=== PATIENT | female | born 1965 | race Caucasian/White ===

== ENCOUNTER 2017-04-11 08:12 | Outpatient (POV) | payer BC, SELFPAY | END 2017-04-11 13:55 | disposition home or self-care (01) | PROVIDERS: Visit Provider Podiatrist | DX: M76.72 Peroneal tendinitis, left leg (principal); M72.2 Plantar fascial fibromatosis; M25.572 Pain in left ankle and joints of left foot | CPT/HCPCS: 99213 ==

== ENCOUNTER → 2017-06-29 08:43 | Outpatient (CLI) | payer BC, SELFPAY ==
--- NOTE | 2017-06-29 08:55 | MM_ITS ---
MM Dig screening mamm BI w/CAD CAD Screening COMPARISON: Digital mammograms 10/14/2014 and 10/22/2015 INDICATION: There is no personal or family history of breast cancer TECHNIQUE: Standard CC and MLO images were obtained. R2 CAD reviewed. FINDINGS: Moderate diffuse fiber glandular densities are seen throughout both breasts. Again noted is a stable area of asymmetric glandular density upper outer quadrant left breast. There is a possible new nodular density just deep to the nipple of the left breast. This likely is a small cyst but recommend patient return for ultrasound examination for better evaluation. There are no suspicious microcalcifications. IMPRESSION: Moderate breast density with possible new asymmetric density left breast likely a cyst but recommend follow-up ultrasound BI-RADS Category: 0 Need Additional Imaging Evaluation RECOMMENDED FOLLOW-UP: IMM - IMMEDIATE FOLLOW-UP RECOMMENDED (A letter has been sent to the patient regarding results of the study.)
== END ==
PROVIDERS: PCP Internal Medicine Adolescent Medicine; Visit Provider Internal Medicine Adolescent Medicine
DX: Z12.31 Encounter for screening mammogram for malignant neoplasm of breast (principal)
CPT/HCPCS: 77067

== ENCOUNTER → 2017-07-11 10:24 | Outpatient (CLI) | payer BC, SELFPAY ==
--- NOTE | 2017-07-11 10:29 | US_ITS ---
US breast LT complete COMPARISON: 06/29/2017 INDICATION: Follow-up abnormal mammogram ORDERING PHYSICIAN: Vivian Haines PATIENT AGE: 52 years TECHNIQUE: Left breast ultrasound with axilla FINDINGS: There is a 7 x 5 mm cyst at the 2:00 region of the left breast near the nipple corresponding to the mammographic abnormality. Small nodes are present in the sella. No suspicious nodules evident IMPRESSION: Mammographic abdomen corresponds to benign-appearing cyst BI-RADS Category: 2 Benign Finding(s) RECOMMENDED FOLLOW-UP: 1YR - 1 YEAR FOLLOW-UP (A letter has been sent to the patient regarding results of the study.)
== END ==
PROVIDERS: PCP Internal Medicine Adolescent Medicine; Visit Provider Nurse Practitioner Family
DX: R92.8 Other abnormal and inconclusive findings on diagnostic imaging of breast (principal)
CPT/HCPCS: 76641

== ENCOUNTER → 2018-03-03 07:05 | Outpatient (CLI) | payer BC, SELFPAY ==
[2018-03-03 08:31] LABS: Basophils % 0.3 % (0.1-2.0); Eosinophils # 0.1 K/mm3 (0.0-0.4); Eosinophils % 1.9 % (0.1-12.0); Hematocrit 43.3 % (37.0-47.0); Hemoglobin 14.1 g/dL (12.2-16.2); Lymphocytes # 2.3 K/mm3 (0.7-4.5); Lymphocytes % 33.3 K/mm3 (10-50); Mean Corpuscular HGB Conc 32.6 g/dL (31.8-35.4); Mean Corpuscular Hemoglobin 29.3 pg (27.0-31.2); Mean Platelet Volume 7.4 fl (7.4-10.4); Monocytes # 0.4 K/mm3 (0.1-1.0); Monocytes % 5.9 % (1.7-9.3); Neutrophils # 3.9 K/mm3 (1.8-7.8); Neutrophils % 58.6 % (37.0-80.0); Platelet Count 281 K/mm3 (142-424); Red Blood Count 4.81 M/mm3 (4.20-5.40); White Blood Count 6.7 K/mm3 (4.8-10.8)
[2018-03-03 09:25] LABS: Alanine Aminotransferase 35 U/L (12-78); Albumin Level 3.9 gm/dL (3.4-5.0); Albumin/Globulin Ratio 1.3 (1.1-1.8); Alkaline Phosphatase 82 U/L (46-116); Anion Gap 9.5 mEq/L (5-15); Aspartate Amino Transferase 30 U/L (15-37); Bilirubin,Total 0.6 mg/dL (0.2-1.0); Blood Urea Nitrogen 13 mg/dL (7-18); Calcium 9.1 mg/dL (8.5-10.1); Carbon Dioxide 31 mmol/L (21.0-32.0); Chloride 106 mmol/L (98-107); Chol/HDL Ratio 1.9 (1-3.5); Cholesterol 171 mg/dL (140-200); Creatinine,Serum 0.95 mg/dL (0.55-1.02); Estimated Glomerular Filt Rate 62 ml/min (>60); Free Thyroxine Index 2.4 ug/dL (5.93-13.13); GFR (African American) 75 ML/MIN (>60); Globulin 3.1 gm/dl (1.3-3.2); Glucose 87 mg/dL (74-106); HDL Cholesterol 88 mg/dL (29-89); LDL Cholesterol 78 mg/dL (0-130); Potassium 4.5 mmoL/L (3.5-5.1); Sodium 142 mmol/L (136-145); T4 (Thyroxine) 7.5 ug/dl (4.7-13.3); Thyroid Stimulating Hormone 10.35 uIU/ml (0.358-3.740); Triglycerides 25 mg/dL (30-200); Triiodothryronine (T3) Uptake 32 % (31-39); VLDL Cholesterol 5 mg/dL (0-40)
== END ==
PROVIDERS: PCP Internal Medicine Adolescent Medicine; Visit Provider Internal Medicine Adolescent Medicine
DX: E03.9 Hypothyroidism, unspecified (principal)
CPT/HCPCS: 36415; 80053; 80061; 84436; 84443; 84479; 85025

== ENCOUNTER → 2018-08-02 06:58 | Outpatient (CLI) | payer BC, SELFPAY ==
[2018-08-02 07:16] LABS: Basophils % 0.4 % (0.1-2.0); Eosinophils # 0.2 K/mm3 (0.0-0.4); Eosinophils % 2.1 % (0.1-12.0); Hematocrit 41.8 % (37.0-47.0); Hemoglobin 13.3 g/dL (12.2-16.2); Lymphocytes # 2.8 K/mm3 (0.7-4.5); Lymphocytes % 40.2 % (10-50); Mean Corpuscular HGB Conc 31.8 g/dL (31.8-35.4); Mean Corpuscular Hemoglobin 28.8 pg (27.0-31.2); Mean Corpuscular Volume 90.3 fl (81-99); Mean Platelet Volume 7.6 fl (7.4-10.4); Monocytes # 0.3 K/mm3 (0.1-1.0); Monocytes % 4.8 % (1.7-9.3); Neutrophils # 3.7 K/mm3 (1.8-7.8); Neutrophils % 52.4 % (37.0-80.0); Platelet Count 282 K/mm3 (142-424); Red Blood Count 4.63 M/mm3 (4.20-5.40); Red Cell Distribution Width 14.3 % (11.5-17.5)
[2018-08-02 08:50] LABS: Alanine Aminotransferase 29 U/L (12-78); Albumin Level 3.8 gm/dL (3.4-5.0); Albumin/Globulin Ratio 1.2 (1.1-1.8); Alkaline Phosphatase 92 U/L (46-116); Anion Gap 12.3 mEq/L (5-15); Aspartate Amino Transferase 21 U/L (15-37); Bilirubin,Total 0.5 mg/dL (0.2-1.0); Blood Urea Nitrogen 14 mg/dL (7-18); Carbon Dioxide 28 mmol/L (21.0-32.0); Chloride 105 mmol/L (98-107); Chol/HDL Ratio 2.3 (1-3.5); Cholesterol 164 mg/dL (140-200); Creatinine,Serum 0.84 mg/dL (0.55-1.02); Estimated Glomerular Filt Rate 71 ml/min (>60); Free Thyroxine Index 4.2 ug/dL (5.93-13.13); GFR (African American) 86 ML/MIN (>60); Globulin 3.1 gm/dl (1.3-3.2); Glucose 90 mg/dL (74-106); HDL Cholesterol 71 mg/dL (29-89); LDL Cholesterol 81 mg/dL (0-130); Potassium 4.3 mmoL/L (3.5-5.1); Sodium 141 mmol/L (136-145); T4 (Thyroxine) 10.7 ug/dl (4.7-13.3); Thyroid Stimulating Hormone 0.05 uIU/ml (0.358-3.740); Total Protein,Serum 6.9 gm/dL (6.4-8.2); Triglycerides 60 mg/dL (30-200); Triiodothryronine (T3) Uptake 39 % (31-39); VLDL Cholesterol 12 mg/dL (0-40)
== END ==
PROVIDERS: Visit Provider Internal Medicine Adolescent Medicine
DX: E03.9 Hypothyroidism, unspecified (principal); Z86.39 Personal history of other endocrine, nutritional and metabolic disease
CPT/HCPCS: 36415; 80053; 80061; 84436; 84443; 84479; 85025

== ENCOUNTER → 2018-12-28 16:07 | Outpatient (CLI) | payer BC, SELFPAY ==
--- NOTE | 2018-12-28 16:11 | MM_ITS ---
PROCEDURE: MM DIG SCREENING MAMM BI W/CAD CLINICAL INDICATION: SCREENING There is no personal or family history of breast cancer COMPARISON: [facility] DIG MAMM-SCREEN [facility] from 10/14/2014 [facility] DIG MAMM-SCREEN [facility] from 10/22/2015 [facility] MM Dig screening mamm BI w/CAD from 06/29/2017 TECHNIQUE: Standard CC and MLO images were obtained. R2 CAD reviewed. FINDINGS: There has been some fatty replacement of the breast parenchyma since the previous 2 exams. Minimal scattered fibroglandular densities are seen in the central portions bilaterally. There is a mole marker right breast. Is a stable asymmetric density upper-outer quadrant left breast likely asymmetric glandular tissue. There is no suspicious lesion on the no suspicious microcalcifications. IMPRESSION: Fatty type breast parenchyma with no suspicious lesion seen BI-RAD Category: 2 Benign Finding(s) FOLLOW-UP: 1YR 1 Year Follow-up (A letter has been sent to the patient regarding results of the study.) Dictated by: Dr. Tomas Fabian MD 12/30/2018 13:35 Signed by: <Electronically signed by Dr. Tomas Fabian MD in [place]> 12/30/2018 13:35
== END ==
PROVIDERS: PCP Internal Medicine Adolescent Medicine; Visit Provider Internal Medicine Adolescent Medicine
DX: Z12.31 Encounter for screening mammogram for malignant neoplasm of breast (principal)
CPT/HCPCS: 77067

== ENCOUNTER → 2019-06-20 15:55 | Outpatient (CLI) | payer BC, SELFPAY ==
[2019-06-20 16:27] LABS: Basophils # 0.1 K/mm3 (0-0.2); Basophils % 0.6 % (0.1-2.0); Eosinophils # 0.1 K/mm3 (0.0-0.4); Eosinophils % 1.7 % (0.1-12.0); Hematocrit 41.9 % (37.0-47.0); Hemoglobin 13.9 g/dL (12.2-16.2); Lymphocytes # 2.8 K/mm3 (0.7-4.5); Lymphocytes % 35.7 % (10-50); Mean Corpuscular Hemoglobin 28.7 pg (27.0-31.2); Mean Corpuscular Volume 86.8 fl (81-99); Monocytes # 0.4 K/mm3 (0.1-1.0); Monocytes % 5.4 % (1.7-9.3); Neutrophils # 4.5 K/mm3 (1.8-7.8); Neutrophils % 56.6 % (37.0-80.0); Platelet Count 283 K/mm3 (142-424); Red Blood Count 4.83 M/mm3 (4.20-5.40); Red Cell Distribution Width 13.5 % (11.5-17.5); White Blood Count 7.9 K/mm3 (4.8-10.8)
[2019-06-20 19:56] LABS: Alanine Aminotransferase 22 U/L (9-52); Albumin Level 4.2 g/dL (3.4-5.0); Albumin/Globulin Ratio 1.4 (1.1-1.8); Alkaline Phosphatase 87 U/L (46-116); Anion Gap 14.5 mEq/L (5-15); Aspartate Amino Transferase 21 U/L (15-37); Bilirubin,Total 0.4 mg/dL (0.2-1.0); Blood Urea Nitrogen 17 mg/dL (7-18); Calcium 9.4 mg/dL (8.5-10.1); Carbon Dioxide 28 mmol/L (21.0-32.0); Chloride 105 mmol/L (98-107); Cholesterol 155 mg/dL (140-200); Estimated Glomerular Filt Rate 65 ml/min (>60); Free Thyroxine Index 4.5 ug/dL (5.93-13.13); GFR (African American) 79 ML/MIN (>60); Globulin 2.9 gm/dl (1.3-3.2); Glucose 77 mg/dL (74-106); HDL Cholesterol 77 mg/dL (29-89); LDL Cholesterol 69 mg/dL (0-130); Potassium 4.5 mmoL/L (3.5-5.1); Sodium 143 mmol/L (137-145); T4 (Thyroxine) 11.9 ug/dl (4.7-13.3); Thyroid Stimulating Hormone 0.01 uIU/ml (0.358-3.740); Total Protein,Serum 7.1 g/dL (6.4-8.2); Triglycerides 47 mg/dL (30-200); Triiodothryronine (T3) Uptake 38 % (31-39); VLDL Cholesterol 9 mg/dL (0-40)
== END ==
PROVIDERS: Visit Provider Internal Medicine Adolescent Medicine
DX: E03.9 Hypothyroidism, unspecified (principal); Z86.39 Personal history of other endocrine, nutritional and metabolic disease
CPT/HCPCS: 36415; 80053; 80061; 84436; 84443; 84479; 85025

== ENCOUNTER 2019-11-22 14:03 | Emergency (ER) | payer OTHER, SELFPAY ==
[2019-11-22 14:13] VITALS: BP 139/79; PULSE 69; RESP 18; TEMP 36.7; O2SAT 98; BMI 33.4
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
[2019-11-22 14:29] VITALS: BP 139/73; PULSE 77; RESP 20; O2SAT 97
--- NOTE | 2019-11-22 14:48 | XR_ITS ---
PROCEDURE: XR HAND RT MIN 3V CLINICAL INDICATION: COMPARISON: No exams were available for comparison FINDINGS: No fracture or dislocation. No lytic or blastic change. There is normal mineralization. The joint spaces are well-preserved. No significant degenerative/arthritic changes. No erosive changes evident. Other findings:None. IMPRESSION: No acute findings. Dictated by: Maximo Armas MD 11/22/2019 15:34 Electronically signed by Maximo Armas MD in [place] 11/22/2019 15:34
[2019-11-22 15:24] VITALS: BP 123/85; PULSE 80; RESP 18; TEMP 36.8; O2SAT 98
== END 2019-11-22 15:26 | disposition home or self-care (01) ==
PROVIDERS: Emergency Provider Emergency Medicine; PCP Internal Medicine Adolescent Medicine
DX: S50.811A Abrasion of right forearm, initial encounter (principal); S63.642A Sprain of metacarpophalangeal joint of left thumb, initial encounter; V89.2XXA Person injured in unspecified motor-vehicle accident, traffic, initial encounter; Z88.0 Allergy status to penicillin
CPT/HCPCS: 29125; 73090; 73130; 99283

== ENCOUNTER → 2020-05-23 12:27 | Outpatient (CLI) | payer BC, SELFPAY ==
[2020-05-23 13:40] LABS: Alanine Aminotransferase 12 U/L (12-78); Albumin Level 4.7 g/dl (3.5-5.0); Albumin/Globulin Ratio 1.6 (1.1-1.8); Alkaline Phosphatase 90 U/L (38-126); Anion Gap 10.8 mEq/L (5-15); Aspartate Amino Transferase 25 U/L (14-36); Bilirubin,Total 0.5 mg/dl (0.2-1.3); Blood Urea Nitrogen 13 mg/dl (7-17); Carbon Dioxide 29 mmol/L (22.0-30.0); Chloride 104 mmol/L (98-107); Chol/HDL Ratio 2.1 (1-3.5); Cholesterol 165 mg/dl (140-200); Estimated Glomerular Filt Rate 65 ml/min (>60); GFR (African American) 79 ML/MIN (>60); Glucose 93 mg/dl (74-100); HDL Cholesterol 80 mg/dl (40-60); Potassium 4.8 mmoL/L (3.5-5.1); Sodium 139 mmol/L (136-145); Total Protein,Serum 7.7 g/dl (6.3-8.2); Triglycerides 55 mg/dl (30-150); VLDL Cholesterol 11 mg/dL (0-40)
[2020-05-23 13:51] LABS: Direct LDL Cholesterol 59.92 mg/dL (100-129)
[2020-05-23 14:10] LABS: Thyroid Stimulating Hormone 7.64 uIU/mL (0.465-4.68)
== END ==
PROVIDERS: Visit Provider Internal Medicine Adolescent Medicine
DX: E04.1 Nontoxic single thyroid nodule (principal); Z79.899 Other long term (current) drug therapy
CPT/HCPCS: 36415; 80053; 80061; 84443

== ENCOUNTER → 2020-06-02 14:39 | Outpatient (CLI) | payer BC, SELFPAY ==
--- NOTE | 2020-06-02 14:44 | US_ITS ---
PROCEDURE: US THYROID CLINICAL INDICATION: THYROID NODULE Follow-up thyroid nodule COMPARISON: US THY US THYROID from 07/21/2015 FINDINGS: Right lobe: 2.3cm x 4.8cm x 2.2cm Left lobe: 1.8cm x 4.5cm x 1.7cm Isthmus: 4 mm. Additional findings: There is mild diffuse heterogeneous echogenicity of the thyroid gland. There is a 14 x 9 mm slightly hyperechoic nodule in the upper pole anteriorly unchanged. A small hyperechoic nodules present in the mid polar region on the left at 5 mm. An additional hyperechoic nodule noted on the left at 12 mm not significantly changed. An additional hyperechoic nodule in the lower pole at 4 mm probably unchanged. IMPRESSION: Enlarged thyroid gland with bilateral hyperechoic nodules which have a benign appearance and are overall not significantly changed Dictated by: Maximo Armas MD 06/03/2020 12:53 Maximo Armas MD in [place] 06/03/2020 12:53
== END ==
PROVIDERS: PCP Internal Medicine Adolescent Medicine; Visit Provider Nurse Practitioner Family
DX: E04.1 Nontoxic single thyroid nodule (principal)
CPT/HCPCS: 76536

== ENCOUNTER → 2020-08-01 08:22 | Outpatient (CLI) | payer BC, SELFPAY ==
[2020-08-01 09:45] LABS: Thyroid Stimulating Hormone 4.65 uIU/mL (0.465-4.68)
== END ==
PROVIDERS: Visit Provider Nurse Practitioner Family
DX: E03.9 Hypothyroidism, unspecified (principal)
CPT/HCPCS: 36415; 84443

== ENCOUNTER → 2021-08-15 08:22 | Outpatient (CLI) | payer BC, SELFPAY ==
[2021-08-15 09:19] LABS: Basophils # 0.1 K/mm3 (0-0.2); Eosinophils # 0.2 K/mm3 (0.0-0.4); Hematocrit 41.6 % (37.0-47.0); Hemoglobin 13.5 g/dL (12.2-16.2); Lymphocytes # 1.4 K/mm3 (0.7-4.5); Lymphocytes % 23.2 % (10-50); Mean Corpuscular HGB Conc 32.4 g/dL (31.8-35.4); Mean Corpuscular Hemoglobin 28.5 pg (27.0-31.2); Mean Corpuscular Volume 87.9 fl (81-99); Mean Platelet Volume 8.5 fl (7.4-10.4); Monocytes # 0.3 K/mm3 (0.1-1.0); Monocytes % 5.6 % (1.7-9.3); Neutrophils # 3.9 K/mm3 (1.8-7.8); Neutrophils % 67.2 % (37.0-80.0); Platelet Count 333 K/mm3 (142-424); Red Blood Count 4.73 M/mm3 (4.20-5.40); Red Cell Distribution Width 15.2 % (11.5-17.5); White Blood Count 5.8 K/mm3 (4.8-10.8)
[2021-08-15 09:41] LABS: Alanine Aminotransferase 19 U/L (12-78); Albumin Level 4.1 g/dl (3.5-5.0); Albumin/Globulin Ratio 1.6 (1.1-1.8); Alkaline Phosphatase 75 U/L (38-126); Anion Gap 8.1 mEq/L (5-15); Aspartate Amino Transferase 23 U/L (14-36); Bilirubin,Total 0.8 mg/dl (0.2-1.3); Blood Urea Nitrogen 12 mg/dl (7-17); Calcium 9.4 mg/dl (8.4-10.2); Carbon Dioxide 29 mmol/L (22.0-30.0); Chloride 108 mmol/L (98-107); Chol/HDL Ratio 2.6 (1-3.5); Cholesterol 146 mg/dl (140-200); Estimated Glomerular Filt Rate 65 ml/min (>60); GFR (African American) 78 ML/MIN (>60); Globulin 2.5 g/dL (1.3-3.2); Glucose 118 mg/dl (74-100); HDL Cholesterol 56 mg/dl (40-60); Potassium 4.1 mmoL/L (3.5-5.1); Sodium 141 mmol/L (136-145); Total Protein,Serum 6.6 g/dl (6.3-8.2); Triglycerides 77 mg/dl (30-150); VLDL Cholesterol 15 mg/dL (0-40)
[2021-08-15 09:52] LABS: Direct LDL Cholesterol 59.45 mg/dL (100-129)
[2021-08-15 09:58] LABS: 25-OH Vitamin D, Total 21.8 ng/mL (30-100)
[2021-08-15 10:12] LABS: Thyroid Stimulating Hormone 3.58 uIU/mL (0.465-4.68)
[2021-08-15 10:31] LABS: Vitamin B12 250 pg/mL (239-931)
== END ==
PROVIDERS: Visit Provider Internal Medicine Adolescent Medicine
DX: E03.9 Hypothyroidism, unspecified (principal); Z86.39 Personal history of other endocrine, nutritional and metabolic disease; R53.81 Other malaise; R53.83 Other fatigue
CPT/HCPCS: 36415; 80053; 80061; 82306; 82607; 84443; 85025

== ENCOUNTER → 2021-10-06 13:07 | Outpatient (CLI) | payer BC, SELFPAY ==
--- NOTE | 2021-10-06 13:10 | MM_ITS ---
PROCEDURE INFORMATION: Exam: MG Bilateral Screening 3D Mammography Exam date and time: 10/06/2021 1:08 PM Age: 56 years old Clinical indication: Screening examination. No family history of breast cancer. TECHNIQUE: Imaging protocol: Bilateral Screening tomosynthesis and 2D mammography including computer-aided detection (CAD) when performed. COMPARISON: 1. MG MM DIG SCREENING MAMM BI W/CAD 12/28/2018 4:21 PM 2. MG [facility] MM Dig screening mamm BI w/CAD 06/29/2017 9:00 AM 3. MG [facility] DIG MAMM-SCREEN [facility] 10/22/2015 9:10 AM 4. MG [facility] DIG MAMM-SCREEN [facility] 10/14/2014 9:27 AM FINDINGS: MAMMOGRAPHY: Breast composition: The breasts are almost entirely fatty. Mass: Interval new suspicious 3.2 cm lobulated, dense mass with architectural distortion in the left central breast, approximately 6-7 o'clock, posterior 3rd (CC image 1372, frame 19 [place] [id number], frame 40). Several 0.5 cm nodules - in the inner lower quadrant, anterior 3rd (about 4.5 cm anterior and inferior to the dominant mass) and outer quadrant middle 3rd (about 2.3 cm lateral to the dominant mass) may reflect additional extent of disease (CC image 1362, frame 26 and MLO image [id number], frame 38). Interval new lobulated 1.0 cm mass in the right upper inner breast, anterior to middle 3rd, (CC image 1026, frame 50 and MLO image 1718, frame 59). Architectural distortion: None. Calcifications: No suspicious calcifications. Asymmetric density: None. Skin thickening: None. Axillary adenopathy: None. IMPRESSION: Patient to be recalled for left diagnostic spot compression in CC and MLO as well as bilateral breast ultrasound for further evaluation of bilateral masses. ASSESSMENT: BI-RADS Category 0: Incomplete- Need Additional Imaging Evaluation and/or Prior Mammograms for Comparison
== END ==
PROVIDERS: PCP Internal Medicine Adolescent Medicine; Visit Provider Internal Medicine Adolescent Medicine
DX: Z12.31 Encounter for screening mammogram for malignant neoplasm of breast (principal)
CPT/HCPCS: 77063; 77067

== ENCOUNTER → 2021-10-26 13:26 | Outpatient (CLI) | payer BC, SELFPAY ==
--- NOTE | 2021-10-26 13:32 | US_ITS ---
PROCEDURE INFORMATION: Exam: US Right Breast, Complete US Left Breast, Complete MG Left Diagnostic Breast Tomosynthesis Exam date and time: 10/26/2021 1:39 PM Age: 56 years old Clinical indication: Recall on the basis of screening mammogram 10/06/2021 for futher evaluation of bilateral breast masses. TECHNIQUE: Imaging protocol: Complete ultrasound of all four quadrants of the Right breast and the retroareolar regions, including ultrasound of the axilla when performed. Complete ultrasound of all four quadrants of the Left breast and the retroareolar regions, including ultrasound of the axilla when performed. Left Diagnostic tomosynthesis and 2D mammography including computer-aided detection (CAD) when performed. Unilateral or bilateral exam. COMPARISON: 1. MG MM DIG SCREENING MAMM BI W/CAD 10/06/2021 1:08 PM 2. MG MM DIG SCREENING MAMM BI W/CAD 12/28/2018 4:21 PM 3. MG [facility] MM Dig screening mamm BI w/CAD 06/29/2017 9:00 AM 4. MG [facility] DIG MAMM-SCREEN [facility] 10/22/2015 9:10 AM FINDINGS: MAMMOGRAPHY: Diagnostic spot compression confirms the approximately 3.5 cm lobulated dense mass with related architectural distortion in the left central breast, approximately 6-7 o'clock posterior 3rd. ULTRASOUND: Bilateral sonography, all 4 quadrants, retroareolar and axilla. On the right, at 1 o'clock, 3 cm from the nipple is a benign-appearing cyst measuring 0.5 x 0.5 x 0.6 cm, which appears to correspond to the mammographic mass. No solid masses demonstrated. Sonographically unremarkable right axillary lymph node. On the left, at 6 o'clock 6 cm from the nipple, hypoechoic mildly lobulated mass, minimal peripheral increased Doppler flow, measuring 3.1 x 2.2 by 3.2 cm, which corresponds to the mammographic mass. No other masses are demonstrated. Sonographically unremarkable left axillary lymph node. IMPRESSION: Recommend ultrasound-guided biopsy of hypoechoic lobulated mass in the left breast at 6 o'clock with correlation to assure that the ultrasound placed clip corresponds to the mammographic finding. (If this is positive for cancer, advise consideration for exent of disease MRI as subcm nodules were suggested in the inner lower and outer quadrant on the initial mammogram, with no sonographic correlate). Sub cm mass on the right corresponds to a cyst at 1 o'clock. ASSESSMENT: BI-RADS Category 4: Suspicious
== END ==
PROVIDERS: PCP Internal Medicine Adolescent Medicine; Visit Provider Internal Medicine Adolescent Medicine
DX: R92.8 Other abnormal and inconclusive findings on diagnostic imaging of breast (principal)
CPT/HCPCS: 76641; 77061; 77065; G0279

== ENCOUNTER → 2021-10-30 08:19 | Outpatient (CLI) | payer BC, SELFPAY ==
--- NOTE | 2021-10-30 08:26 | US_ITS ---
FINAL REPORT CLINICAL HISTORY: lt bresat nodule 6:00 FINDINGS: ULTRASOUND-GUIDED LEFT BREAST CORE BIOPSY TECHNIQUE: Limited images were obtained to localize region of interest. Lesion was noted in the posterior left breast at 6:00. The left breast was prepped in a routine sterile fashion and locally anesthetized with 1% lidocaine. Standard written informed consent was obtained. The biopsy needle was positioned within the outer periphery of the lesion. A total of 4 passes were made with a 18 gauge core biopsy needle. A biopsy marker clip was deployed in satisfactory position. Postbiopsy mammogram showed postbiopsy changes with clip in satisfactory position. Procedure was well tolerated . CONCLUSION: 1. Technically successful ultrasound guided core biopsy of left breast lesion as above. 2. Biopsy marker clip deployed Authenticated and ERN
--- NOTE | 2021-10-30 08:37 | MM_ITS ---
FINAL REPORT CLINICAL HISTORY: post biopsy, breast mass FINDINGS: MAMMOGRAM LEFT TECHNIQUE: Standard digital 2-D views COMPARISON: None DENSITY: There are scattered areas of fibroglandular density FINDINGS: Post biopsy marker clip is noted to be in satisfactory position. The clip is noted to be within a well-circumscribed mass in the posterior left breast located at 6:00. Postbiopsy changes are noted. IMPRESSION: Biopsy marker clip in good position RECOMMENDATION: Pending histopathology evaluation Authenticated and ERN
== END ==
LOC: RAD 08:19
PROVIDERS: PCP Internal Medicine Adolescent Medicine; Visit Provider Internal Medicine Adolescent Medicine
DX: R92.8 Other abnormal and inconclusive findings on diagnostic imaging of breast (principal); N63.25 Unspecified lump in the left breast, overlapping quadrants
CPT/HCPCS: 19083; 77065

== ENCOUNTER → 2021-11-25 12:24 | Outpatient (CLI) | payer BC, SELFPAY | PROVIDERS: PCP Internal Medicine Adolescent Medicine; Visit Provider Surgery Surgical Oncology | DX: Z01.812 Encounter for preprocedural laboratory examination (principal); Z20.822 Contact with and (suspected) exposure to COVID-19; C50.919 Malignant neoplasm of unspecified site of unspecified female breast | CPT/HCPCS: C9803; U0003; U0005 ==

== ENCOUNTER 2023-11-13 08:24 | Emergency (ER) | payer BC, SELFPAY ==
[2023-11-13 08:26] VITALS: BP 116/89; PULSE 75; RESP 18; TEMP 36.7; O2SAT 99; BMI 30.9
--- NOTE | 2023-11-13 08:33 | HMH.EDGENADL ---
Discharge Plan Disposition Patient Disposition: Home, Self-Care Condition: Good Prescriptions Prescriptions: No Action levothyroxine [Euthyrox] 88 mcg tablet 88 mcg PO Patient Comments: TAKE 1 TABLET BY MOUTH ONCE DAILY Clenpiq 10 mg-3.5 gram- 12 gram/160 mL solution 160 ml PO DAILY Qty: 350 0RF Rx Instructions: take first dose at 5-9PM evening before colonoscopy; 2nd dose the next day approximately 5 hrs before colonoscopy Referrals Follow up/Referrals: Dejon Nova MD [Primary Care Provider] - See instructions Activity Restrictions/Add. Instructions Additional Instructions/Restrictions: As we discussed, it is possible that your nausea and vomiting and feeling of dehydration is related to your elevated blood sugars. Please use nausea medication as needed and make sure you are drinking plenty of liquids and keeping an eye on your blood sugars. Please follow-up with your specialist for considerations regarding ongoing management of your immunotherapy. Please return with any new or worsening symptoms. Clinical Impressions Clinical Impression: Hypovolemia Instructions Patient Instructions: DI for Diarrhea and Traveler's Diarrhea -- Adult, DI for Diarrhea and Traveler's Diarrhea -- Child, DI for Nausea -- Adult, DI for Nausea -- Child Discharge ED Provider: Nghia Castrejon General Adult HPI General Chief complaint: Nausea/Vomiting/Diarrhea Stated complaint: feels dehidrated Time Seen by Provider: 11/13/23 08:33 History of Present Illness HPI narrative: The patient presents with a chief complaint of dehydration, nausea, and vomiting. She has a history of cancer, infection, chemotherapy, radiation, and is currently on Keytruda, which has caused her blood sugar levels to increase significantly. She reports difficulty keeping anything in her stomach, including food and fluids, for the past two to three days. She has been experiencing both diarrhea and constipation but denies any pain, fever, shortness of breath, chest pain, or pain with urination. She has been on Keytruda since September and has three more treatments left. Her oncologist is considering stopping the Keytruda due to the elevated blood sugar levels. Her blood sugar is currently under control at 155, but she has not taken insulin for the past two days due to concerns of bottoming out at night. She has been prescribed Phenergan, Zofran, and Reglan for nausea, but has only been taking Phenergan recently, which she believes may be coming back up due to vomiting. She has not taken Reglan for the past three to four days for the same reason. She took Phenergan approximately two hours prior to the visit. Please note that above description of symptoms, in this electronic medical record under categorization of recalled from ER triage doctor by RN are reflective of an initial nursing assessment, however, is not reflective of my full history and physical exam that was personally taken and clarified. Consequentially, this preceding description of symptoms, which may include the patient's categorized chief complaint in the EMR, do not reflect my personal clinical impression, and the ultimate description of history of present illness and patient stated complaints should be deferred to this section of the note. Unless stated otherwise or congruent with this section of the note, additional signs, symptoms, or incongruence should be interpreted as inaccurate with my clinical impression. Related Data Home Medications Medication Instructions Recorded Confirmed levothyroxine 88 mcg tablet 88 mcg PO 10/21/21 02/07/23 (Euthyrox) Previous Rx's Medication Instructions Recorded sod picosulf 10 mg-magnes 3.5 160 ml PO DAILY 2 doses #350 mL 03/18/23 gram-citric 12 gram/160 mL oral solution (Clenpiq) Allergies Allergy/AdvReac Type Severity Reaction Status Date / Time Penicillins [PENICILLINS] Allergy Unknown Verified 02/07/23 13:28 [facility] Disclaimer: The information contained in this section may have been updated after the patient was seen, as this information can be updated by other users. Medical History (Updated 11/13/23 @ 11:23 by Nghia Castrejon MD) Breast cancer Surgical History (Updated 02/07/23 @ 13:29 by BRETT Ash) History of lumpectomy of left breast Family History (Updated 02/07/23 @ 13:29 by BRETT Ash) Other No significant family history Social History (Updated 02/07/23 @ 13:29 by BRETT Ash) Smoking Status: Never smoker alcohol intake: current alcohol intake frequency: holidays/special occasions only substance use type: denies use current occupational status: employed Travel in the last 8 weeks: None housing: house ROS Obtained: Yes other As per HPI Physical Exam General General appearance: alert and in no apparent distress Head Head exam: atraumatic and normocephalic Eye Eye exam: Present normal appearance Neck Neck exam: Present normal inspection Chest Chest inspection: Present normal inspection and symmetric chest wall rise Respiratory Respiratory exam: Present normal lung sounds bilaterally; Absent respiratory distress Cardiovascular Cardiovascular exam: Present regular rate and normal rhythm Abdominal Exam Abdominal exam: Present soft Neurological Exam Neurological exam: Present alert and oriented X3 Psychiatric Psychiatric exam: Present normal affect and normal mood Skin Skin exam: Present warm and dry Other Other exam information: Mucous membranes dry, no abdominal tenderness to palpation, no guarding, no rebound tenderness Medical Decision Making Medical Records Medical records reviewed: Yes I reviewed the patient's medical records. [place] Inquiry Pt receiving controlled substance: No Vital Signs: 11/13/23 08:26 Temperature 98.1 F Temperature Source Oral Pulse Rate [Right] 75 Respiratory Rate 18 Blood Pressure [Right Arm] 116/89 Blood Pressure Mean [Right Arm] 98 02 Sat by Pulse Oximetry 99 Oxygen Delivery Method Room Air Lab Data Lab Results 11/13/23 07:07: Lipase 100 11/13/23 08:41: WBC 4.5 L, RBC 4.63, Hgb 13.9, Hct 43.0, MCV 93.1, MCH 30.1, MCHC 32.4, RDW 15.6, Plt Count 236, MPV 8.2, Neut % (Auto) 75.8, Lymph % (Auto) 16.6, [place] % (Auto) 6.3, Eos % (Auto) 0.9, Baso % (Auto) 0.3, Neut # (Auto) 3.4, Lymph # (Auto) 0.7, [place] # (Auto) 0.3, Eos # (Auto) 0.0, Baso # (Auto) 0.0, Sodium 142, Potassium 4.0, Chloride 107, Carbon Dioxide 27, Anion Gap 12.0, BUN 21 H, Creatinine 0.90, Estimated Creat Clear 99, Estimated GFR 64, Est GFR ( Amer) 78, Glucose 160 H, Calcium 10.3 H, Magnesium 1.9, Total Bilirubin 1.1, AST 69 H, ALT 131 H, Alkaline Phosphatase 192 H, Total Protein 8.0, Albumin 4.7, Globulin 3.3 H, Albumin/Globulin Ratio 1.4 11/13/23 08:49: VBG pH 7.40, VBG pCO2 39.6, VBG pO2 42.1 H, VBG HCO3 23.9, VBG Total CO2 25.1, VBG O2 Saturation 78.3 H, VBG Base Excess -0.9, VBG Lactic Acid 1.7 11/13/23 08:41 11/13/23 08:41 Orders (Tests/Meds): ED MEDICATIONS Discontinued Medications Generic Name Dose Route Start Last Admin Trade Name Freq PRN Reason Stop Dose Admin Lactated Ringer's 1,000 mls @ 999 mls/hr 11/13/23 08:46 11/13/23 08:53 Lactated Ringer's 1000 Ml Bag IV 11/13/23 09:46 999 mls/hr .Q1H1M ONE Administration ORDERS Category Date Time Status CBC w/Auto Diff [Complete Blood Count Auto Diff] Stat Lab 11/13/23 08:41 Completed CMP [Comprehensive Metabolic Panel] Stat Lab 11/13/23 08:41 Completed Lipase Stat Lab 11/13/23 07:07 Completed MAG [Magnesium] Stat Lab 11/13/23 08:41 Completed VBG [Venous Blood Gas] Stat RT 11/13/23 08:49 Completed Medical Decision Narrative: Patient with history and exam per above presenting for evaluation of nausea, vomiting, hyperglycemia, concerns for dehydration Diagnoses considered include hypovolemia, acute kidney injury, electrolyte abnormality, DKA, immunotherapy side effect, pancreatitis, no clinical evidence at this time to warrant imaging given benign abdominal exam, no reported history of chest pain, abdominal pain, or pain elsewhere. ED workup and treatment included: ED MEDICATIONS Discontinued Medications Generic Name Dose Route Start Last Admin Trade Name Freq PRN Reason Stop Dose Admin Lactated Ringer's 1,000 mls @ 999 mls/hr 11/13/23 08:46 11/13/23 08:53 Lactated Ringer's 1000 Ml Bag IV 11/13/23 09:46 999 mls/hr .Q1H1M ONE Administration ORDERS Category Date Time Status CBC w/Auto Diff [Complete Blood Count Auto Diff] Stat Lab 11/13/23 08:41 Completed CMP [Comprehensive Metabolic Panel] Stat Lab 11/13/23 08:41 Completed Lipase Stat Lab 11/13/23 07:07 Completed MAG [Magnesium] Stat Lab 11/13/23 08:41 Completed VBG [Venous Blood Gas] Stat RT 11/13/23 08:49 Completed Labs were independently interpreted by me, significant for AST 69, ALT 131, patient reports these are chronic findings since initiation of immunotherapy, creatinine within normal limits, white blood cell count 4.5. My clinical impression at this time is most consistent with hypovolemia related to recent hyperglycemia. Patient reports complete resolution of symptoms after administration of IV fluid. I discussed my clinical impression with patient and answered all questions. At this time, the evidence for any other entities in the differential is insufficient to warrant any further testing or ED observation. This was explained to the patient. The patient was advised that persistent or worsening symptoms require further evaluation. I confirmed the patient's understanding of this discussion. Critical Care Critical Care Time Critical Care Time: No
[2023-11-13] MEDS: LACTATED RINGERS 1000ML 1,000 ML 999 ML IV (08:53)
[2023-11-13 08:55] LABS: Lactate Venous 1.7 mmol/L (0.4-2.0); VBG Base Excess -0.9 mmol/L (-2.4-2.3); VBG HCO3 23.9 mmol/L (23-30); VBG Oxygen Saturation 78.3 % (50-70); VBG PCO2 39.6 mmol/L (35-51); VBG PO2 42.1 mmol/L (28-40); VBG Total CO2 25.1 mmol/L (23-27)
[2023-11-13 09:06] LABS: Basophils % 0.3 % (0.1-2.0); Eosinophils % 0.9 % (0.1-12.0); Hemoglobin 13.9 g/dL (12.2-16.2); Lymphocytes # 0.7 K/mm3 (0.7-4.5); Lymphocytes % 16.6 % (10-50); Mean Corpuscular HGB Conc 32.4 g/dL (31.8-35.4); Mean Corpuscular Hemoglobin 30.1 pg (27.0-31.2); Mean Corpuscular Volume 93.1 fl (81-99); Mean Platelet Volume 8.2 fl (7.4-10.4); Monocytes # 0.3 K/mm3 (0.1-1.0); Monocytes % 6.3 % (1.7-9.3); Neutrophils # 3.4 K/mm3 (1.8-7.8); Neutrophils % 75.8 % (37.0-80.0); Platelet Count 236 K/mm3 (142-424); Red Blood Count 4.63 M/mm3 (4.20-5.40); Red Cell Distribution Width 15.6 % (11.5-17.5); White Blood Count 4.5 K/mm3 (4.8-10.8)
[2023-11-13 09:10] LABS: Alanine Aminotransferase 131 U/L (12-78); Albumin Level 4.7 g/dl (3.5-5.0); Albumin/Globulin Ratio 1.4 (1.1-1.8); Alkaline Phosphatase 192 U/L (38-126); Aspartate Amino Transferase 69 U/L (14-36); Bilirubin,Total 1.1 mg/dl (0.2-1.3); Blood Urea Nitrogen 21 mg/dl (7-17); Calcium 10.3 mg/dl (8.4-10.2); Carbon Dioxide 27 mmol/L (22.0-30.0); Chloride 107 mmol/L (98-107); Creatinine Clearance Estimated 99 mL/min (50-200); Estimated Glomerular Filt Rate 64 ml/min (>60); GFR (African American) 78 ML/MIN (>60); Globulin 3.3 g/dL (1.3-3.2); Glucose 160 mg/dl (74-100); Magnesium 1.9 mg/dl (1.6-2.3); Sodium 142 mmol/L (136-145)
[2023-11-13 11:12] LABS: Lipase 100 U/L (23-300)
[2023-11-13 11:23] VITALS: BP 145/82; PULSE 47; RESP 18; TEMP 36.6; O2SAT 95
--- NOTE | 2023-11-13 11:38 | PC.NURSE ---
spoke with MD regarding pt pulse rate.
== END 2023-11-13 11:38 | disposition home or self-care (01) ==
PROVIDERS: Emergency Provider Emergency Medicine; PCP Internal Medicine Adolescent Medicine
DX: E86.1 Hypovolemia (principal); R11.2 Nausea with vomiting, unspecified; E11.9 Type 2 diabetes mellitus without complications; Z85.3 Personal history of malignant neoplasm of breast; Z92.21 Personal history of antineoplastic chemotherapy; Z92.25 Personal history of immunosuppression therapy; Z79.4 Long term (current) use of insulin
CPT/HCPCS: 80053; 82803; 83690; 83735; 85025; 96360; 99284; J1642; J7120

== ENCOUNTER 2023-11-14 09:17 | Outpatient (CLI) | payer BC, SELFPAY ==
--- NOTE | 2023-11-14 09:26 | US_ITS ---
FINAL REPORT CLINICAL HISTORY: RECURRENT VOMITTING;RECURRENT MALIGNANT NEOPLASM OF BREAST FINDINGS: Sonographic images of the abdomen were obtained. There is increased echogenicity in the liver consistent with fatty infiltration. Hypoechoic areas in the liver are of uncertain significance and may represent areas of focal fatty sparing. The patient is status postcholecystectomy. There is no evidence of biliary ductal dilatation. The common hepatic duct measures 5 mm, which is within normal limits. Limited images of the pancreas are unremarkable. The spleen size is normal. The right kidney measures 10.8 in length. The left kidney measures 9.9 in length. There is normal renal echogenicity. There is no evidence of hydronephrosis. The aorta has an unremarkable appearance. Limited images of the inferior vena cava are unremarkable. IMPRESSION: Fatty liver. Hypoechoic areas in the liver may represent areas of focal fatty sparing. If indicated, consider follow-up ultrasound or MRI. Reviewed, Interpreted and Dictated by Satnam White III, MD Transcribed by Celine Tan Authenticated and [facility]
--- NOTE | 2023-11-14 10:31 | MR_ITS ---
FINAL REPORT CLINICAL HISTORY: MALIGNANT NEOPLASM OF BREAST, HEADACHE. HX BREAST CANCER. MASTECTOMY July. FINDINGS: Multiplanar MR imaging of the brain was performed without contrast. There is mild ventricular enlargement worrisome for mild hydrocephalus. There is a well-circumscribed mass in the right posterior fossa, superiorly, measuring 33 x 22 mm with moderate adjacent edema. An extra-axial mass is favored and may represent an tentorial meningioma. There is mass effect on the fourth ventricle. No area of abnormal restricted diffusion is identified. Normal major vessel vascular flow voids are seen. IMPRESSION: 3.3 mm right posterior fossa mass worrisome for a meningioma. Follow-up MRI with contrast is recommended. Findings worrisome for mild hydrocephalus. Reviewed, Interpreted and Dictated by Satnam White III, MD Transcribed by Celine Tan Authenticated and [facility]
== END 2023-11-14 23:59 | disposition home or self-care (01) ==
PROVIDERS: PCP Internal Medicine Adolescent Medicine; Visit Provider Internal Medicine Adolescent Medicine
DX: R11.10 Vomiting, unspecified (principal); R51.9 Headache, unspecified; C50.919 Malignant neoplasm of unspecified site of unspecified female breast; K76.0 Fatty (change of) liver, not elsewhere classified
CPT/HCPCS: 70551; 76700

== ENCOUNTER 2023-11-19 12:42 | Emergency (ER) | payer BC, SELFPAY ==
[2023-11-19 12:44] VITALS: BP 116/81; PULSE 86; RESP 16; TEMP 36.6; O2SAT 99; BMI 30.4
[2023-11-19 13:00] VITALS: BP 102/59; PULSE 60; RESP 18; O2SAT 100
[2023-11-19 13:30] VITALS: BP 94/64
--- NOTE | 2023-11-19 13:42 | PC.NURSE ---
DR RESTREPO AT BEDSIDE
--- NOTE | 2023-11-19 13:52 | PC.NURSE ---
IMAGES POWER SHARED WITH [facility]
--- NOTE | 2023-11-19 13:53 | ED_ITS ---
Discharge Plan Disposition Patient Disposition: Xfer Other Prescriptions Prescriptions: No Action levothyroxine [Euthyrox] 88 mcg tablet 88 mcg PO Patient Comments: TAKE 1 TABLET BY MOUTH ONCE DAILY Clenpiq 10 mg-3.5 gram- 12 gram/160 mL solution 160 ml PO DAILY Qty: 350 0RF Rx Instructions: take first dose at 5-9PM evening before colonoscopy; 2nd dose the next day approximately 5 hrs before colonoscopy Referrals Follow up/Referrals: eDjon Nova MD [Primary Care Provider] - See instructions Clinical Impressions Clinical Impression: Cerebellar mass, Vasogenic brain edema, Hydrocephalus, Nausea & vomiting, Ataxia Instructions Patient Instructions: DI for Diarrhea and Traveler's Diarrhea -- Adult, DI for Diarrhea and Traveler's Diarrhea -- Child, DI for Nausea -- Adult, DI for Nausea -- Child Discharge ED Provider: Reilly Nobles General Adult HPI General Chief complaint: Nausea/Vomiting/Diarrhea Stated complaint: vomiting when attempts to eat/drink, dizziness Time Seen by Provider: 11/19/23 13:36 Mode of Arrival: Ambulatory Source of Information: Patient Limitations: No Limitations Description of Symptoms (Recalled from ER Triage Doc. by RN): Patient reports vomiting and not being able to eat for 2-3 weeks. States she was seen here last week for dehydration and then reported to her PCP on Tuesday. Reports she was told that if her symptoms got worse to return to the ER for evaluation. History of Present Illness HPI narrative: Patient is a 58-year-old female presenting today with nausea vomiting and ataxia. She states this is been ongoing for the last several weeks. This began most recently after her last round of Keytruda. She has a known history of breast cancer that is been recurrent she recently had a double mastectomy and July of this year completed chemotherapy around June. Has been doing okay with the Keytruda in the past. Of note given her ataxia she had a MRI that was recently performed which showed a 3 cm posterior fossa mass with surrounding vasogenic edema and hydronephrosis. She had not been made aware of these findings yet. No known metastatic disease that she is aware. Related Data Home Medications Medication Instructions Recorded Confirmed levothyroxine 88 mcg tablet 88 mcg PO 10/21/21 02/07/23 (Euthyrox) Previous Rx's Medication Instructions Recorded sod picosulf 10 mg-magnes 3.5 160 ml PO DAILY 2 doses #350 mL 03/18/23 gram-citric 12 gram/160 mL oral solution (Clenpiq) Allergies Allergy/AdvReac Type Severity Reaction Status Date / Time Penicillins [PENICILLINS] Allergy Unknown Verified 02/07/23 13:28 [facility] Disclaimer: The information contained in this section may have been updated after the patient was seen, as this information can be updated by other users. Medical History (Updated 11/19/23 @ 13:52 by Reilly Nobles MD) Breast cancer Surgical History (Updated 02/07/23 @ 13:29 by BRETT Ash) History of lumpectomy of left breast Family History (Updated 02/07/23 @ 13:29 by BRETT Ash) Other No significant family history Social History (Updated 02/07/23 @ 13:29 by BRETT Ash) Smoking Status: Unknown if ever smoked alcohol intake: current alcohol intake frequency: holidays/special occasions only substance use type: denies use current occupational status: employed Travel in the last 8 weeks: None housing: house ROS Obtained: Yes All systems reviewed & no additional complaints except as documented Physical Exam General General appearance: alert and in no apparent distress Respiratory Respiratory exam: Present normal lung sounds bilaterally Cardiovascular Cardiovascular exam: Present regular rate and normal rhythm Neurological Exam Neurological exam: Present alert, oriented X3 and CN II-XII intact; Absent normal gait (Ataxia) Medical Decision Making Keenan Inquiry Pt receiving controlled substance: No Vital Signs: 11/19/23 12:44 11/19/23 13:00 11/19/23 13:30 Temperature 97.8 F Temperature Source Oral Pulse Rate 60 Pulse Rate [Radial] 86 Respiratory Rate 16 18 Blood Pressure 102/59 L 94/64 L Blood Pressure [Right Arm] 116/81 Blood Pressure Mean 74 75 Blood Pressure Mean [Right Arm] 92 Blood Pressure Source [Right Arm] Automatic Cuff Blood Pressure Position [Right Arm] Sitting 02 Sat by Pulse Oximetry 99 100 Oxygen Delivery Method Room Air 11/19/23 14:25 Temperature Temperature Source Pulse Rate 54 L Pulse Rate [Radial] Respiratory Rate 18 Blood Pressure 124/65 Blood Pressure [Right Arm] Blood Pressure Mean 84 Blood Pressure Mean [Right Arm] Blood Pressure Source [Right Arm] Blood Pressure Position [Right Arm] 02 Sat by Pulse Oximetry 98 Oxygen Delivery Method Lab Data Lab Results 11/19/23 12:28: WBC 5.8, RBC 4.50, Hgb 13.8, Hct 41.5, MCV 92.3, MCH 30.6, MCHC 33.2, RDW 15.7, Plt Count 225, MPV 8.7, Neut % (Auto) 71.7, Lymph % (Auto) 21.2, [place] % (Auto) 6.0, Eos % (Auto) 0.6, Baso % (Auto) 0.6, Neut # (Auto) 4.1, Lymph # (Auto) 1.2, [place] # (Auto) 0.3, Eos # (Auto) 0.0, Baso # (Auto) 0.0, Sodium 143, Potassium 3.6, Chloride 108 H, Carbon Dioxide 24, Anion Gap 14.6, BUN 17, Creatinine 0.90, Estimated Creat Clear 98, Estimated GFR 64, Est GFR ( Amer) 78, Glucose 117 H, Calcium 10.5 H, Phosphorus 3.3, Magnesium 1.7, Total Bilirubin 1.2, AST 33, ALT 38, Alkaline Phosphatase 145 H, Total Protein 7.8, Albumin 4.7, Globulin 3.1, Albumin/Globulin Ratio 1.5 11/19/23 12:28 11/19/23 12:28 Orders (Tests/Meds): ED MEDICATIONS Generic Name Dose Route Start Last Admin Trade Name Freq PRN Reason Stop Dose Admin Lactated Ringer's 1,000 mls @ 999 mls/hr 11/19/23 14:00 11/19/23 14:03 Lactated Ringer's 1000 Ml Bag IV 11/19/23 15:00 999 mls/hr .Q1H1M JESSICA Administration Discontinued Medications Generic Name Dose Route Start Last Admin Trade Name Freq PRN Reason Stop Dose Admin Dexamethasone Sodium Phosphate 10 mg 11/19/23 13:47 11/19/23 14:02 Dexamethasone 4mg/Ml 1ml Vial IV 11/19/23 13:48 10 mg ONCE ONE Administration Ondansetron HCl 4 mg 11/19/23 13:47 11/19/23 14:03 Ondansetron 4mg/2ml Vial IV 11/19/23 13:48 4 mg ONCE ONE Administration ORDERS Category Date Time Status CT head/brain wo con Stat Cat Scan 11/19/23 13:54 Ordered CBC w/Auto Diff [Complete Blood Count Auto Diff] Stat Lab 11/19/23 12:28 Completed CMP [Comprehensive Metabolic Panel] Stat Lab 11/19/23 12:28 Completed Lactate Venous Stat Lab 11/19/23 13:47 Ordered Magnesium Stat Lab 11/19/23 12:28 Completed Phosphorous Stat Lab 11/19/23 12:28 Completed UA [Urinalysis and Microscopic] Stat Lab 11/19/23 13:49 Ordered Venous Blood Gas Stat RT 11/19/23 13:50 Ordered Medical Decision Narrative: 58-year-old female presented with nausea vomiting ataxia has a history of breast cancer had a recent MRI that shows a 3 x 3 cm posterior fossa mass with surrounding vasogenic edema and hydrocephalus likely the cause of all her symptoms. It is very likely that this is metastatic disease although radiology read this as possible meningioma. She will need to be seen by neurosurgery given her symptoms. I will give her dexamethasone for the vasogenic edema and Zofran for her nausea and vomiting as well as IV fluids. I will also get a noncontrasted CT scan to make sure there is no significant worsening of her hydrocephalus etc. Images will be power shared with [facility] neurosurgery will discuss the case with them and reassess. Patient has been made aware that she is very sad and tearful after finding out that she has a mass causing her symptoms. I spoke with Dr. Gray and Dr. Oneill at [facility] who accepted the patient to [facility] for further evaluation and management. Patient is aware of this and remained stable. Critical Care Critical Care Time Critical Care Time: Yes Attestation: On 11/19/23, the high probability of a clinically significant, sudden or life threatening deterioration of the following system(s) required my full and direct attention, intervention and personal management. The time I documented below is in addition to time spent performing reported procedures but includes the following listed in this critical care notation. Total Time Total Critical Care Time: 35
[2023-11-19 13:56] LABS: Chloride 108 mmol/L (98-107)
--- NOTE | 2023-11-19 13:56 | PC.NURSE ---
[facility] CONSULTED AT THIS TIME
[2023-11-19 13:57] LABS: Potassium 3.6 mmoL/L (3.5-5.1); Sodium 143 mmol/L (136-145)
[2023-11-19 13:59] LABS: Alanine Aminotransferase 38 U/L (12-78); Alkaline Phosphatase 145 U/L (38-126); Anion Gap 14.6 mEq/L (5-15); Aspartate Amino Transferase 33 U/L (14-36); Bilirubin,Total 1.2 mg/dl (0.2-1.3); Blood Urea Nitrogen 17 mg/dl (7-17); Carbon Dioxide 24 mmol/L (22.0-30.0); Creatinine Clearance Estimated 98 mL/min (50-200); Estimated Glomerular Filt Rate 64 ml/min (>60); GFR (African American) 78 ML/MIN (>60)
[2023-11-19 14:00] LABS: Albumin Level 4.7 g/dl (3.5-5.0); Albumin/Globulin Ratio 1.5 (1.1-1.8); Calcium 10.5 mg/dl (8.4-10.2); Globulin 3.1 g/dL (1.3-3.2); Glucose 117 mg/dl (74-100); Magnesium 1.7 mg/dl (1.6-2.3); Phosphorous 3.3 mg/dl (2.5-4.5); Total Protein,Serum 7.8 g/dl (6.3-8.2)
[2023-11-19 14:01] LABS: Basophils % 0.6 % (0.1-2.0); Eosinophils % 0.6 % (0.1-12.0); Hematocrit 41.5 % (37.0-47.0); Hemoglobin 13.8 g/dL (12.2-16.2); Lymphocytes # 1.2 K/mm3 (0.7-4.5); Lymphocytes % 21.2 % (10-50); Mean Corpuscular HGB Conc 33.2 g/dL (31.8-35.4); Mean Corpuscular Hemoglobin 30.6 pg (27.0-31.2); Mean Corpuscular Volume 92.3 fl (81-99); Mean Platelet Volume 8.7 fl (7.4-10.4); Monocytes # 0.3 K/mm3 (0.1-1.0); Neutrophils # 4.1 K/mm3 (1.8-7.8); Neutrophils % 71.7 % (37.0-80.0); Platelet Count 225 K/mm3 (142-424); Red Cell Distribution Width 15.7 % (11.5-17.5); White Blood Count 5.8 K/mm3 (4.8-10.8)
[2023-11-19] MEDS: DEXAMETHASONE 4MG/ML 1ML VIAL 10 MG IV (14:02)
[2023-11-19] MEDS: ONDANSETRON 4MG/2ML VIAL 4 MG IV (14:03)
[2023-11-19] MEDS: LACTATED RINGERS 1000ML 1,000 ML 999 ML IV (14:03)
[2023-11-19 14:25] VITALS: BP 124/65; PULSE 54; RESP 18; O2SAT 98
--- NOTE | 2023-11-19 14:27 | PC.NURSE ---
[facility] MD Oneill accepted pt
--- NOTE | 2023-11-19 14:49 | PC.NURSE ---
Report called to Beryl @ [facility] ED
[2023-11-19] MEDS: SODIUM CHLORIDE 0.9% 25ML BAG 25 ML IV (15:04)
[2023-11-19] MEDS: PROMETHAZINE HCL 25MG/ML 1ML VIAL 12.5 MG IV (15:04)
--- NOTE | 2023-11-19 15:05 | PC.NURSE ---
[facility] notified of transfer to [facility]
[2023-11-19 15:52] VITALS: BP 124/65; PULSE 54; RESP 18; TEMP 36.7; O2SAT 98
== END 2023-11-19 15:53 | disposition other institution (70) ==
PROVIDERS: Emergency Provider Student in an Organized Health Care Education/Training Program; PCP Internal Medicine Adolescent Medicine
DX: G93.6 Cerebral edema (principal); G91.9 Hydrocephalus, unspecified; R11.2 Nausea with vomiting, unspecified; R27.0 Ataxia, unspecified; Z85.3 Personal history of malignant neoplasm of breast; D49.6 Neoplasm of unspecified behavior of brain; Z92.21 Personal history of antineoplastic chemotherapy
CPT/HCPCS: 80053; 83735; 84100; 85025; 96361; 96374; 96375; 99285; J1100; J2405; J2550; J7120

== ENCOUNTER 2024-01-11 10:01 | Outpatient (CLI) | payer BC, SELFPAY ==
--- NOTE | 2024-01-11 10:06 | XR_ITS ---
FINAL REPORT CLINICAL HISTORY: .right hip pain COMPARISON: None FINDINGS: SACROILIAC JOINTS AP and oblique views of the sacrum and iliac wings were obtained. There is no prior exam for comparison. There is no acute fracture or other acute osseous abnormality. The SI joints are symmetric bilaterally, with mild degenerative change. No acute soft tissue abnormality is present. IMPRESSION: Mild degenerative change of the sacroiliac joints. No acute bony abnormality. Reviewed, Interpreted and Dictated by Satnam White III, MD Transcribed by Barbara Fields Authenticated and [facility]
--- NOTE | 2024-01-11 10:06 | XR_ITS ---
FINAL REPORT CLINICAL HISTORY: PAIN RT LEG, SACROILIAC JOINT COMPARISON: None FINDINGS: 5 views of the lumbar spine were obtained. There is no evidence of fracture or dislocation. Mild degenerative change is present. There is a mild leftward curvature of the lumbar spine. No paraspinous soft tissue abnormalities identified. IMPRESSION: Mild degenerative change with a mild leftward curvature of the lumbar spine. Reviewed, Interpreted and Dictated by Satnam White III, MD Transcribed by Barbara Fields Authenticated and [facility]
--- NOTE | 2024-01-11 10:06 | XR_ITS ---
FINAL REPORT CLINICAL HISTORY: .jannie hip pain COMPARISON: None FINDINGS: LEFT HIP: Two views of the left hip demonstrate no acute fracture or dislocation. The joint spaces appear normal. The visualized bony structures are well aligned. No soft tissue abnormality is seen. IMPRESSION: No acute bony abnormality. Reviewed, Interpreted and Dictated by Satnam White III, MD Transcribed by Barbara Fields Authenticated and [facility]
--- NOTE | 2024-01-11 10:06 | XR_ITS ---
FINAL REPORT CLINICAL HISTORY: .jannie hip pain COMPARISON: None FINDINGS: RIGHT HIP Two views of the right hip demonstrate no acute fracture or dislocation. Mild degenerative change of the right hip is present. The visualized bony structures are well aligned. No soft tissue abnormality is seen. IMPRESSION: Mild degenerative change with no acute bony abnormality. Reviewed, Interpreted and Dictated by Satnam White III, MD Transcribed by Barbara Fields Authenticated and [facility]
== END 2024-01-11 23:59 | disposition home or self-care (01) ==
LOC: RAD 10:02
PROVIDERS: PCP Internal Medicine Adolescent Medicine; Visit Provider Internal Medicine Adolescent Medicine
DX: M53.3 Sacrococcygeal disorders, not elsewhere classified (principal); M54.9 Dorsalgia, unspecified; M79.604 Pain in right leg
CPT/HCPCS: 72110; 72202; 73502

== ENCOUNTER 2025-04-14 00:09 | Emergency (ER) | payer OTHER, SELFPAY ==
--- OUTSIDE RECORDS SUMMARY | 2025-02-19 12:30 | XMS_ITS | Encounter Summary ---
Author Organization Healthcare Address [address] [place] [id number] Care Team Providers Care Track Supervisor Name Role Phone Dejon Nova MD Primary Care Provider + [phone] Encounter Details Date Type Department Care Team (Late st Contact Info) Description 02/19/2025 1:30 PM EDT Office Visit [facility] [address] [place] [address] Rin Sherwood, TIRE INSTALLER [address] [facility] [address] [place] [address] Malignant neoplasm of overlapping sites of left breast in female, estrogen receptor negative (Primary Dx) Social History Tobacco Use Types Packs/Day Years Used Date Smoking Tobacco: Never Passive Smoke Exposure: Never Smokeless Tobacco: Never Tobacco Cessation:Counseling Given: Not Answered Alcohol Use Standard Drinks/Week Comments Not Currently 0 (1 standard drink = 0.6 oz pur e alcohol) social drinker PHQ-2 Answer Date Recorded Patient Health Questionnaire-2 Score 0 08/21/2024 PHQ-9 Answer Date Recorded Patient Health Questionnaire-9 Score 3 12/08/2023 CAGE ASSESSMENT Answer Date Recorded Cage unable to access Not on file 11/19/2023 Maximum number of drinks you had on a given occasion in the last month? 0 drinks 11/19/2023 How many alcoholic Beverages do you typically drink in a week? 0 - 7 per week 11/19/2023 Have you ever felt you should CUT down on your d rinking? 0 11/19/2023 Have you been ANNOYED by peo ple criticizing your drinking? 0 11/19/2023 Have you felt GUILTY about your drinking? 0 11/19/2023 Have you had a drink first t diego in the morning ([employer]) to steady your nerves or to get rid of a hangover? 0 11/19/2023 CAGE Questionnaire Score 0 024 Comments No Sex and Gender Information Value Date Recorded Sex Assigned at Not on file Legal Sex Female 6:18 PM EDT Gender Identity Not on file Sexual Orientation Not on file documented as of this encounter Last Filed Vital Signs Vital Sign Reading Time Taken Comments Blood Pressure 119/84 02/19/2025 1:24 PM EDT Pulse 60 02/19/2025 1:24 PM EDT Temperature - - Respiratory Rate 17 02/19/2025 1:24 PM EDT Oxygen Saturation 99% 02/19/2025 1:24 PM EDT Inhaled Oxygen Concentration - - Weight 89.8 kg (197 lb 15.6 oz) 02/19/2025 1:24 PM EDT Height 175.3 cm (5' 9 ) 02/19/2025 1:24 PM EDT Body Mass Index 29.24 02/19/2025 1:24 PM EDT documented in this encounter Miscellaneous Notes * Progress Notes - Rin Sherwood, TIRE INSTALLER - 02/19/2025 1:30 PM EDT [facility] Return Patient Visit HPI: PMH of left breast invasive ductal carcinoma s/p left breast lumpectomy and sentinel lymph node biopsy in 05/2022 with neoadjuvant chemotherapy, adjuvant L radiation therapy, and adjuvant chemotherapy; recurrent left breast invasive ductal carcinoma s/p bilateral skin sparing mastectomy with left sentinel lymph node biopsy (0/[address]) in 07/2023, adjuvant L XRT, hypothyroidism, vitamin Ddeficiency. August 2023 she developed nausea, vomiting imbalance and dizziness in October prompting head MRI revealing brain metastasis. She had brain surgery for removal of a posterior fossa brain mass consistent with metastasis 11/2023, then gamma knife treatment 12/2023. She had a PET that revealed hypermetabolic liver and cervical lymph nodes prompting her medical oncologist, Dr. Baldwin, to start her on Trodelvy with plans to continue indefinitely. In 04/2024, a head MRI revealed expected evolution of surgical changes after right suboccipital craniotomy for resection of right cerebellar metastasis, with ill defined enhancement at the surgical bed, without nodular enhancement to suggest recur rence. No other significant change. Current visit (02/19/2025): She denies any breast specific complaints, including skin change or palpable masses in breast or lymph node basins. She denies any new headaches, bone pain, or abdominal pain/bloating. Patient notes having a PET scan on 02/04/2025 at [facility] with extensive metastatic disease. Pending images from OSH. Patient planning to start Adriamycin and Cytoxan in 03/[address] Baldwin and discuss clinical trails PAST MEDICAL HISTORY: Past Medical History[1] PAST SURGICAL HISTORY: Surgical History[2] ALLERGIES: Allergies[3] CURRENT MEDICATIONS: Medications Ordered Prior to Encounter[4] FAMILY HISTORY: No change. PHYSICAL EXAMINATION: VITAL SIGNS: Visit Vitals BP 119/84 (BP Location: Left arm, Patient Position: Sitting, BP Cuff Size: Large adult) Pulse 60 Resp 17 GENERAL: No acute distress. LUNGS: Normal work of breathing HEART: Regular Rate Rhythm BREAST: LEFT: S/p mastectomy. No skin changes or palpable abnormality RIGHT: S/p mastectomy. No skin changes or palpable abnormality LYMPHATIC: Palpable bilateral cervical and supraclavicular lymph nodes. EXTREMITIES: Without cyanosis, clubbing or edema. Normal range of motion NEUROLOGIC: Alert and oriented x 3. Motor is normal and gait is normal. Normal mood and normal affect IMAGING: No imaging to review ASSESSMENT: Cancer Staging Malignant neoplasm of overlapping sites of left breast in female, estrogen receptor negative Staging form: Breast, AJCC 8th Edition - Clinical stage from 11/24/2021: Stage IIB - Signed by Kori Alford on 11/24/2021 cT2 cN0 cM0 [place] grade: G3 ER Status: Negative ND Status: Negative HER2 Status: Negative - Pathologic stage from 05/28/2022: Signed by Kori Alford on 06/15/2022 pT1b pN0 cM0 [place] grade: G3 ER Status: Negative ND Status: Negative HER2 Status: Negative - Clinical stage from 02/07/2023: Stage IIB - Signed by Ofe Garcia MD on 05/17/2023 cT2 cN0 cM0 [place] grade: G3 ER Status: Negative ND Status: Negative HER2 Status: Negative - Pathologic stage from 08/16/2023: Stage IIA - Unsigned pT2 pN0 cM0 [place] grade: G3 ER Status: Negative ND Status: Negative HER2 Status: Negative Danita Conn is a 59yF with metastatic triple negative breast cancer s/p bilateral mastectomy. She has undergone resection of a brain metastasis with extensive metastatic disease. Patient planning torechallenge AC in 03/2025. PLAN: - F/U with Dr. Baldwin - [facility] in 1 year for clinical exam 30 minutes was spent on this encounter; including preparing to see the patient, which involved review/interpretation of diagnostics and reports; obtaining and/or reviewing separately obtained history; performing appropriate physical exam; ordering/scheduling medications, tests or procedures; communicating findings and counseling/educating the patient, family and/or caregiver; documentation in EMR; and care coordination. [1] Past Medical History: Diagnosis Date Brain cancer ([facility]/HCC) Breast cancer 11/10/2021 left breast Dental disease chipped front left tooth Diabetes mellitus ([facility]/HCC) Disease of thyroid gland 02/28/2005 Hx antineoplastic chemo Hypothyroidism Personal history of irradiation 08/07/22 Vitamin D deficiency [2] Past Surgical History: Procedure [place] Date BRAIN SURGERY 11/22/2023 BREAST BIOPSY Left 10/30/2021 malignant BREAST LUMPECTOMY Left 05/20/2022 CHOLECYSTECTOMY PORTACATH PLACEMENT [3] Allergies Allergen Reactions Penicillins Unknown - Patient states they do not know rxn details [4] Current Outpatient Medications on File Prior to Visit Medication Sig Dispense Refill Continuous Glucose Sensor (FreeStyle Christen 3 Sensor) [facility] USE AND REPLACE EVERY 15 DAYS Insulin Aspart FlexPen 100 UNIT/ML solution pen-injector INJECT 10 UNITS SUBCUTANEOUSLY WITH MEALS levothyroxine (Synthroid, Levoxyl) 125 MCG tablet Take 1 tablet (125 mcg) by mouth 1 (one) time each day. magnesium oxide (Mag-Ox) 400 (240 Mg) MG tablet Take 1 tablet (400 mg) by mouth 1 (one) time each day. (Patient not taking: Reported on 11/01/2024) ondansetron (Zofran) 8 MG tablet Take 1 tablet (8 mg) by mouth 2 (two) times a day if needed. (Patient not taking: Reported on 01/17/2025) promethazine (Phenergan) 12.5 MG tablet Take 1 tablet (12.5 mg) by mouth every 8 (eight) hours if needed. (Patient not taking: Reported on 01/17/2025) promethazine-dextromethorphan (Phenergan-DM) 6.25-15 MG/5ML syrup TAKE 5 ML BY MOUTH EVERY 6 HOURS (Patient not taking: Reported on 01/17/2025) Vitamin D3 1.25 MG (79246 UT) capsule Take 1 capsule (50,000 Units) by mouth 1 (one) time per week.Takes on Saturdays No current facility-administered medications on file prior to visit. documented in this encounter Plan of Treatment Upcoming Encounters Date Type Department Care Team (Late st Contact Info) Description 05/30/2025 8:00 AM EST Appointment [facility] Radiology [address] [place] [address] 05/30/2025 9:30 AM EST [facility] [address] [place] [address] Lebron Lopez MD [address] [facility] [address] [place] [address] 02/12/2026 11:00 AM EDT Office Visit [facility] [address] [place] [address] Rin Sherwood APRN [address] [facility] [address] [place] [address] documented as of this encounter Visit Diagnoses Diagnosis Malignant neoplasm of overlapping sites of left breast in female, estrogen receptor negative- Primary documented in this encounter Additional Health Concerns Assessment Noted Time PHQ-9 Depression Total Score: 3 12/08/19 24 10:00 AM EDT A fall risk assessment has been complete d for the patient 02/19/2025 1:23 PM EDT A Body Mass Index follow-up plan has been documented for the patient 01/17/2025 12:44 PM EDT documented as of this encounter Care Teams Track Supervisor Relationship Specialty Start Date End Date Dejon Nova MD [address] [place] [address] PCP - General Internal Medicine 11/11/21 documented as of this encounter
--- OUTSIDE RECORDS SUMMARY | 2025-02-21 09:14 | XMS_ITS | Continuity of Care Document ---
Author Organization [facility] Phone Care Team Providers Care Deicer Inspector Pneumatic Name Role Phone GENESIS VORA Unavailable CARMEL KHANNA Surgeon Unavailable GENESIS VORA Primary Attending RENEE CERDA Primary Care GENESIS VORA Admitting ALLERGIES AND ADVERSE REACTIONS ALLERGIES AND ADVERSE REACTIONS Code System Allergy Substance Adverse Reaction Date Reaction (Severity) Comment Status Reported By Updated By [id number] RXNorm PENICILLIN Adverse reaction to substance Not Specified active [id number] on February 02, 2024 1:09:37 PM UT ASSESSMENTS Lesion of liver ; FAMILY HISTORY RELATION: Father Status: Cause of : Unknown Age at : Unknown SNOMED-CT Diagnosis Age At Onset [id number] Malignant tumor of lung RELATION: Mother Status: Cause of : Unknown Age at : Unknown SNOMED-CT Diagnosis Age At Onset [id number] Diabetes mellitus PROBLEMS PATIENT PROBLEMS Code Description/Comments Category Status Upda melanie By [id number] Lesion of liver active [id number] o n February 13, 2025 12:31:25 PM UT RESULTS Patient: JAYSON CLEVELAND Date of : 1965 3 LABORATORY RESULTS ORDER 200: CBC NO DIFF HEMOG GERARD (LOINC: 19973-3) ORDER DATE: February 13, 2025 11:52:00 AM UTC Specimen Source: EDTA Specimen Type: Blood specime n with EDTA PERFORMING LAB: [address] [id number] Result Comment: Final Result Date: February 13, 2025 11:58:00 AM UT (TECH: TH) LOINC TEST FLAG RESULT REFERENCE RANGE UPDA MELANIE BY 6690-2 Leukocytes [#/volume] in Blood by Automated count N 5.5 K/ul 4.0 K/ul - 10.5 K/ul February 13, 2025 11:58:00 AM UTC (TECH: TH) 789-8 Erythrocytes [#/volume] in Blood by Automated count L 4.0 M/mm3 4.2 M/mm3 - 6.4 M/mm3 February 13, 2025 11:58:00 AM UTC (TECH: TH) 718-7 Hemoglobin [Mass/volume] in Blood L 11.7 gm/dl 12.5 gm/dl - 16.0 gm/dl February 13, 2025 11:58:00 AM UTC (TECH: TH) 53860-0 Hematocrit [Volume Fraction] of Blood N 37.2 % 37.0 % - 47.0 % February 13, 2025 11:58:00 AM UTC (TECH: TH) 787-2 Erythrocyte mean corpuscular volume [Entitic volume] by Automated count N 93.9 fl 78 fl - 100 fl February 13, 2025 11:58:00 AM UTC (TECH: TH) 785-6 Erythrocyte mean corpuscular hemoglobin [Entitic mass] by Automated count N 29.5 pg 27 pg - 31 pg February 13, 2025 11:58:00 AM UTC (TECH: TH) 786-4 Erythrocyte mean corpuscular hemoglobin concentration [Mass/volume] by Automated count L 31.5 g/dl 32 g/dl - 36 g/dl February 13, 2025 11:58:00 AM UTC (TECH: TH) 76324-4 Erythrocyte distribution width [Ratio] H 16.7 % 11.5 % - 14.0 % February 13, 2025 11:58:00 AM UTC (TECH: TH) 287-3 Platelets [#/volume] in Blood by Automated count N 390 K/ul 150 K/ul - 450 K/ul February 13, 2025 11:58:00 AM UTC (TECH: TH) 71024-4 Platelet mean volume [Entitic volume] in Blood by Automated count H 10.6 fl 6 fl - 9.5 fl February 13, 2025 11:58:00 AM UTC (TECH: TH) 38031-4 Manual Differential panel - Blood N NO February 13, 2025 11:58:00 AM UTC (TECH: TH) ORDER 300: PT PROTHROMBIN TI ME W INR (LOINC: 80493-0) ORDER DATE: February 13, 2025 11:52:00 AM UTC Specimen Source: PLASMA Specimen Type: Plasma specim en PERFORMING LAB: [address] [id number] Result Comment: Final Result Date: February 13, 2025 12:17:00 PM UTC (TECH: TH) LOINC TEST FLAG [place] [address]-9 INR in Platelet poor plasma or blood by Coagulation assay N 10.2 SECONDS 9.3 SECONDS - 11.4 SECONDS February 13, 2025 12:17:00 PM UTC (TECH: TH) 6301-6 INR in Platelet poor plasma by Coagulation assay N 1.0 Ratio 0.97 Ratio - 1.05 Ratio February 13, 2025 12:17:00 PM UTC (TECH: TH) ORDER 400: PTT PARTIAL THROM B TIME (LOINC: 3173-2) ORDER DATE: February 13, 2025 11:52:00 AM UTC Specimen Source: PLASMA Specimen Type: Plasma specim en PERFORMING LAB: [address] [id number] Result Comment: Final Result Date: February 13, 2025 12:17:00 PM UTC (TECH: TH) LOINC TEST FLAG RESULT REFERENCE RANGE UPDA MELANIE BY 3173-2 Activated partial thromboplastin time (aPTT) in Blood by Coagulation assay H 36.1 SECONDS 24.5 SECONDS - 32.8 SECONDS February 13, 2025 12:17:00 PM UTC (TECH: TH) ORDER 500: BASIC METABOLIC P WILD (LOINC: 36284-6) ORDER DATE: February 13, 2025 12:11:00 PM UTC Specimen Source: PLASMA Specimen Type: Plasma specim en PERFORMING LAB: [address] [id number] Result Comment: Final Result Date: February 13, 2025 1:20:00 PM UTC (TECH: ARR) LOINC TEST FLAG RESULT REFERENCE RANGE UPDA MELANIE BY 2951-2 Sodium [Moles/volume ] in Serum or Plasma N 139 mmol/L 136 mmol/L - 145 mmol/L February 13, 2025 1:20:00 PM UTC (TECH: ARR) 2823-3 Potassium [Moles/volume] in Serum or Plasma N 4.1 mmol/L 3.6 mmol/L - 5.0 mmol/L February 13, 2025 1:20:00 PM UTC (TECH: ARR) 5-0 Chloride [Moles/volu me] in Serum or Plasma N 102 mmol/L 98 mmol/L - 107 mmol/L February 13, 2025 1:20:00 PM UTC (TECH: ARR) 2028-01 Carbon dioxide, tota l [Moles/volume] in Serum or Plasma N 27.0 mmol/L 21.0 mmol/L - 32.0 mmol/L February 13, 2025 1:20:00 PM UTC (TECH: ARR) 51197-4 Anion gap in Blood N 14.1 O ct2024 1:20:00 PM UTC (TECH: ARR) 2345-7 Glucose [Mass/volume ] in Serum or Plasma N 110 mg/dl 70 mg/dl - 120 mg/dl February 13, 2025 1:20:00 PM UTC (TECH: ARR) 6299-2 Urea nitrogen [Mass/volume] in Blood N 15 mg/dL 7 mg/dL - 18 mg/dL Octobe r 2024 1:20:00 PM UTC (TECH: ARR) 77911-2 Creatinine [Moles/volume] in Blood N 0.9 mg/dL 0.6 mg/dL - 1.3 mg/dL February 13, 2025 1:20:00 PM UTC (TECH: ARR) 86338-9 Glomerular filtratio n rate/1.73 sq M.predicted by Creatinine-based formula (MDRD) N 74 mlpermin 60 mlpermin February 13, 2025 1:20:00 PM UTC (TECH: ARR) 38775-3 Osmolality of Serum or Plasma by calculated by sum of electrolytes N 291 mosm/kg 275 mosm/kg - 301 mosm/kg February 13, 2025 1:20:00 PM UTC (TECH: ARR) 67260-7 Calcium [Mass/volume ] in Serum or Plasma N 9.4 mg/dl 8.5 mg/dl - 10.5 mg/dl February 13, 2025 1:20:00 PM UTC (TECH: ARR) LABORATORY NARRATIVE RESULTS Information is not available RADIOLOGY RESULTS ORDER 100: CT BX OF LIVER-NE SAMMI (LOINC: 63906-4) ORDER DATE: February 13, 2025 11:27:00 AM [facility] PERFORMING LAB: [address] [id number] Final Result Date: February 5:50:06 PM [facility] [address] [place] [id number] Name: CRISTOFER TYLER Exam Date: 02/13/2025 : 1965 Age 59 years Gender: F Physician: GENESIS VORA Facility: [facility] Facility HSV: Outpatient Exam: CT BX OF LIVER-NEEDLE PROCEDURE: CT Guided biopsy of a liver lesion. Performed by: ANMOL Madden APRN. Direct Supervision by: Dr. Garett Harper MD. CLINICAL HISTORY: Hx of metastatic breast cancer. PET scan 02/04/2025-extensive metastatic disease. Oncologist needs biopsy information to guide treatment course. CONSENT: Time-Out Called: Yes Consent form signed: YES SEDATION: The patient was not given any sedation per her request. Constant nursing supervision was provided throughout the procedure. Total sedation time was: 0 minutes. DOSE: All CT scans are performed using radiation dose reduction techniques, when applicable. Technical factors are evaluated and adjusted to ensure appropriate moderation of exposure. Automated dose management technology is applied to just the radiation doses to minimize exposure while achieving diagnostic quality images. TECHNIQUE/FINDINGS: After the approach was planned using preliminary CT guidance, the area was prepped and draped in sterile fashion. The skin and subcutaneous tissues were anesthetized using a mix of 1% lidocaine and sodium bicarbonate. The outer needle was inserted under CT guidance to the mass within the liver. The 18 gauge coaxial biopsy needle with 2 cm throw was inserted through the sheath and 4 separate core samples were obtained and placed in formalin. These were sent to the pathology lab for analysis. Surgifoam was placed in the biopsy site. Hemostasis obtained. Sterile dressing applied to the site. The patient tolerated the procedure well, with no significant blood loss. Post procedure images are negative for hematoma. They were returned to the holding area in satisfactory condition. Exposure time: 00:00:04.0 Total Exam DLP: 596.02 mGy-cm IMPRESSION: Successful CT-guided liver lesion biopsy. Pathology pending. Electronically signed by: Garett Harper MD 02/13/2025 01:50 PM EDT RP Dictated By: GARETT HARPER Transcribed By: Transcribed On: 02/13/2025 1:50 PM Electronically signed by: GARETT HARPER 02/13/2025 Thank you for referring JAYSON CRISTOFER to [facility]. Legally authenticated by SENIA HAWLEY 2025-02-13 13:50:06 PATHOLOGY NARRATIVE RESULTS ORDER 1000: PATHOLOGY SPECIM EN (LOINC: 30630-9) ORDER DATE: February 13, 2025 1:52:00 PM [facility] Specimen Source: PATH Specimen Type: Refer to path ology laboratory PERFORMING LAB: [address] [id number] Final Result Date: February 062024 7:41:00 AM UT (TECH: AY) TEST: PATHOLOGY SPECIMEN SEE REPORT MICROBIOLOGY RESULTS No Micro Labs/Results Exist for Patient BLOOD ADMIN RESULTS Information is not available MEDICATIONS HOME MEDICATIONS Status RXNORM NDC Medication Dose Route Frequency Dates Comments Reported By Updated By Active [id number] 36148 levothyroxin e (SYNTHROID) 125.0 MCG ORAL ACB Last Dose: [id number] on February 13, 2025 2:06:46 PM [facility] DISCHARGE MEDICATIONS Status RXNORM NDC Medication Dose Route Frequency Dates Dis pense Data Comments Physician Updated By No Discharge Medication Info rmation Available INPATIENT MEDICATIONS Status RXNORM NDC Medication Dose Route Frequency Rat e Quantity Dates Indication Dispense Data Comments Physician Updated By [facility] [phone] fentaNYL (SUBLIMAZE) 50 MCG/ML SOSY 50.0 MCG INTRAV ENOUS ONE TIME ONLY (SCHEDULED DOSE) Start: Octobe r 2024 12:15: 00 PM [facility] End: Octobe r 2024 12:15: 00 PM UTC [facility] on February 13, 2025 12:13:00 PM UTC Discont inued [id number] 9419 9230 504 midazolam (VERSED) 5 MG/5 ML SOLN 5.0 MG INTRAV ENOUS ONE TIME ONLY (SCHEDULED DOSE) Start: Octobe r 2024 12:15: 00 PM UTC End: Octobe r 2024 12:15: 00 [facility] February 13, 2025 12:13:00 PM UTC Discont inued 9252417 5134 3048 527 lidocaine (XYLOCAINE) 1% SOLN 20.0 ML ONE TIME ONLY (SCHEDULED DOSE) Start: Octobe r 2024 12:15: 00 PM UT End: Octobe r 2024 12:15: 00 [facility] February 13, 2025 12:13:00 PM UTC Discont inued 9559591 8484 9663 714 sodium bicarbonate 8.4 % VIAL SOLN 50.0 MEQ INTRAV ENOUS ONE TIME ONLY (SCHEDULED DOSE) Start: Octobe r 2024 12:15: 00 PM UTC End: Octobe r 2024 12:15: 00 PM UTC [facility] on February 13, 2025 12:14:00 PM UTC Discont inued 0339014 5203 9230 504 midazolam (VERSED) 5 MG/5 ML SOLN 1.0 MG INTRAV ENOUS EVERY FIVE MINUTES NEEDED Start: Octobe 2024 12:31: 00 PM UTC End: Octobe r 2024 7:22:0 0 PM UT CLEMENCIA CARMEL K [id number] on February 14, 2025 4:25:00 AM UTC Discont inued 0693029 0064 1624 725 fentaNYL (SUBLIMAZE) 50 MGC/ML SOLN 25.0 MCG INTRAV ENOUS EVERY FIVE MINUTES NEEDED Start: Octobe r 2024 12:31: 00 PM UTC End: Octobe r 2024 7:22:0 0 PM UTC CLEMENCIA CARMEL K [id number] on February 14, 2025 4:25:00 AM UT SOCIAL HISTORY SOCIAL HISTORY - Smoking Status SNOMED-CT Social History Element Description Effective Dates Offered Cessation Comment Updated By [id number] Historical Tobacco smoking status Never Smoked [id number] on March 22, 2023 6:35:20 PM UTC SOCIAL HISTORY - Gender Sex: Female SOCIAL HISTORY - Status : status i nformation is not available Intention in Next Year: intention information is not available SOCIAL HISTORY - Assessments Code System Description Status Date Value of Assessment Updated By Comment Assessment Information is no t available SOCIAL HISTORY - [place] Affiliation [place] information is not av ailable SOCIAL HISTORY - Legal Sex Legal Sex information is not available SOCIAL HISTORY - Sexual Behavior Sexual Orientation Gender Identity SNOMED-CT Description SNO MED -CT Description Activity Level No of Partners Partner Type UpdatedBy Information is not available SOCIAL HISTORY - Occupation Occupation information is no t available VITAL SIGNS PATIENT VITAL SIGNS This section displays the mo st recent value for each vital sign as of February 21, 2025 2:14:02 PM UT Loinc Code Vital Sign Activity Date Result Updated By 8867-4 Heart rate February 13, 2025 3:05:00 PM UTC 80 /min 8462-4 Diastolic blood pressure February 13, 2025 3:05:00 PM UTC 75.0 mm[Hg] 25620-1 Oxygen saturation in Arterial blood by Pulse oximetry February 13, 2025 3:05:00 PM UTC 98.0 % 9279-1 Respiratory rate February 13, 2025 3:05:00 PM UTC 18 /min 8480-6 Systolic blood pressure February 13, 2025 3:05:00 PM UTC 110.0 mm[Hg] PEDIATRIC GROWTH CHART - VITAL SIGNS This section displays Head C ircumference Percentile, Weight for Length Percentile and BMI Percentile Loinc Code Pediatric Measure Age (Months) Result Updat ed By No Pediatric Growth Chart Pe rcentile Information Available. PROCEDURES PATIENT PROCEDURES CODE SYSTEM DESCRIPTION STATUS PERFORMED DATE UPD ATED BY [id number] SNOMED-CT CT guided percutaneous needle biopsy of liver completed February 13, 2025 4:00:00 AM UTC [id number] on February 13, 2025 1:34:54 PM UTC PROCEDURE NOTE Note Title Operative/Procedure Note Date Of Service February 13, 2025 1:37 :40 PM UTC Created By [id number] on February 1:37:40 PM UTC Signed By [id number] on February 3:45:42 PM UTC Pre-Procedure Diagnosis Lesion of liver Post- Procedure Diagnosis Lesion of liver Procedure / Surgery Performed CT guided percutaneous needle biopsy of liver Performed by CLEMENCIA KAUFFMAN Anesthesia Type Local anesthesia Estimated Blood Loss Minimal. Complications None Present at Time of Surgery Dr. Garett Harper MD, Margaret RN, [facility]. Indication Diagnostic purposes. Procedure Description / Findings Successful CT guided liver lesion biopsy using sterile technique. Using an 18 gauge coaxial needle, the lesion was accessed and obtained 4 core specimens. Gel foam dressing was inserted into the liver lesion. Hemostasis was obtained. Sterile dressing applied to the site. Patient tolerated procedure well. Informed written consent was obtained prior to procedure including discussion of risks/benefits/alternatives and answered all of patient's questions. See radiology report for full details. Specimens 4- 18 gauge core specimens obtained and sent to pathology for analysis. Tubes/Drains None Implants None Disposition of Patient Home in stable condition. Electronically signed by CLEMENCIA KAUFFMAN on 0942 I hereby attest the note that was written on this patient accurately reflects the notations made when patient was examined. Electronically signed by CRISTIAN MULLER on 1145 HEALTH CONCERNS Problems Concern Status Health Concern problem infor mation not available. Smoking Status Status Years Used Consumed packs p er day Health Concern smoking histo ry information not available. Family History Concern Status Health Concern family histor y information not available. MEDICAL EQUIPMENT MEDICAL EQUIPMENT Device Status Quantity Dates Procedure Comments Updated By [id number] DICKSON: Assigning Authority: FDA ACTIVE 1 Implanted: March 23, 2023 [id number] on March 23, 2023 6:39:37 PM [facility] ENCOUNTERS ENCOUNTER INFORMATION Reason for Visit LIVER MASS Admission February 13, 2025 11:22:00 AM [facility] [address] [facility] [id number] Discharge February 13, 2025 7:22:00 PM [facility] D ISCHARGED TO HOME OR SELF CARE ENCOUNTER DIAGNOSES Notes information is not gonzalo ilable. Code System Diagnosis Onset Date Diagnosis information is not available. 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 [id number] on February 21, 2025 2:13:07 PM UTC D49.9 ICD10 NEOPLASM OF UNSP ECIFIED BEHAVIOR OF UNSPECIFIED SITE [id number] on February 21, 2025 2:13:07 PM UTC D70.1 ICD10 AGRANULOCYTOSIS SECONDARY TO CANCER CHEMOTHERAPY [id number] on February 21, 2025 2:13:07 PM UT R11.0 ICD10 NAUSEA [id number] on Febo 2024 2:13:07 PM UTC E11.65 ICD10 TYPE 2 DIABETES MELLITUS WITH HYPERGLYCEMIA [id number] on February 21, 2025 2:13:07 PM UT Z79.4 ICD10 PENITENTIARY (CURRE NT) USE OF INSULIN [id number] on February 21, 2025 2:13:07 PM UT Z92.29 ICD10 PERSONAL HISTORY OF OTHER DRUG THERAPY [id number] on February 21, 2025 2:13:07 PM [facility] CARE TEAM Care Deicer Inspector Pneumatic Role GENESIS KHANNA Surgeon GENESIS VORA Primary Attending RENEE CERDA Primary Care GENESIS VORA Admitting HOSPITAL DISCHARGE INSTRUCTION DISCHARGE INSTRUCTION Encounter [id number] Admit Date February 13, 2025 11:2 2:00 AM [facility] Discharge Date February 13, 2025 7:22 :00 PM [facility] PATIENT EDUCATION SUMMARY Patient/Visit Information: Patient Name: CRISTOFER TYLER Diag: Attending Caregiver: VIELKA Juarez Discharge Instruction Sheets Provided: Discharge Information [facility] Radiology CT Guided Biopsy Discharge Instructions [facility]- HELP Patient Instructions: Followup Appointments/Instructions: CARE TEAM CARE insurance salesman Role on Team Location Telecom Status Start Date End Arturo e Updated By CLEMENCIA KAUFFMAN Surgeon normal February 13, 2025 11:22:00 AM [facility] February 13, 2025 7:22:00 PM [facility] [id number] on February 21, 2025 2:13:23 PM [facility] PRASHANT DURAN PCP normal February 06, 2025 6:14:16 PM UTC February 13, 2025 7:22:00 PM UTC [id number] on February 21, 2025 2:13:23 PM UTC VIELKA MULLER Referring normal February 06, 2025 6:14:16 PM UT February 13, 2025 7:22:00 PM UTC [id number] on February 21, 2025 2:13:23 PM UT VIELKA MULLER Attending normal February 06, 2025 6:14:16 PM UT February 13, 2025 7:22:00 PM UTC [id number] on February 21, 2025 2:13:23 PM UT VIELKA MULLER Admitting normal February 06, 2025 6:14:16 PM UTC February 13, 2025 7:22:00 PM UTC [id number] on February 21, 2025 2:13:23 PM UTC
--- OUTSIDE RECORDS SUMMARY | 2025-03-04 03:05 | XMS_ITS | Continuity of Care Document ---
Author Organization [facility] Phone Care Team Providers Care Photograph Inspector Name Role Phone GENESIS VORA Admitting GENESIS VORA Unavailable GENESIS VORA Primary Attending RENEE CERDA Primary Care ALLERGIES AND ADVERSE REACTIONS ALLERGIES AND ADVERSE REACTIONS Code System Allergy Substance Adverse Reaction Date Reaction (Severity) Comment Status Reported By Updated By [id number] RXNorm PENICILLIN Adverse reaction to substance Not Specified active [id number] on February 02, 2024 1:09:37 PM [facility] FAMILY HISTORY RELATION: Father Status: Cause of : Unknown Age at : Unknown SNOMED-CT Diagnosis Age At Onset [id number] Malignant tumor of lung RELATION: Mother Status: Cause of : Unknown Age at : Unknown SNOMED-CT Diagnosis Age At Onset [id number] Diabetes mellitus RESULTS Patient: JAYSON CLEVELAND Date of : 1965 3 LABORATORY RESULTS Information is not available LABORATORY NARRATIVE RESULTS Information is not available RADIOLOGY RESULTS ORDER 100: ECHO W SPEC COLOR FLOW (LOINC: 27938-2) ORDER DATE: March 01, 2025 11:30:00 AM [facility] PERFORMING LAB: [address] [id number] Final Result Date: February 072024 5:38:[address] [address] Name: CRISTOFER TYLER Exam Date: 03/01/2025 : 1965 Age 59 years Gender: F Physician: GENESIS VORA Facility: [facility] Facility HSV: Outpatient Exam: ECHO W SPEC COLOR FLOW Reason for Study: [facility] use of immunosuppressant SUMMARY * Normal LV size with normal systolic function. The ejection fraction is 60-65%. The left ventricular wall motion is normal. Normal diastolic function. * No hemodynmaically significant valvular heart disease. INTERPRETATION DETAIL Gen: A transthoracic echocardiogram (2D, M-mode, spectral and color doppler) was performed. Fair study quality. LV: The left ventricle is normal in size with normal systolic function. The ejection fraction is 60-65%. There is no left ventricular hypertrophy. LV geometry is normal. The left ventricular wall motion is normal. Diastolic function evaluation indicates normal diastolic function. LA: The left atrium is normal. RV: The right ventricle is normal in size with normal function. RA: The right atrium is normal. AV: The aortic valve is normal and trileaflet. There is no aortic valve stenosis, valve area(C.Eq.)= 3.03 cm2, AV peak velocity= 1.03 m/sec, mean grad= 2 mmHg and VTI hadley ratio= 0.87. MV: The mitral valve is normal. TV: The tricuspid valve is normal. PV: The pulmonic valve is normal. Apryl: The pericardium is normal. PA: The pulmonary artery is normal. IAS: The interatrial septum is normal. Ao: The aorta is normal. Cava: The inferior vena cava is normal with greater than 50% inspiratory collapse. IVC diameter= 1.00 cm. The superior vena cava is normal. RESTING WALL MOTION Legally authenticated by KEVIN Juarez 2025-03-01 13:38:57 MEASUREMENTS LV VEGA IVSd: 0.84cm (<=0.9) ILWd: 0.89cm (<=0.9) LV MASS Linear: 98g (<=162) LVMI: 49g/m2 (<=95) LV VOLUME EDV: 50mL (<=106) EDVI: 24.9mL/m2 (<=61) ESV: 19mL (<=42) ESVI: 9.5mL/m2 (<=24) LV CHAMBER LVIDd: 3.86cm (<=5.24) LVIDdI: 24.9mL/m2 (<=3.1) LVIDs: 2.51cm (<=3.5) LVIDsI: 1.25cm/m2 RWT: 0.46 (<=0.42) RV CHAMBER Mid Elena: 3.0cm (<=3.5) RV FUNCTION TAPSE: 1.72cm (>=1.7) LEFT ATRIUM AP: 3.0cm (2.7-3.8) Length: 4.7cm Vol: 28.37mL Vol Ind: 14.11mL/m2 (16-34) LV SYSTOLIC FUNCTION SV: 31mL (60-100) SVI: 15 mL/m2 (35-65) FS: 35% EF: 62% (>=54) LV DIASTOLIC FUNCTION E/A: 0.70 (Variable) E/e' Med: 10.94 (<=15) E/e' Lat: 8.06 (<=13) DT: 156ms (134-230) LV OUTFLOW Elena: 2.10cm (<=2.5) Peak Hadley: 0.97m/sec Mean Grad: 2mmHg LVOT TVI: 14.7cm AORTA Root: 2.80cm (<=3.3) Ascend: 3.25cm (<=3.1) CAVAE IVC Elena: 1.00cm (<2.1) AORTIC VALVE Peak Hadley: 1.03m/sec Mean Hadley: 0.72m/sec Peak Grad: 4mmHg Mean Grad: 2mmHg TVI: 16.8cm RICARDO(C.Eq): 3.03cm2 Indexed RICARDO: 1.51cm2/m2 Hadley Ratio: 0.94 VTI Ratio: 0.87 Tyrone Diana MD Legally authenticated by KEVIN Juarez 2025-03-01 13:38:57 Dictated By: TYRONE DIANA Transcribed By: Transcribed On: 03/01/2025 1:38 PM Electronically signed by: TYRONE DIANA 03/01/2025 Thank you for referring CRISTOFER TYLER to [facility]. Legally authenticated by KEVIN Juarez 2025-03-01 13:38:57 PATHOLOGY NARRATIVE RESULTS Information is not available MICROBIOLOGY RESULTS No Micro Labs/Results Exist for Patient BLOOD ADMIN RESULTS Information is not available MEDICATIONS HOME MEDICATIONS Status RXNORM NDC Medication Dose Route Frequency Dates Comments Reported By Updated By Drug Treatment Unknown DISCHARGE MEDICATIONS Status RXNORM NDC Medication Dose Route Frequency Dates Dis pense Data Comments Physician Updated By No Discharge Medication Info rmation Available INPATIENT MEDICATIONS Status RXNORM NDC Medication Dose Route Frequency Rat e Quantity Dates Indication Dispense Data Comments Physician Updated By No Inpatient Medication Info rmation Available SOCIAL HISTORY SOCIAL HISTORY - Smoking Status SNOMED-CT Social History Element Description Effective Dates Offered Cessation Comment Updated By [id number] Historical Tobacco smoking status Never Smoked [id number] on March 22, 2023 6:35:20 PM [facility] SOCIAL HISTORY - Gender Sex: Female SOCIAL HISTORY - Status : status i nformation is not available Intention in Next Year: intention information is not available SOCIAL HISTORY - Assessments Code System Description Status Date Value of Assessment Updated By Comment Assessment Information is no t available SOCIAL HISTORY - [place] Affiliation [place] information is not av ailable SOCIAL HISTORY - Legal Sex Legal Sex information is not available SOCIAL HISTORY - Sexual Behavior Sexual Orientation Gender Identity SNOMED-CT Description SNO MED -CT Description Activity Level No of Partners Partner Type UpdatedBy Information is not available SOCIAL HISTORY - Occupation Occupation information is no t available HEALTH CONCERNS Problems Concern Status Health Concern problem infor mation not available. Smoking Status Status Years Used Consumed packs p er day Health Concern smoking histo ry information not available. Family History Concern Status Health Concern family histor y information not available. MEDICAL EQUIPMENT MEDICAL EQUIPMENT Device Status Quantity Dates Procedure Comments Updated By [id number] DICKSON: Assigning Authority: FDA ACTIVE 1 Implanted: March 23, 2023 [id number] on March 23, 2023 6:39:37 PM [facility] ENCOUNTERS ENCOUNTER INFORMATION Reason for Visit ECHO Admission March 01, 2025 11:24:[address] [id number] Discharge March 01, 2025 11:24:00 AM [facility] DISCHARGED TO HOME OR SELF CARE ENCOUNTER DIAGNOSES Notes information is not ricardo ilable. Code System Diagnosis Onset Date Diagnosis information is not available. 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 (CURRE NT) USE OF OTHER IMMUNOMODULATORS AND IMMUNOSUPPRESSANTS [id number] on March 04, 2025 8:05:34 AM [facility] CARE TEAM Care Photograph Inspector Role GENESIS VORA Admitting GENESIS VORA Referring GENESIS VORA Primary Attending RENEE CERDA Primary Care CARE TEAM CARE underwriter mortgage loan Role on Team Location Telecom Status Start Date End Arturo e Updated By PRASHANT DURAN PCP normal February 25, 2025 8:11:32 PM [facility] March 01, 2025 11:24:00 AM [facility] [id number] on February 25, 2025 8:11:32 PM [facility] VIELKA MULLER Referring normal February 25, 2025 8:11:31 PM [facility] March 01, 2025 11:24:00 AM [facility] [id number] on February 25, 2025 8:11:32 PM [facility] VIELKA MULLER Attending normal February 25, 2025 8:11:31 PM [facility] March 01, 2025 11:24:00 AM [facility] [id number] on February 25, 2025 8:11:32 PM [facility] VIELKA MULLER Admitting normal February 25, 2025 8:11:31 PM [facility] March 01, 2025 11:24:00 AM [facility] [id number] on February 25, 2025 8:11:32 PM [facility]
--- OUTSIDE RECORDS SUMMARY | 2025-03-08 08:42 | XMS_ITS | Continuity of Care Document ---
Author Organization [facility] Phone Care Team Providers Care It Project Coordinator Name Role Phone GENESIS VORA Admitting RENEE CERDA Primary Care GENESIS VORA Primary Attending ALLERGIES AND ADVERSE REACTIONS ALLERGIES AND ADVERSE REACTIONS Code System Allergy Substance Adverse Reaction Date Reaction (Severity) Comment Status Reported By Updated By [id number] RXNorm PENICILLIN Adverse reaction to substance Not Specified active [id number] on February 02, 2024 1:09:37 PM [place] FAMILY HISTORY RELATION: Father Status: Cause of : Unknown Age at : Unknown SNOMED-CT Diagnosis Age At Onset [id number] Malignant tumor of lung RELATION: Mother Status: Cause of : Unknown Age at : Unknown SNOMED-CT Diagnosis Age At Onset [id number] Diabetes mellitus RESULTS Patient: JAYSON CLEVELAND Date of : 1965 3 LABORATORY RESULTS ORDER 100: CBC AUTO W DIFF ( LOINC: 54763-9) ORDER DATE: March 05, 2025 7:58:00 PM UTC Specimen Source: EDTA Specimen Type: Blood specime n with EDTA PERFORMING LAB: [address] [id number] Result Comment: Final Result Date: March 06, 2025 12:45:00 PM UTC (TECH: PP) LOINC TEST FLAG RESULT REFERENCE RANGE UPDA MELANIE BY 6690-2 Leukocytes [#/volume] in Blood by Automated count N 7.1 K/ul 4.0 K/ul - 10.5 K/ul March 06, 2025 12:45:00 PM UTC (TECH: PP) 789-8 Erythrocytes [#/volume] in Blood by Automated count L 4.1 M/mm3 4.2 M/mm3 - 6.4 M/mm3 March 06, 2025 12:45:00 PM UTC (TECH: PP) 718-7 Hemoglobin [Mass/volume] in Blood L 11.7 gm/dl 12.5 gm/dl - 16.0 gm/dl March 06, 2025 12:45:00 PM UTC (TECH: PP) 53247-2 Hematocrit [Volume Fraction] of Blood N 37.6 % 37.0 % - 47.0 % March 06, 2025 12:45:00 PM UTC (TECH: PP) 787-2 Erythrocyte mean corpuscular volume [Entitic volume] by Automated count N 92.2 fl 78 fl - 100 fl March 06, 2025 12:45:00 PM UTC (TECH: PP) 785-6 Erythrocyte mean corpuscular hemoglobin [Entitic mass] by Automated count N 28.7 pg 27 pg - 31 pg March 06, 2025 12:45:00 PM UTC (TECH: PP) 786-4 Erythrocyte mean corpuscular hemoglobin concentration [Mass/volume] by Automated count L 31.1 g/dl 32 g/dl - 36 g/dl March 06, 2025 12:45:00 PM UTC (TECH: PP) 94621-4 Erythrocyte distribution width [Ratio] H 15.8 % 11.5 % - 14.0 % March 06, 2025 12:45:00 PM UTC (TECH: PP) 777-3 Platelets [#/volume] in Blood by Automated count N 331 K/ul 150 K/ul - 450 K/ul March 06, 2025 12:45:00 PM UTC (TECH: PP) 21262-3 Platelet mean volume [Entitic volume] in Blood by Automated count H 11.0 fl 6 fl - 9.5 fl March 06, 2025 12:45:00 PM UTC (TECH: PP) 07107-8 Neutrophils/100 leukocytes in Blood N 57.7 % 43 % - 65 % March 06, 2025 12:45:00 PM UTC (TECH: PP) 736-9 Lymphocytes/100 leukocytes in Blood by Automated count N 24.8 % 20.5 % - 45.5 % March 06, 2025 12:45:00 PM UTC (TECH: PP) 5905-5 Monocytes/100 leukocytes in Blood by Automated count N 11.5 % 5.5 % - 11.7 % March 06, 2025 12:45:00 PM UTC (TECH: PP) 713-8 Eosinophils/100 leukocytes in Blood by Automated count H 5.0 % 0.9 % - 2.9 % March 06, 2025 12:45:00 PM UTC (TECH: PP) 706-2 Basophils/100 leukocytes in Blood by Automated count N 0.7 % 0.2 % - 1.0 % March 06, 2025 12:45:00 PM UTC (TECH: PP) 39147-6 Immature granulocytes/100 leukocytes in Blood by Automated count N 0.3 % 0.0 % - 0.8 % March 06, 2025 12:45:00 PM UTC (TECH: PP) 42925-6 Nucleated cells [#/volume] in Blood N 0.0 % March 06, 2025 12:45:00 PM UTC (TECH: PP) 96263-8 Neutrophils [#/volume] in Blood N 4.1 K/uL 2.2 K/uL - 4.8 K/uL March 06, 2025 12:45:00 PM UTC (TECH: PP) 731-0 Lymphocytes [#/volume] in Blood by Automated count N 1.8 CELL/MCL 1.3 CELL/MCL - 2.9 CELL/MCL March 06, 2025 12:45:00 PM UTC (TECH: PP) 742-7 Monocytes [#/volume] in Blood by Automated count N 0.8 CELL/MCL 0.3 CELL/MCL - 0.8 CELL/MCL March 06, 2025 12:45:00 PM UTC (TECH: PP) 711-2 Eosinophils [#/volume] in Blood by Automated count H 0.4 CELL/MCL 0 CELL/MCL - 0.2 CELL/MCL March 06, 2025 12:45:00 PM UTC (TECH: PP) 704-7 Basophils [#/volume] in Blood by Automated count N 0.1 CELL/MCL 0.0 CELL/MCL - 1.0 CELL/MCL March 06, 2025 12:45:00 PM UTC (TECH: PP) 85654-1 Immature granulocytes [#/volume] in Blood N 0.02 K/ul March 06, 2025 12:45:00 PM UTC (TECH: PP) 57514-0 Nucleated cells [#/volume] in Blood N 0.00 K/uL March 06, 2025 12:45:00 PM UTC (TECH: PP) 70378-1 Manual Differential panel - Blood N NO March 06, 2025 12:45:00 PM UTC (TECH: PP) ORDER 200: COMP METABOLIC PA NELLA (LOINC: 43114-4) ORDER DATE: March 05, 2025 7:58:00 PM UTC Specimen Source: PLASMA Specimen Type: Plasma specim en PERFORMING LAB: [address] [id number] Result Comment: Final Result Date: March 06, 2025 1:15:00 PM UTC (TECH: ARR) LOINC TEST FLAG RESULT REFERENCE RANGE UPDA MELANIE BY 2951-2 Sodium [Moles/volume ] in Serum or Plasma L 135 mmol/L 136 mmol/L - 145 mmol/L March 06, 2025 1:15:00 PM UTC (TECH: ARR) 2823-3 Potassium [Moles/volume] in Serum or Plasma N 3.9 mmol/L 3.6 mmol/L - 5.0 mmol/L March 06, 2025 1:15:00 PM UTC (TECH: ARR) 2075-0 Chloride [Moles/volu me] in Serum or Plasma N 101 mmol/L 98 mmol/L - 107 mmol/L March 06, 2025 1:15:00 PM UTC (TECH: ARR) 8-9 Carbon dioxide, tota l [Moles/volume] in Serum or Plasma N 28.5 mmol/L 21.0 mmol/L - 32.0 mmol/L March 06, 2025 1:15:00 PM UTC (TECH: ARR) 80927-0 Anion gap in Blood N 9.4 O ct2024 1:15:00 PM UTC (TECH: ARR) 2345-7 Glucose [Mass/volume ] in Serum or Plasma H 133 mg/dl 70 mg/dl - 120 mg/dl March 06, 2025 1:15:00 PM UTC (TECH: ARR) 6299-2 Urea nitrogen [Mass/volume] in Blood N 17 mg/dL 7 mg/dL - 18 mg/dL March 06, 2025 1:15:00 PM UTC (TECH: ARR) 34652-7 Creatinine [Moles/volume] in Blood N 0.9 mg/dL 0.6 mg/dL - 1.3 mg/dL March 06, 2025 1:15:00 PM UTC (TECH: ARR) 79127-9 Glomerular filtratio n rate/1.73 sq M.predicted by Creatinine-based formula (MDRD) N 74 mlpermin 60 mlpermin March 06, 2025 1:15:00 PM UTC (TECH: ARR) 75148-8 Osmolality of Serum or Plasma by calculated by sum of electrolytes N 285 mosm/kg 275 mosm/kg - 301 mosm/kg March 06, 2025 1:15:00 PM UTC (TECH: ARR) 2885-2 Protein [Mass/volume ] in Serum or Plasma H 9.4 g/dl 6.4 g/dl - 8.2 g/dl March 06, 2025 1:15:00 PM UTC (TECH: ARR) 1751-7 Albumin [Mass/volume ] in Serum or Plasma L 3.3 g/dl 3.4 g/dl - 5.0 g/dl March 06, 2025 1:15:00 PM UTC (TECH: ARR) 2336-6 Globulin [Mass/volum e] in Serum N 6.1 March 06, 2025 1:15:00 PM UTC (TECH: ARR) 1759-0 Albumin/Globulin [Ma ss Ratio] in Serum or Plasma L 0.5 0.7 - 2 March 06, 2025 1:15:00 PM UTC (TECH: ARR) 93350-4 Calcium [Mass/volume ] in Serum or Plasma N 9.8 mg/dl 8.5 mg/dl - 10.5 mg/dl March 06, 2025 1:15:00 PM UTC (TECH: ARR) 1975-2 Bilirubin.total [Mass/volume] in Serum or Plasma N 0.80 mg/dL 0.10 mg/dL - 1.00 mg/dL March 06, 2025 1:15:00 PM UTC (TECH: ARR) 1920-8 Aspartate aminotransferase [Enzymatic activity/volume] in Serum or Plasma H 53 U/L 0 U/L - 37 U/L March 06, 2025 1:15:00 PM UTC (TECH: ARR) 1742-6 Alanine aminotransferase [Enzymatic activity/volume] in Serum or Plasma N 32 U/L 0 U/L - 65 U/L March 06, 2025 1:15:00 PM UTC (TECH: ARR) 6768-6 Alkaline phosphatase [Enzymatic activity/volume] in Serum or Plasma H 154 U/L 46 U/L - 116 U/L March 06, 2025 1:15:00 PM UTC (TECH: ARR) ORDER 300: MAGNESIUM (LOINC: 43736-7) ORDER DATE: March 05, 2025 7:58:00 PM UTC Specimen Source: PLASMA Specimen Type: Plasma specim en PERFORMING LAB: [address] [id number] Result Comment: Final Result Date: March 06, 2025 1:15:00 PM UTC (TECH: ARR) LOINC TEST FLAG RESULT [place] [address]-2 Magnesium [Mass/volume] in Serum or Plasma N 1.8 MG/DL 1.8 MG/DL - 2.4 MG/DL February 1:15:00 PM UTC (TECH: ARR) LABORATORY NARRATIVE RESULTS Information is not available RADIOLOGY RESULTS Information is not available PATHOLOGY NARRATIVE RESULTS Information is not available MICROBIOLOGY RESULTS No Micro Labs/Results Exist for Patient BLOOD ADMIN RESULTS Information is not available MEDICATIONS HOME MEDICATIONS Status RXNORM [facility] Medication Dose Route Frequency Dates Comments Reported By Updated By Active [id number] 991986 18389 levothyroxin e (SYNTHROID) 125.0 MCG ORAL ACB Last Dose: [id number] on March 06, 2025 1:08:41 PM [facility] Active 887159 64557 Vitamin D Oral Capsule 125 MCG 0.0 Last Dose: [id number] on March 06, 2025 1:10:06 PM [place] Active 964818 536311 34184 Ondansetron HCl Oral Tablet 4 MG 0.0 Last Dose: [id number] on March 06, 2025 1:10:55 PM [place] Active FreeTe xtMed dexacom sensor 0.0 Last Dose: [id number] on March 06, 2025 6:20:30 PM [place] Active 073998 121955 23127 Insulin Aspart Injection Solution 100 UNIT/ML 0.0 Last Dose: [id number] on March 06, 2025 6:20:55 PM UTC DISCHARGE MEDICATIONS Status RXNORM NDC Medication Dose Route Frequency Dates Dis pense Data Comments Physician Updated By No Discharge Medication Info rmation Available INPATIENT MEDICATIONS Status RXNORM NDC Medication Dose Route Frequency Rat e Quantity Dates Indication Dispense Data Comments Physician Updated By Discont inued 467199 8678 4669 000 acetaminoph en (TYLENOL) 325 MG TABS 650.0 MG ORAL ONE TIME ADMINISTRA TION (UNSCHEDUL ED) Start: 2024 4:36:0 0 PM UTC End: 2024 4:37:5 6 PM [facility] 4:38[facility]00 PM UTC Discont inued 1846125 4477 8363 701 cetirizine (ZyrTEC) 10 MG TABS 10.0 MG ORAL ONE TIME ADMINISTRA TION (UNSCHEDUL ED) Start: 2024 4:36:0 0 PM UTC End: 2024 4:38:0 6 PM [facility] 4:[facility]00 PM UTC Discont inued 0721245 [id number] 6437 5033 778 famotidine (PEPCID) 20 MG/2ML SOLN 20.0 MG INTRAV ENOUS ONE TIME ADMINISTRA TION (UNSCHEDUL ED) Start: 2024 4:36:0 0 PM UTC End: 2024 4:38:1 9 PM UTC [facility] 4:[facility]00 PM UTC Discont inued 5159389 95510197 4762 207 PALONOSETRO N HCL 0.25 MG/5ML SOLN 0.25 MG INTRAV ENOUS ONE TIME ADMINISTRA TION (UNSCHEDUL ED) Start: 2024 4:36:0 0 PM UTC End: 2024 4:38:2 9 PM UTC [facility] 4:38:00 PM UTC Discont inued [phone] 5013 201 sacituzumab govitec (TRODELVY) 180 MG SOLR 900.0 MG INTRAV ENOUS ONE TIME ADMINISTRA TION (UNSCHEDUL ED) 550.0 ML/HR Start: 2024 4:36:0 0 PM UTC End: 2024 4:38:4 1 PM UTC VIELKA Juarez [id number] on Janembe 2024 4:39:00 PM UTC Discont inued 5437217 0033 8004 903 sodium chloride 0.9% SOLN 500.0 ML INTRAV ENOUS ONE TIME ADMINISTRA TION (UNSCHEDUL ED) 550.0 ML/HR Start: 2024 4:36:0 0 PM UTC End: 2024 4:38:4 1 PM UTC VIELKA Juarez [id number] on 2024 4:39:00 PM UTC Discont inued 6483637 4990 6306 100 fosaprepita nt (EMEND) 150 MG SOLR 150.0 MG INTRAV ENOUS ONE TIME ADMINISTRA TION (UNSCHEDUL ED) 506.0 ML/HR Start: 2024 4:37:0 0 PM UTC End: 2024 4:39:1 8 PM UTC VIELKA Juarez [id number] on 2024 4:40:00 PM UTC Discont inued 0476245 2848 3016 501 dexamethaso ne (DECADRON) 4 MG/ML SOLN 12.0 MG INTRAV ENOUS ONE TIME ADMINISTRA TION (UNSCHEDUL ED) 506.0 ML/HR Start: 2024 4:37:0 0 PM UTC End: 2024 4:39:1 8 PM UTC VIELKA Juarez [id number] on e 2024 4:40:00 PM UTC Discont inued 6055830 0040 9710 167 sodium chloride 0.9% SOLN 145.0 ML INTRAV ENOUS ONE TIME ADMINISTRA TION (UNSCHEDUL ED) 506.0 ML/HR Start: 2024 4:37:0 0 PM UTC End: 2024 4:39:1 8 PM UTC VIELKA Juarez [id number] on 2024 4:40:00 PM UTC Discont inued 458005 1686 4677 361 acetaminoph en (TYLENOL) 325 MG TABS 650.0 MG ORAL ONE TIME ADMINISTRA TION (UNSCHEDUL ED) Start: Febobe r 2024 12:00: 00 PM UTC End: Febobe r 2024 3:06:0 0 PM UTC VIELKA WINTER on February 27, 2025 3:06:00 PM UTC Discont inued 2064495 5257 8363 701 cetirizine (ZyrTEC) 10 MG TABS 10.0 MG ORAL ONE TIME ADMINISTRA TION (UNSCHEDUL ED) Start: 2024 12:00: 00 PM UTC End: Febobe 2024 3:06:0 8 PM UTC VIELKA WINTER on February 27, 2025 3:06:00 PM UTC Discont inued 6968396 1213 3073 912 famotidine (PEPCID) 20 MG/2ML SOLN 20.0 MG INTRAV ENOUS ONE TIME ADMINISTRA TION (UNSCHEDUL ED) Start: 2024 12:00: 00 PM UTC End: 2024 2:08:4 2 PM UTC VIELKA WINTER on February 08, 2025 2:08:00 PM UTC Discont inued 2493658 2233 7032 725 PALONOSETRO N HCL 0.25 MG/5ML SOLN 0.25 MG INTRAV ENOUS ONE TIME ADMINISTRA TION (UNSCHEDUL ED) Start: Febobe r 2024 12:00: 00 PM UTC End: Febobe r 2024 3:06:1 6 PM UTC VIELKA WINTER on February 27, 2025 3:06:00 PM UTC Discont inued 6179134 3331 7656 201 sacituzumab govitec (TRODELVY) 180 MG SOLR 900.0 MG INTRAV ENOUS ONE TIME ADMINISTRA TION (UNSCHEDUL ED) 550.0 ML/HR Start: Febobe r 2024 12:00: 00 PM UTC End: Febobe r 2024 2:08:4 5 PM UTC VIELKA Juarez [id number] on February 08, 2025 2:08:00 PM UTC Discont inued 5295399 0033 8004 903 sodium chloride 0.9% SOLN 500.0 ML INTRAV ENOUS ONE TIME ADMINISTRA TION (UNSCHEDUL ED) 550.0 ML/HR Start: Octobe r 2024 12:00: 00 PM UTC End: Octobe r 2024 2:08:3 3 PM UTC VIELKA SAAVEDRAEN on February 08, 2025 2:08:00 PM UTC Discont inued 4471616 6968 6306 100 fosaprepita nt (EMEND) 150 MG SOLR 150.0 MG INTRAV ENOUS ONE TIME ADMINISTRA TION (UNSCHEDUL ED) 506.0 ML/HR Start: Octobe r 2024 12:00: 00 PM UTC End: Octobe r 2024 3:06:2 6 PM UTC VIELKA Juarez [id number] on February 27, 2025 3:06:00 PM UTC Discont inued 9882566 4274 3016 501 dexamethaso ne (DECADRON) 4 MG/ML SOLN 12.0 MG INTRAV ENOUS ONE TIME ADMINISTRA TION (UNSCHEDUL ED) 506.0 ML/HR Start: Octobe r 2024 12:00: 00 PM UTC End: Octobe r 2024 2:08:3 3 PM UTC VIELKA Juarez [id number] on February 27, 2025 3:06:00 PM UTC Discont inued 0268752 0040 9710 167 sodium chloride 0.9% SOLN 145.0 ML INTRAV ENOUS ONE TIME ADMINISTRA TION (UNSCHEDUL ED) 506.0 ML/HR Start: Octobe r 2024 12:00: 00 PM UTC End: Octobe r 2024 2:08:3 3 PM UTC VIELKA Juarez [id number] on February 27, 2025 3:06:00 PM UTC Discont inued 807889 2746 4677 361 acetaminoph en (TYLENOL) 325 MG TABS 650.0 MG ORAL ONE TIME ADMINISTRA TION (UNSCHEDUL ED) Start: Octobe r 2024 12:00: 00 PM UTC End: [facility] 2024 1:28:2 1 PM UTC VIELKA Juarez [id number] on March 06, 2025 1:28:00 PM UTC Discont inued 5990865 4054 8363 701 cetirizine (ZyrTEC) 10 MG TABS 10.0 MG ORAL ONE TIME ADMINISTRA TION (UNSCHEDUL ED) Start: [facility] 2024 12:00: 00 PM UTC End: [facility] 2024 1:28:2 2 PM UTC VIELKA Juarez [id number] on March 06, 2025 1:28:00 PM UTC Discont inued 2721590 4058 7031 725 PALONOSETRO N HCL 0.25 MG/5ML SOLN 0.25 MG INTRAV ENOUS ONE TIME ADMINISTRA TION (UNSCHEDUL ED) Start: [facility] 2024 12:00: 00 PM UTC End: [facility] 2024 1:28:3 6 PM UTC VIELKA Juarez [id number] on March 06, 2025 1:28:00 PM UTC Discont inued 5706653 4015 6306 100 fosaprepita nt (EMEND) 150 MG SOLR 150.0 MG INTRAV ENOUS ONE TIME ADMINISTRA TION (UNSCHEDUL ED) 506.0 ML/HR Start: [facility] 2024 12:00: 00 PM UTC End: [facility] 2024 1:39:2 3 PM UTC VIELKA Juarez [id number] on March 06, 2025 1:39:00 PM UTC Discont inued [id number] 5772 3016 501 dexamethaso ne (DECADRON) 4 MG/ML SOLN 12.0 MG INTRAV ENOUS ONE TIME ADMINISTRA TION (UNSCHEDUL ED) 506.0 ML/HR Start: [facility] 2024 12:00: 00 PM UTC End: [facility] 2024 1:39:2 3 PM UTC VIELKA Juarez [id number] on March 06, 2025 1:39:00 PM UTC Discont inued 6752045 0040 9710 167 sodium chloride 0.9% SOLN 145.0 ML INTRAV ENOUS ONE TIME ADMINISTRA TION (UNSCHEDUL ED) 506.0 ML/HR [facility] 1:[facility]2 3 PM UTC VIELKA Juarez [id number] on March 06, 2025 1:39:00 PM UTC Discont inued [id number] 6569 7038 609 fam-trastuz umab (ENHERTU) 100 MG SOLR 470.0 MG INTRAV ENOUS ONE TIME ADMINISTRA TION (UNSCHEDUL ED) 89.0 ML/HR [facility] 12:[facility] 00 PM [facility] 2:36:4 6 PM UTC VIELKA Juarez [id number] on March 06, 2025 2:36:00 PM UTC Discont inued 5474150 3135 8001 748 dextrose 5% SOLN 100.0 ML INTRAV ENOUS ONE TIME ADMINISTRA TION (UNSCHEDUL ED) 89.0 ML/HR Start: [facility] r 2024 12:00: 00 PM UTC [facility] 2:36:4 6 PM UTC VIELKA Juarez [id number] on March 06, 2025 2:36:00 PM UTC Discont inued [id number] 0033 8004 904 sodium chloride 0.9% SOLN 1000. 0 ML IV CONTIN UOUS ONE TIME ONLY (SCHEDULED DOSE) [facility] 1:00:0 0 PM UTC End: [facility] r 2024 1:00:0 0 PM UTC [facility]ELKA Juarez [facility] on March 06, 2025 3:47:00 PM UTC Discont inued 546133 2903 4677 361 acetaminoph en (TYLENOL) 325 MG TABS 325.0 MG ORAL ONE TIME ONLY (SCHEDULED DOSE) Start: Febobe r 2024 1:28:0 0 PM UTC [facility] 1:28:0 0 PM UTC VIELKA Juarez [facility] on March 06, 2025 1:26:00 PM [place] SOCIAL HISTORY SOCIAL HISTORY - Smoking Status SNOMED-CT Social History Element Description Effective Dates Offered Cessation Comment Updated By [id number] Historical Tobacco smoking status Never Smoked [id number] on March 22, 2023 6:35:20 PM UTC SOCIAL HISTORY - Gender Sex: Female SOCIAL HISTORY - Status : status i nformation is not available Intention in Next Year: intention information is not available SOCIAL HISTORY - Assessments Code System Description Status Date Value of Assessment Updated By Comment Assessment Information is no t available SOCIAL HISTORY - [place] Affiliation [place] information is not av ailable SOCIAL HISTORY [...] value for each vital sign as of March 08, 2025 1:42:52 PM UTC Loinc Code Vital Sign Activity Date Result Updated By 8310-5 Body temperature March 06 1:00:00 PM UTC 97.1 [degF] 17515-8 Body weight Measured March 06, 2025 1:17:27 PM UTC 83.1 kg (183.0 lb) [id number] on March 06, 2025 1:17:27 PM UTC 8462-4 Diastolic blood pressure March 06, 2025 1:00:00 PM UTC 93.0 mm[Hg] 8867-4 Heart rate March 06, 2025 1:00:00 PM UTC 103 /min 95249-4 Oxygen saturation in Arterial blood by Pulse oximetry March 06, 2025 1:00:00 PM UTC 97.0 % 9279-1 Respiratory rate March 06 1:00:00 PM UTC 18 /min 8480-6 Systolic blood pressure March 06, 2025 1:00:00 PM UTC 128.0 mm[Hg] PEDIATRIC GROWTH CHART - VITAL SIGNS This section displays Head C ircumference Percentile, Weight for Length Percentile and BMI Percentile Loinc Code Pediatric Measure Age (Months) Result Updat ed By No Pediatric Growth Chart Pe rcentile Information Available. HEALTH CONCERNS Problems Concern Status Health Concern problem infor mation not available. Smoking Status Status Years Used Consumed packs p er day Health Concern smoking histo ry information not available. Family History Concern Status Health Concern family histor y information not available. MEDICAL EQUIPMENT MEDICAL EQUIPMENT Device Status Quantity Dates Procedure Comments Updated By [id number] DICKSON: Assigning Authority: FDA ACTIVE 1 Implanted: March 23, 2023 [id number] on March 23, 2023 6:39:37 PM [facility] ENCOUNTERS ENCOUNTER INFORMATION Reason for Visit Not Specified Admission March 06, 2025 12:05:00 PM [place] [id number] [facility] [id number] Discharge March 07, 2025 8:14:00 PM [facility] DISCHARGED TO HOME OR SELF CARE ENCOUNTER DIAGNOSES Notes information is not gonzalo ilable. Code System Diagnosis Onset Date Diagnosis information is not available. 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 [id number] on March 08, 2025 1:42:32 PM [facility] D49.9 ICD10 NEOPLASM OF UNSP ECIFIED BEHAVIOR OF UNSPECIFIED SITE [id number] on March 08, 2025 1:42:32 PM [facility] Z88.0 ICD10 ALLERGY STATUS TO PENICILLIN [id number] on March 08, 2025 1:42:32 PM [facility] CARE TEAM Care It Project Coordinator Role GENESIS VORA Admitting RENEE CERDA Primary Care GENESIS VORA Primary Attending CARE TEAM 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 Role on Team Location Telecom Status Start Date End Arturo e Updated By PRASHANT DURAN PCP normal January 17, 2025 3:16:29 PM [facility] March 06, 2025 4:00:00 AM [facility] [id number] on January 17, 2025 3:16:29 PM [facility] VIELKA MULLER Attending normal January 17, 2025 3:16:29 PM [facility] March 06, 2025 4:00:00 AM [facility] [id number] on January 17, 2025 3:16:29 PM [facility] VIELKA MULLER Admitting normal January 17, 2025 3:16:29 PM [facility] March 06, 2025 4:00:00 AM [facility] [id number] on January 17, 2025 3:16:29 PM [facility]
--- OUTSIDE RECORDS SUMMARY | 2025-04-05 08:46 | XMS_ITS | Continuity of Care Document ---
Author Organization [facility] Phone Care Team Providers Care Slubber Frame Changer Name Role Phone RENEE CERDA Primary Care GENESIS VORA Primary Attending GENESIS VORA Admitting RENEE CERDA Unavailable ALLERGIES AND ADVERSE REACTIONS ALLERGIES AND ADVERSE REACTIONS Code System Allergy Substance Adverse Reaction Date Reaction (Severity) Comment Status Reported By Updated By [id number] RXNorm PENICILLIN Adverse reaction to substance Not Specified active [id number] on February 02, 2024 1:09:37 PM UT FAMILY HISTORY RELATION: Father Status: Cause of : Unknown Age at : Unknown SNOMED-CT Diagnosis Age At Onset [id number] Malignant tumor of lung RELATION: Mother Status: Cause of : Unknown Age at : Unknown SNOMED-CT Diagnosis Age At Onset [id number] Diabetes mellitus RESULTS Patient: JAYSON CLEVELAND Date of : 1965 3 LABORATORY RESULTS ORDER 100: CBC AUTO W DIFF ( LOINC: 52952-0) ORDER DATE: March 26, 2025 9:35:00 PM UT Specimen Source: EDTA Specimen Type: Blood specime n with EDTA PERFORMING LAB: [address] [id number] Result Comment: Final Result Date: March 27, 2025 2:30:00 PM UTC (TECH: PP) LOINC TEST FLAG RESULT REFERENCE RANGE UPDA MELANIE BY 6690-2 Leukocytes [#/volume ] in Blood by Automated count N 4.2 K/ul 4.0 K/ul - 10.5 K/ul March 27, 2025 2:30:00 PM UTC (TECH: PP) 789-8 Erythrocytes [#/volume] in Blood by Automated count L 3.7 M/mm3 4.2 M/mm3 - 6.4 M/mm3 March 27, 2025 2:30:00 PM UTC (TECH: PP) 718-7 Hemoglobin [Mass/volume] in Blood L 10.9 gm/dl 12.5 gm/dl - 16.0 gm/dl March 27, 2025 2:30:00 PM UTC (TECH: PP) 45678-2 Hematocrit [Volume Fraction] of Blood L 34.5 % 37.0 % - 47.0 % March 27, 2025 2:30:00 PM UTC (TECH: PP) 787-2 Erythrocyte mean corpuscular volume [Entitic volume] by Automated count N 92.2 fl 78 fl - 100 fl March 27, 2025 2:30:00 PM UTC (TECH: PP) 785-6 Erythrocyte mean corpuscular hemoglobin [Entitic mass] by Automated count N 29.1 pg 27 pg - 31 pg March 27, 2025 2:30:00 PM UTC (TECH: PP) 786-4 Erythrocyte mean corpuscular hemoglobin concentration [Mass/volume] by Automated count L 31.6 g/dl 32 g/dl - 36 g/dl March 27, 2025 2:30:00 PM UTC (TECH: PP) 14672-3 Erythrocyte distribution width [Ratio] H 17.1 % 11.5 % - 14.0 % March 27, 2025 2:30:00 PM UTC (TECH: PP) 777-3 Platelets [#/volume] in Blood by Automated count H 475 K/ul 150 K/ul - 450 K/ul March 27, 2025 2:30:00 PM UTC (TECH: PP) 64806-3 Platelet mean volume [Entitic volume] in Blood by Automated count H 10.1 fl 6 fl - 9.5 fl March 27, 2025 2:30:00 PM UTC (TECH: PP) 37508-5 Neutrophils/100 leukocytes in Blood N 53.9 % 43 % - 65 % March 27, 2025 2:30:00 PM UTC (TECH: PP) 736-9 Lymphocytes/100 leukocytes in Blood by Automated count N 29.0 % 20.5 % - 45.5 % March 27, 2025 2:30:00 PM UTC (TECH: PP) 5905-5 Monocytes/100 leukocytes in Blood by Automated count H 14.0 % 5.5 % - 11.7 % March 27, 2025 2:30:00 PM UTC (TECH: PP) 713-8 Eosinophils/100 leukocytes in Blood by Automated count N 1.7 % 0.9 % - 2.9 % March 27, 2025 2:30:00 PM UTC (TECH: PP) 706-2 Basophils/100 leukocytes in Blood by Automated count H 1.2 % 0.2 % - 1.0 % March 27, 2025 2:30:00 PM UTC (TECH: PP) 90979-0 Immature granulocytes/100 leukocytes in Blood by Automated count N 0.2 % 0.0 % - 0.8 % March 27, 2025 2:30:00 PM UTC (TECH: PP) 04067-6 Nucleated cells [#/volume] in Blood N 0.0 % March 27, 2025 2:30:00 PM UTC (TECH: PP) 12180-1 Neutrophils [#/volume] in Blood N 2.3 K/uL 2.2 K/uL - 4.8 K/uL March 27, 2025 2:30:00 PM UTC (TECH: PP) 731-0 Lymphocytes [#/volume] in Blood by Automated count L 1.2 CELL/MCL 1.3 CELL/MCL - 2.9 CELL/MCL March 27, 2025 2:30:00 PM UTC (TECH: PP) 742-7 Monocytes [#/volume] in Blood by Automated count N 0.6 CELL/MCL 0.3 CELL/MCL - 0.8 CELL/MCL March 27, 2025 2:30:00 PM UTC (TECH: PP) 711-2 Eosinophils [#/volume] in Blood by Automated count N 0.1 CELL/MCL 0 CELL/MCL - 0.2 CELL/MCL March 27, 2025 2:30:00 PM UTC (TECH: PP) 704-7 Basophils [#/volume] in Blood by Automated count N 0.1 CELL/MCL 0.0 CELL/MCL - 1.0 CELL/MCL March 27, 2025 2:30:00 PM UTC (TECH: PP) 41347-6 Immature granulocyte s [#/volume] in Blood N 0.01 K/ul March 27, 2025 2:30:00 PM UTC (TECH: PP) 80285-6 Nucleated cells [#/volume] in Blood N 0.00 K/uL March 27, 2025 2:30:00 PM UTC (TECH: PP) 36986-4 Manual Differential panel - Blood N NO March 27, 2025 2:30:00 PM UTC (TECH: PP) 778-1 Platelets [#/volume] in Blood by Manual count N ADEQUATE ADEQUATE March 27, 2025 2:30:00 PM UTC (TECH: PP) 70797-9 Erythrocytes [Morphology] in Blood by Automated count ABNORMAL NORMAL March 27, 2025 2:30:00 PM UTC (TECH: PP) 702-1 Anisocytosis [Presence] in Blood by Light microscopy N 1+ NONE SEEN March 27, 2025 2:30:00 PM UTC (TECH: PP) 779-9 Poikilocytosis [Presence] in Blood by Light microscopy N SLIGHT NONE SEEN March 27, 2025 2:30:00 PM UTC (TECH: PP) ORDER 200: COMP METABOLIC PA NELLA (LOINC: 93554-9) ORDER DATE: March 26, 2025 9:35:00 PM UTC Specimen Source: PLASMA Specimen Type: Plasma specim en PERFORMING LAB: [address] [id number] Result Comment: Final Result Date: March 27, 2025 2:03:00 PM UTC (TECH: ARR) LOINC TEST FLAG RESULT REFERENCE RANGE UPDA MELANIE BY 2951-2 Sodium [Moles/volume ] in Serum or Plasma N 136 mmol/L 136 mmol/L - 145 mmol/L March 27, 2025 2:03:00 PM UTC (TECH: ARR) 2823-3 Potassium [Moles/volume] in Serum or Plasma N 3.7 mmol/L 3.6 mmol/L - 5.0 mmol/L March 27, 2025 2:03:00 PM UTC (TECH: ARR) 2075-0 Chloride [Moles/volume] in Serum or Plasma N 100 mmol/L 98 mmol/L - 107 mmol/L March 27, 2025 2:03:00 PM UTC (TECH: ARR) 2028-9 Carbon dioxide, tota l [Moles/volume] in Serum or Plasma N 27.5 mmol/L 21.0 mmol/L - 32.0 mmol/L March 27, 2025 2:03:00 PM UTC (TECH: ARR) 31740-9 Anion gap in Blood N 12.2 N ov2024 2:03:00 PM UTC (TECH: ARR) 2345-7 Glucose [Mass/volume ] in Serum or Plasma N 92 mg/dl 70 mg/dl - 120 mg/dl March 27, 2025 2:03:00 PM UTC (TECH: ARR) 6299-2 Urea nitrogen [Mass/volume] in Blood N 16 mg/dL 7 mg/dL - 18 mg/dL March 27, 2025 2:03:00 PM UTC (TECH: ARR) 02622-8 Creatinine [Moles/volume] in Blood N 0.9 mg/dL 0.6 mg/dL - 1.3 mg/dL March 27, 2025 2:03:00 PM UTC (TECH: ARR) 26745-0 Glomerular filtratio n rate/1.73 sq M.predicted by Creatinine-based formula (MDRD) N 74 mlpermin 60 mlpermin March 27, 2025 2:03:00 PM UTC (TECH: ARR) 63948-3 Osmolality of Serum or Plasma by calculated by sum of electrolytes N 284 mosm/kg 275 mosm/kg - 301 mosm/kg March 27, 2025 2:03:00 PM UTC (TECH: ARR) 2885-2 Protein [Mass/volume ] in Serum or Plasma N 7.6 g/dl 6.4 g/dl - 8.2 g/dl March 27, 2025 2:03:00 PM UTC (TECH: ARR) 1751-7 Albumin [Mass/volume ] in Serum or Plasma L 2.7 g/dl 3.4 g/dl - 5.0 g/dl March 27, 2025 2:03:00 PM UTC (TECH: ARR) 2336-6 Globulin [Mass/volum e] in Serum N 4.9 March 27, 2025 2:03:00 PM UTC (TECH: ARR) 1759-0 Albumin/Globulin [Ma ss Ratio] in Serum or Plasma L 0.6 0.7 - 2 March 27, 2025 2:03:00 PM UTC (TECH: ARR) 96676-8 Calcium [Mass/volume ] in Serum or Plasma N 9.3 mg/dl 8.5 mg/dl - 10.5 mg/dl March 27, 2025 2:03:00 PM UTC (TECH: ARR) 1975-2 Bilirubin.total [Mass/volume] in Serum or Plasma N 0.60 mg/dL 0.10 mg/dL - 1.00 mg/dL March 27, 2025 2:03:00 PM UTC (TECH: ARR) 1920-8 Aspartate aminotransferase [Enzymatic activity/volume] in Serum or Plasma H 317 U/L 0 U/L - 37 U/L March 27, 2025 2:03:00 PM UTC (TECH: ARR) 1742-6 Alanine aminotransferase [Enzymatic activity/volume] in Serum or Plasma H 210 U/L 0 U/L - 65 U/L March 27, 2025 2:03:00 PM UT (TECH: ARR) 6768-6 Alkaline phosphatase [Enzymatic activity/volume] in Serum or Plasma H 523 U/L 46 U/L - 116 U/L March 27, 2025 2:03:00 PM UT (TECH: ARR) ORDER 300: MAGNESIUM (LOINC: 47279-1) ORDER DATE: March 26, 2025 9:35:00 PM UT Specimen Source: PLASMA Specimen Type: Plasma specim en PERFORMING LAB: [address] [id number] Result Comment: Final Result Date: March 27, 2025 2:03:00 PM UT (TECH: ARR) LOINC TEST FLAG RESULT [place] [address]-9 Magnesium [Mass/volume] in Serum or Plasma N 1.8 MG/DL 1.8 MG/DL - 2.4 MG/DL March 092024 2:03:00 PM UT (TECH: ARR) LABORATORY NARRATIVE RESULTS Information is not available RADIOLOGY RESULTS Information is not available PATHOLOGY NARRATIVE RESULTS Information is not available MICROBIOLOGY RESULTS No Micro Labs/Results Exist for Patient BLOOD ADMIN RESULTS Information is not available MEDICATIONS HOME MEDICATIONS Status RXNORM NDC Medication Dose Route Frequency Dates Comments Reported By Updated By Active Hortencia rich dexacom sensor 0.0 Last Dose: [id number] on March 27, 2025 2:06:06 PM UT Active 486877 26459 31229 1 Insulin Aspart Injection Solution 100 UNIT/ML 0.0 Last Dose: [id number] on March 27, 2025 2:06:06 PM [facility] Active 398777 47085 75541 0 levothyroxin e (SYNTHROID) 125.0 MCG ORAL ACB Last Dose: [id number] on March 27, 2025 2:06:06 PM UT Active 590902 41444 17681 0 Ondansetron HCl Oral Tablet 4 MG 0.0 Last Dose: [id number] on March 27, 2025 2:06:06 PM [facility] Active 09406 73655 8 Vitamin D Oral Capsule 125 MCG 0.0 Last Dose: [id number] on March 27, 2025 2:06:06 PM [facility] DISCHARGE MEDICATIONS Status RXNORM [facility] Medication Dose Route Frequency Dates Dis pense Data Comments Physician Updated By No Discharge Medication Info rmation Available INPATIENT MEDICATIONS Status RXNORM ND Medication Dose Route Frequency Rat e Quantity Dates Indication Dispense Data Comments Physician Updated By Discont inued 451948 3326 4677 361 acetaminoph en (TYLENOL) 325 MG TABS 650.0 MG ORAL ONE TIME ADMINISTRA TION (UNSCHEDUL ED) Start: 2024 3:59:0 0 PM UT End: 2024 4:00:1 4 PM UT VIELAK WINTER on March 20, 2025 4:00:00 PM UT Discont inued 3329071 0182 8363 701 cetirizine (ZyrTEC) 10 MG TABS 10.0 MG ORAL ONE TIME ADMINISTRA TION (UNSCHEDUL ED) Start: 2024 3:59:0 0 PM UTC End: 2024 4:00:2 9 PM UTC VIELKA WINTER on March 20, 2025 4:00:00 PM UT Discont inued 5679963 1845 7023 725 PALONOSETRO N HCL 0.25 MG/5ML SOLN 0.25 MG INTRAV ENOUS ONE TIME ADMINISTRA TION (UNSCHEDUL ED) Start: 2024 3:59:0 0 PM UTC End: 2024 4:00:3 8 PM UTC VIELKA WINTER on March 20, 2025 4:00:00 PM UTC Discont inued 4103858 6559 7094 601 fam-trastuz umab (ENHERTU) 100 MG SOLR 470.0 MG INTRAV ENOUS ONE TIME ADMINISTRA TION (UNSCHEDUL ED) 89.0 ML/HR Start: 2024 3:59:0 0 PM UTC End: 2024 4:00:4 8 PM UTC VIELKA Juarez [id number] on March 20, 2025 4:01:00 PM UTC Discont inued 3834150 0682 8001 748 dextrose 5% SOLN 100.0 ML INTRAV ENOUS ONE TIME ADMINISTRA TION (UNSCHEDUL ED) 89.0 ML/HR Start: 2024 3:59:0 0 PM UTC End: 2024 4:00:4 8 PM UTC VIELKA Juarez [id number] on March 20, 2025 4:01:00 PM UTC Discont inued 0220074 3200 6306 100 fosaprepita nt (EMEND) 150 MG SOLR 150.0 MG INTRAV ENOUS ONE TIME ADMINISTRA TION (UNSCHEDUL ED) 506.0 ML/HR Start: 2024 3:59:0 0 PM UTC End: 2024 4:01:5 1 PM UTC VIELKA Juarez [id number] on March 20, 2025 4:02:00 PM UTC Discont inued 2299687 1643 3016 501 dexamethaso ne (DECADRON) 4 MG/ML SOLN 12.0 MG INTRAV ENOUS ONE TIME ADMINISTRA TION (UNSCHEDUL ED) 506.0 ML/HR Start: 2024 3:59:0 0 PM UTC End: 2024 4:01:5 1 PM UTC VIELKA Juarez [id number] on March 20, 2025 4:02:00 PM UTC Discont inued 8258650 0040 9710 167 sodium chloride 0.9% SOLN 145.0 ML INTRAV ENOUS ONE TIME ADMINISTRA TION (UNSCHEDUL ED) 506.0 ML/HR Start: 2024 3:59:0 0 PM UTC End: [facility] 2024 4:01:5 1 PM UTC VIELKA Juarez [id number] on March 20, 2025 4:02:00 PM UTC Discont inued 631705 5919 4677 361 acetaminoph en (TYLENOL) 325 MG TABS 650.0 MG ORAL ONE TIME ADMINISTRA TION (UNSCHEDUL ED) Start: [facility] 2024 4:00:0 0 PM UTC End: [facility] 2024 2:12:4 0 PM UTC VIELKA Juarez [id number] on March 27, 2025 2:12:00 PM UTC Discont inued 8707794 2364 8363 701 cetirizine (ZyrTEC) 10 MG TABS 10.0 MG ORAL ONE TIME ADMINISTRA TION (UNSCHEDUL ED) Start: [facility] 2024 4:00:0 0 PM UTC End: [facility] 2024 2:12:3 9 PM UTC VIELKA Juarez [id number] on March 27, 2025 2:12:00 PM UTC Discont inued 3824740 4244 7036 723 PALONOSETRO N HCL 0.25 MG/5ML SOLN 0.25 MG INTRAV ENOUS ONE TIME ADMINISTRA TION (UNSCHEDUL ED) Start: [facility] 2024 4:00:0 0 PM UTC End: [facility] 2024 2:12:5 7 PM UTC VIELKA Juarez [id number] on March 27, 2025 2:12:00 PM UTC Discont inued 9811547 6556 7045 603 fam-trastuz umab (ENHERTU) 100 MG SOLR 470.0 MG INTRAV ENOUS GIVE ONE DOSE NOW 267.0 ML/HR Start: [facility] 2024 3:00:0 0 PM UTC End: [facility] 2024 3:41:2 2 PM UTC VIELKA Juarez [id number] on March 27, 2025 3:41:00 PM UTC Discont inued 1992724 0557 8001 748 dextrose 5% SOLN 100.0 ML INTRAV ENOUS GIVE ONE DOSE NOW 267.0 ML/HR Start: [facility] 2024 3:00:0 0 PM UTC End: [facility] 2024 3:41:2 2 PM UTC VIELKA Juarez [id number] on March 27, 2025 3:41:00 PM UTC Discont inued 2436822 8346 6306 100 fosaprepita nt (EMEND) 150 MG SOLR 150.0 MG INTRAV ENOUS GIVE ONE DOSE NOW 506.0 ML/HR Start: [facility] 2024 3:00:0 0 PM UTC End: [facility] 2024 3:00:0 0 PM UTC VIELKA Juarez [id number] on March 27, 2025 2:35:00 PM UTC Discont inued 1939166 1452 3016 501 dexamethaso ne (DECADRON) 4 MG/ML SOLN 12.0 MG INTRAV ENOUS GIVE ONE DOSE NOW 506.0 ML/HR Start: [facility] 2024 3:00:0 0 PM UTC End: [facility] 2024 2:35:2 4 PM UTC VIELKA Juarez [id number] on March 27, 2025 2:35:00 PM UTC Discont inued 1515588 0040 9710 167 sodium chloride 0.9% SOLN 145.0 ML INTRAV ENOUS GIVE ONE DOSE NOW 506.0 ML/HR Start: [facility] 2024 3:00:0 0 PM UTC End: [facility] 2024 2:35:2 4 PM UTC VIELKA Juarez [id number] on March 27, 2025 2:35:00 PM UTC Discont inued 6626213 0033 8004 904 sodium chloride 0.9% SOLN 1000. 0 ML IV CONTIN UOUS ONE TIME ONLY (SCHEDULED DOSE) Start: [facility] 2024 6:02:0 0 PM UTC End: [facility] 2024 6:02:0 0 PM UTC VIELKA Juarez INTERFAC ED on March 28, 2025 7:51:00 PM UTC SOCIAL HISTORY SOCIAL HISTORY - Smoking Status SNOMED-CT Social History Element Description Effective Dates Offered Cessation Comment Updated By [id number] Historical Tobacco smoking status Never Smoked [id number] on March 22, 2023 6:35:20 PM UTC SOCIAL HISTORY - Gender Sex: Female SOCIAL HISTORY - Status : status i nformation is not available Intention in Next Year: intention information is not available SOCIAL HISTORY - Assessments Code System Description Status Date Value of Assessment Updated By Comment Assessment Information is no t available SOCIAL HISTORY - Lime Affiliation Lime information is not av ailable SOCIAL HISTORY [...] value for each vital sign as of April 05, 2025 1:46:12 PM UTC Loinc Code Vital Sign Activity Date Result Updated By 8310-5 Body temperature March 27 2:00:00 PM UTC 97.5 [degF] 31458-8 Body weight Measured March 6:38:23 PM UTC 86.3 kg (190.0 lb) [id number] on March 27, 2025 6:38:23 PM UTC 8462-4 Diastolic blood pressure March 27, 2025 2:00:00 PM UTC 82.0 mm[Hg] 8867-4 Heart rate March 27 2:00:00 PM UTC 109 /min 93530-9 Oxygen saturation in Arterial blood by Pulse oximetry March 27, 2025 2:00:00 PM UTC 100.0 % 9279-1 Respiratory rate March 27 2:00:00 PM UTC 18 /min 8480-6 Systolic blood pressure March 27, 2025 2:00:00 PM UTC 155.0 mm[Hg] PEDIATRIC GROWTH CHART - VITAL SIGNS [...] Status Quantity Dates Procedure Comments Updated By [id number] DICKSON: Assigning Authority: FDA ACTIVE 1 Implanted: March 23, 2023 [id number] on March 23, 2023 6:39:37 PM UTC ENCOUNTERS ENCOUNTER INFORMATION Reason for Visit Not Specified Admission March 27, 2025 12:49:00 PM UT C [facility] [address] [address] [id number] Discharge April 03, 2025 2:12:00 PM UT DISCHARGED TO HOME OR SELF CARE ENCOUNTER DIAGNOSES Notes information is not gonzalo ilable. Code System Diagnosis Onset Date Diagnosis information is not available. 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 [id number] on April 05, 2025 1:45:55 PM UT D49.9 ICD10 NEOPLASM OF UNSP ECIFIED BEHAVIOR OF UNSPECIFIED SITE [id number] on April 05, 2025 1:45:55 PM UT Z88.0 ICD10 ALLERGY STATUS TO PENICILLIN [id number] on April 05, 2025 1:45:55 PM UT CARE TEAM Care Slubber Frame Changer Role RENEE CERDA Primary Care GENESIS VORA Primary Attending GENESIS VORA Admitting RENEE CERDA Referring CARE TEAM CARE egg tester Role on Team Location Telecom Status Start Date End Arturo e Updated By PRASHANT DURAN Referring normal March 27, 2025 12:52:31 PM UT April 03, 2025 2:12:00 PM UT [id number] on March 27, 2025 12:52:31 PM UT PRASHANT DURAN PCP normal March 05, 2025 1:30:55 PM UT April 03, 2025 2:12:00 PM [facility] [id number] on March 27, 2025 12:52:31 PM [facility] VIELKA MULLER Attending normal March 05, 2025 1:30:55 PM UT April 03, 2025 2:12:00 PM [facility] [id number] on March 27, 2025 12:52:31 PM [facility] VIELKA MULLER Admitting normal March 05, 2025 1:30:55 PM [facility] April 03, 2025 2:12:00 PM [facility] [id number] on March 27, 2025 12:52:31 PM [facility]
--- OUTSIDE RECORDS SUMMARY | 2025-04-14 00:29 | XMS_ITS | Clinical Summary ---
Author Organization [facility] Address [address] [place] [address] Care Team Providers Care Fence Machine Operator Name Role Phone Dejon Nova MD Primary Care Provider + [phone] Allergies Active Allergy Reactions Criticality Noted Date Comments Penicillins Unknown - Patient st ates they do not know rxn details Low 11/24/2021 Medications Vitamin D3 1.25 MG (83578 UT) capsule Take 1 capsule (50,000 Units) by mouth 1 (one) time per week. Takes on Saturdays 2 Active promethazine (Phenergan) 12.5 MG tablet Take 1 tablet (12.5 mg) by mouth every 8 (eight) hours if needed. 3 Active levothyroxine (Synthroid, Levoxyl) 125 MCG tablet Take 1 tablet (125 mcg) by mouth 1 (one) time each day. 4 Active Continuous Glucose Sensor (FreeStyle Christen 3 Sensor) [facility] USE AND REPLACE EVERY 15 DAYS 4 Active ondansetron (Zofran) 8 MG tablet Take 1 tablet (8 mg) by mouth 2 (two) times a day if needed. 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 11/06 Hypothyroidism 11/22/2023 Diabetes mellitus, type 2 11/22/2023 Brain mass 11/19/2023 Acquired absence of both breasts 11/01/2023 Breast carcinoma, female, left 08/01/2023 Breast cancer in female 08/01/2023 Recurrent breast cancer, left 07/05/2023 Malignant neoplasm of overla pping sites of left breast in female, estrogen receptor negative 11/24/2021 Cancer Staging:Clinical stage from 11/24/2021:Stage IIB(cT2, cN0, cM0, G3, ER-, ID-, HER2-) - Signed by Kori Alford on 11/24/2021 Pathologic stage from 05/28/2022: ypT1b, ypN0(sn), cM0, G3, ER-, ID-, HER2- - Signed by Kori Alford on 06/15/2022 Clinical stage from 02/07/2023:Stage IIB(rcT2, rcN0, rcM0, G3, ER-, ID-, HER2-) - Signed by Ofe Garcia MD on 05/17/2023 Pathologic stage from 08/16/2023:Stage IIA(rpT2, rpN0, rcM0, G3, ER-, ID-, HER2-) - Unsigned Resolved Problems Problem Noted Date Diagnosed Date Resolved Date Second hand smoke exposure 11/24/2021 0 01/27/2025 Encounters Date Type Department Care Team Description 02/19/2025 1:30 PM EDT Office Visit [facility] [address]nd [place] [address] Rin Sherwood, HOT DIE PRESS FEEDER Malignant neoplasm of overlapping sites of left breast in female, estrogen receptor negative (Primary Dx) 02/19/2025 Travel 02/04/2025 Orders Only External Location [address] [place] [address] Provider, External 01/17/2025 8:30 AM EDT Office Visit [facility] [address], [address]st [place] [address] Lebron Lopez MD Secondary malignant neoplasm of brain (CMS/HCC) (Primary Dx) 01/17/2025 Travel 01/13/2025 10:13 AM EDT - 01/13/2025 11:59 PM EDT Hospital Encounter [facility] [address] [place] [address] Secondary malignant neoplasm of brain (CMS/HCC); Malignant neoplasm of female breast, unspecified estrogen receptor status, unspecified laterality, unspecified site of breast Discharge Disposition: Home or Self Care 01/13/2025 Travel from Last 3 Months Family History Medical History Relation Name Comments Lung cancer Father Anesthesia problems Neg Hx Malig Hyperthermia Neg Hx Relation Name Status Comments Father Social History Tobacco Use Types Packs/Day Years [...] drink first t diego in the morning (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 0 11/19/2023 CAGE Questionnaire Score 0 024 Comments No Sex and Gender Information Value Date Recorded Sex Assigned at Not on file Legal Sex Female 6:18 PM EDT Gender Identity Not on file Sexual Orientation Not on file Last Filed Vital Signs Vital Sign Reading Time Taken Comments Blood Pressure 119/84 02/19/2025 1:24 PM EDT Pulse 60 02/19/2025 1:24 PM EDT Temperature 36.6 C (97.8 F) 10/19/2024 2:25 PM EDT Respiratory Rate 17 02/19/2025 1:24 PM EDT Oxygen Saturation 99% 02/19/2025 1:24 PM EDT Inhaled Oxygen Concentration - - Weight 89.8 kg (197 lb 15.6 oz) 02/19/2025 1:24 PM EDT Height 175.3 cm (5' 9 ) 02/19/2025 1:24 PM EDT Body Mass Index 29.24 02/19/2025 1:24 PM EDT Plan of Treatment Upcoming Encounters Date Type Department Care Team (Late st Contact Info) Description 05/30/2025 8:00 AM EST Appointment [facility] [address] [place] [phone] 05/30/2025 9:30 AM EST Office Visit [place] [facility] [address], [address] [place] [address] Lebron Lopez MD [address] [facility] [address] [place] [address] 02/12/2026 11:00 AM EDT Office Visit [facility] [address] [place] [address] Rin Sherwood, HOT DIE PRESS FEEDER [address] [facility] [address] [place] [address] Health Maintenance Due Date Last Done Comments [facility]-Infant/Child/Adol SDOH Screenings 1965 CYM-OBXSX-25 Vaccine (#1) 1970 Diabetes: Dental Exam 1975 [facility]- SDOH Screenings 1983 [facility]-Adult SDOH Screenings 1983 [facility]-DTaP,Tdap,and Td Vaccines (1 - Tdap) 1984 [facility]-Hepatitis A Vaccines (1 of 2 - Risk 2-dose series) 1984 [facility]-Hepatitis B Vaccines (1 of 3 - 19+ 3-dose series) 1984 [facility]-Pap Smear 1986 [facility]-Cervical Cancer Screening 1995 [facility]-HPV/Cotest 1995 CT Colonography 2010 Colonoscopy 2010 FIT-DNA 2010 FIT 2010 FOBT 2010 Sigmoidoscopy 2010 [facility]-Colorectal Cancer Screening 2010 [facility]-Diabetes: Hemoglobin A1C 02/20/2024 11/21/2023 [facility]-Influenza Vaccine (#1) 2025 [facility]-Depression Screening 08/21/2025 08/21/2024, 08/0 05/2023 [facility]-Pneumococcal Vaccine: 50+ Years Completed 09/20/2022 [facility]-Breast Cancer Screening Discontinued 12/14/2022, 0 11/24/2021 [facility]-HIV Screening Completed 11/21/2023 [facility]-Hepatitis C Screening Completed 11/21/2023 [facility]-Zoster Vaccines Completed 07/09/2024, [facility]-Obesity Intervention Completed 025, 11/01/2024, 10/19/2024, Additional history exists HPV Vaccines Aged Out No longer eligi ble based on patient's age to complete this topic [facility]-HIB Vaccines Aged Out No longer e ligible based on patient's age to complete this topic [facility]-IPV Vaccines Aged Out No longer e ligible based on patient's age to complete this topic [facility]-Rotavirus Vaccines Aged Out No lo nger eligible based on patient's age to complete this topic Medical Devices Implanted Type Area Dog Or Animal Sitter Device Identifier Shelf Expiration Date Model / Serial / Lot Port Clearvue Power 8fr - [id number] - [id number] Implanted:Qty: 1 on 11/30/2021 by Kori Alford MD at [facility] Right: Chest [employer]-[id number] 01/06/2023 [id number] / [id number] / [id number] Needle Wire Localization 20g 7cm X 20cm - [id number] Implanted:Qty: 1 on 05/28/2022 by Chuyita Brandon MD at [facility] Left: Breast [employer]-[id number] / / Graft Dura Repair 2x2 Synthecel - [id number] Implanted:Qty: 1 on 11/22/2023 by Ryan De Leon at [facility] Right: Brain [employer] [facility]-[id number] 11/05/2025 [id number] .[id number] / / [id number] Cover, Neuro Jessup Lp 17mm - [id number] Implanted:Qty: 1 on 11/22/2023 by Lebron Lopez MD at [facility] [employer] [facility]-[id number] 11/21/2024 [id number] / / Plate, 2 Hole Low Profile - [id number] Implanted:Qty: 2 on 11/22/2023 by Lebron Lopez MD at [facility] [employer] [facility]-[id number] 11/21/2024 [id number] / / Screw Ti Matrixneuro Selfdrill 4mm - [id number] Implanted:Qty: 8 on 11/22/2023 by Lebron Lopez MD at [facility] [employer] [facility]-11/21/2024 [id number] .[id number] / / Procedures Procedure Name Priority Date/Time Associated Diagnosis Comments PET OUTSIDE IMAGES 02/04/2025 10 :26 AM EDT MR HEAD W AND WO IV CONTRAST Routine 01/13/2025 12:00 PM EDT Secondary malignant neoplasm of brain (CMS/HCC) Malignant neoplasm of female breast, unspecified estrogen receptor status, unspecified laterality, unspecified site of breast HEMOGLOBIN A1C Add-On 11/21/2023 10:46 AM EDT HEPATITIS C ANTIBODY - ED W/REFLEX TO HCV QUANT PCR Routine 11/21/2023 4:34 AM EDT ED HIV 1/2 ANTIBODY/ANTIGEN SCREEN WITH REFLEX TO HIV I/II DIFFERENTIATION Routine 11/21/2023 4:34 AM EDT MAMMOGRAPHY BREAST DIAGNOSTIC TOMOSYNTHESIS BILATERAL Routine 12/14/2022 9:42 AM EDT Breast cancer (CMS/HCC) from Last 3 Months or Most Recently Relevant to Health Maintenance Results * PET OUTSIDE IMAGES (02/04/2025 10:26 AM EDT) Anatomical Region Laterality Modality Nuclear Medicine 02/04/2025 10:2 6 AM EDT us External Provider IMG NM PROCEDURES Edited Resul t - Final * MR Head w and wo IV Contrast (01/13/2025 12:00 PM EDT) Anatomical Region Laterality Modality Head Magnetic Resonan ce Impressions 01/13/2025 8:49 PM EDT Increased size of the patchy enhancement just deep to the margin of the right cerebellar resection cavity. New punctate focus of enhancement within the medial left cerebellum. CRITICAL RESULT: No. COMMUNICATION: Per this written report. Drafted by Krystyna Mclean on 01/13/2025 8:42 PM Final report signed by Krystyna Mclean on 01/13/2025 8:49 PM Narrative 01/13/2025 8:49 PM EDT CLINICAL INDICATION: Metastases, assess treatment response TECHNIQUE: Multiplanar multiecho sequences were performed through the brain utilizing T1 and T2 weighting, as well as either axial susceptibility weighted or gradient echo sequences, and axial diffusion weighted images. A coronal post-contrast 1mm thick T1-weighted 3D MP RAGE sequence was performed and multiplanar reformatted images were created. Imaging was performed with and without contrast administration: 8.9 mL of Gadavist. COMPARISON: MRI brain 11/01/2024 FINDINGS: Diagnostic Quality: Adequate. Post surgical changes from prior right suboccipital craniotomy for resection of posterior right cerebellar lesion. The small patchy area of enhancement just deep to the margin of the resection cavity is increased in size. This measures 10 x 7 mm, previously 9 x 5 mm. There is subtle increase in the associated FLAIR signal. There is also a punctate focus of enhancement within the left cerebellum, not definitely seen previously. Minimal chronic microvascular changes of the white matter otherwise, stable. The ventricles and sulci are normal in size. Other than susceptibility at the resection site, there is no susceptibility elsewhere to suggest intracranial hemorrhage. No restricted diffusion to suggest acute ischemic change. Vascular Flow Voids: Normal. Paranasal Sinuses and Mastoid Air Cells: Grossly clear. Orbits: No definite masses within the limitations of the study. Extracranial Findings: None. Procedure Note Krystyna Mclean MD - 01/13/2025 CLINICAL INDICATION: Metastases, assess treatment response TECHNIQUE: Multiplanar multiecho sequences were performed through the brain utilizingT1 and T2 weighting, as well as either axial susceptibility weighted orgradient echo sequences, and axial diffusion weighted images. A coronalpost-contrast 1mm thick T1- weighted 3D MP RAGE sequence was performed andmultiplanar reformatted images were created. Imaging was performed withand without contrast administration: 8.9 mL of Gadavist. COMPARISON: MRI brain 11/01/2024 FINDINGS: Diagnostic Quality: Adequate. Post surgical changes from prior right suboccipital craniotomy forresection of posterior right cerebellar lesion. The small patchy area ofenhancement just deep to the margin of the resection cavity is increasedin size. This measures 10 x 7 mm, previously 9 x 5 mm. There is subtleincrease in the associated FLAIR signal. There is also a punctate focus ofenhancement within the left cerebellum, not definitely seen previously. Minimal chronic microvascular changes of the white matter otherwise,stable. The ventricles and sulci are normal in size. Other than susceptibility at the resection site, there is nosusceptibility elsewhere to suggest intracranial hemorrhage. No restricteddiffusion to suggest acute ischemic change. Vascular Flow Voids: Normal. Paranasal Sinuses and Mastoid Air Cells: Grossly clear. Orbits: No definite masses within the limitations of the study. Extracranial Findings: None. IMPRESSION: Increased size of the patchy enhancement just deep to the margin of theright cerebellar resection cavity. New punctate focus of enhancement within the medial left cerebellum. CRITICAL RESULT: No. COMMUNICATION: Per this written report. Drafted by Krystyna Mclean on 01/13/2025 8:42 PM Final report signed by Krystyna Mclean on 01/13/2025 8:49 PM Lebron Lopez MD IM MRI PROCEDURES Final Resul t * (ABNORMAL) Hemoglobin A1c (11/21/2023 10:46 AM EDT) Hemoglobin A1c 9.6(H) <5.7 % 11/21/2023 5:40 PM EDT [facility] Blood Blood sample taken from central line / Unknown (Port) Long-term Catheter / Unknown 11/21/2023 10:46 AM EDT 11/21/2023 11:41 AM EDT Narrative [facility] - 11/21/2023 5:40 PM EDT HA1C Interpretive Data: Diagnosis of Diabetes: Diabetic > or = 6.5% Pre-diabetic 5.7 to 6.4% Non-diabetic < or = 5.6% Glycemic Targets for Type I and Type II Diabetics: Non- Adults <7.0% Adults <6.0% Children and Adolescents <7.5% Source: [place] [employer]. Standards of medical care in diabetes,2017. Diabetes Care.2017:40 (suppl 1):S1-S135. HbA1c assay performed by an ion-exchange chromatography method that is certified traceable to the DCCT. Garett Morgan MD LAB BLOOD ORDERABLES Final Resul t Performing Organization Address [facility] de Phone Number [facility] [address] [place] [address] * ED HIV 1/2 Antibody/Antigen Screen w/Reflex to HIV 1/2 Differentiation (11/21/2023 4:34 AM EDT) HIV 1 & 2 Antibody/Antigen Screen Non Reactive Non Reactive 11/21/2023 5:37 AM EDT [facility] Comment:Screening for HIV 1 & 2 antibodies, and P24 antigen is NONREACTIVE. No confirmatory testing is required. Blood Venous blood specimen / Unknown Venipuncture / Unknown 11/21/2023 4:34 AM EDT 11/21/2023 4:54 AM EDT Garett Morgan MD LAB BLOOD ORDERABLES Final Resul t Performing Organization Address [facility] Co de Phone Number [facility] [address] [place] [address] * Hepatitis C Antibody - ED (11/21/2023 4:34 AM EDT) Hepatitis C Antibody Negative Negative 11/21/2023 5:35 AM EDT [facility] Blood Venous blood specimen / Unknown Venipuncture / Unknown 11/21/2023 4:34 AM EDT 11/21/2023 4:53 AM EDT Garett Morgan MD LAB BLOOD ORDERABLES Final Resul t [facility] [address] [place] [address] * Mammography Breast Diagnostic Tomosynthesis Bilateral (12/14/2022 9:42 AM EDT) Anatomical Region Laterality Modality Breast Bilateral Mammography Impressions 12/14/2022 10:12 AM EDT BI-RADS Code: BI-RADS 2. Benign finding. RECOMMENDATIONS: Diagnostic Mammogram in 1 Year CRITICAL RESULT: No. COMMUNICATION: The results and recommendations were discussed with the patient and a printed lay language version of the imaging report was given to the patient at the time of the visit. The mammogram was read with the assistance of CAD and tomosynthesis. Drafted by Chuyita Brandon MD on 12/14/2022 10:10 AM Final report signed by Chuyita Brandon MD on 12/14/2022 10:12 AM Narrative 12/14/2022 10:12 AM EDT CLINICAL INDICATION: Personal history of breast cancer status post left lumpectomy May 28, 2022 TECHNIQUE: Bilateral diagnostic mammogram was performed. Computer assisted detection was used in the interpretation of this study. Tomosynthesis was used in the interpretation of this study. COMPARISON: 05/28/2022, 11/24/2021, 10/26/2021, 10/06/2021, and 12/28/2018 FINDINGS: Breast Density: Scattered fibroglandular density Findings: There are no suspicious masses, calcifications, or areas of architectural distortion in the right breast. New post lumpectomy changes in the inferior left breast with skin and trabecular thickening secondary to radiation therapy. There are no new suspicious masses, calcifications, or areas of architectural distortion in the left breast. Procedure Note Chuyita Brandon MD - 12/14/2022 CLINICAL INDICATION: Personal history of breast cancer status post left lumpectomy May TECHNIQUE: Bilateral diagnostic mammogram was performed. Computer assisted detection was used in the interpretation of this study.Tomosynthesis was used in the interpretation of this study. COMPARISON: 05/28/2022, 11/24/2021, 10/26/2021, 10/06/2021, and 12/28/2018 FINDINGS: Breast Density: Scattered fibroglandular density Findings: There are no suspicious masses, calcifications, or areas of architecturaldistortion in the right breast. New post lumpectomy changes in the inferior left breast with skin andtrabecular thickening secondary to radiation therapy. There are no newsuspicious masses, calcifications, or areas of architectural distortion inthe left breast. IMPRESSION: BI-RADS Code: BI-RADS 2. Benign finding. RECOMMENDATIONS: Diagnostic Mammogram in 1 Year CRITICAL RESULT: No. COMMUNICATION: The results and recommendations were discussed with the patient and aprinted lay language version of the imaging report was given to thepatient at the time of the visit. The mammogram was read with theassistance of CAD and tomosynthesis. Drafted by Chuyita Brandon MD on 12/14/2022 10:10 AM Final report signed by Chuyita Brandon MD on 12/14/2022 10:12 AM Kori Alford MD IMG BI PROCEDURES Final Result from Last 3 Months or Most Recently Relevant to Health Maintenance Insurance [employer] MEDICAID Advance Directives * Full Code (Latest Code Status on File) Date Activated Date Inactivated Comments 11/19/2023 9:15 PM 11/23/2023 7:36 PM Question Answer Comments Patient has decision-making capacity? Yes * Full Code Date Activated Date Inactivated Comments 08/01/2023 1:02 PM 08/02/2023 1:21 PM Question Answer Comments Patient has decision-making capacity? Yes Care Teams Fence Machine Operator Relationship Specialty Start Date End Date Dejon Nova MD [address] [place] [address] PCP - General Internal Medicine 11/11/21
--- OUTSIDE RECORDS SUMMARY | 2025-04-14 00:29 | XMS_ITS | Encounter Summary ---
Author Organization Healthcare Address [address] [place] [address] Care Team Providers Care Assistant Sales Manager Name Role Phone Dejon Nova MD Primary Care Provider + [phone] Encounter Details Date Type Department Care Team (Late st Contact Info) Description 02/10/2023 Lab Requisition [facility] [address] [place] [phone] Elvis Baldwin MD [address] [address] Malignant neoplasm of central portion of left female breast (CMS/HCC) Social History Tobacco Use Types Packs/Day Years Used Date Smoking Tobacco: Never Smokeless Tobacco: Never Alcohol Use Standard Drinks/Week Comments Yes 0 (1 standard drink = 0.6 oz pur e alcohol) social drinker Comments No Sex and Gender Information Value Date Recorded Sex Assigned at Not on file Legal Sex Female 6:18 PM EDT Gender Identity Not on file Sexual Orientation Not on file documented as of this encounter Plan of Treatment Upcoming Encounters Date Type Department Care Team (Late st Contact Info) Description 05/30/2025 8:00 AM EST Appointment [facility] [address] [place] [phone] 05/30/2025 9:30 AM EST Office Visit [place] [facility] [address], [address] [place] [address] Lebron Lopez MD [address] [place] [address] 02/12/2026 11:00 AM EDT Office Visit [facility] [address] [place] [address] Rin Sherwood, COLOR BUFFER [address] [place] [address] documented as of this encounter Procedures Procedure Name Priority Date/Time Associated Diagnosis Comments AP MISCELLANEOUS LAB TEST (SO) Routine 02/07/2023 8:26 AM EDT Malignant neoplasm of central portion of left female breast (CMS/HCC) documented in this encounter Results * AP Miscellaneous Lab Test (02/07/2023 8:26 AM EDT) Test name PD-L1 CPS ARUP 02/21/2023 2:46 PM EDT [facility] Comment:[id number] A1 Test Result see scan 02/21/2023 2:46 PM EDT [facility] See Scanned Result 02/21/2023 2:46 PM EDT [facility] Tissue 02/07/2023 8:26 AM EDT 02/10/2023 2:54 PM EDT Elvis Baldwin MD LAB REF LAB BLOOD AND FLUID ORD Final Result [facility] documented in this encounter Visit Diagnoses Diagnosis Malignant neoplasm of central portion of left female breast documented in this encounter Additional Health Concerns Assessment Noted Time A fall risk assessment has been complete d for the patient 12/14/2022 11:33 AM EDT A Body Mass Index follow-up plan has been documented for the patient 06/15/2022 11:42 AM EST documented as of this encounter Care Teams Assistant Sales Manager Relationship Specialty Start Date End Date Dejon Nova MD [address] [place] [address] PCP - General Internal Medicine 11/11/21 documented as of this encounter
--- OUTSIDE RECORDS SUMMARY | 2025-04-14 00:29 | XMS_ITS | Encounter Summary ---
Author Organization Healthcare Address [address] 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) to steady your nerves or to get [...] EST Appointment [facility] [address] [place] [address] 05/30/2025 9:30 AM EST Office Visit [place] [facility] [address], [address] [place] [address] Lebron Lopez MD [address] [place] [address] 02/12/2026 11:00 AM EDT Office Visit [facility] [address] [place] [phone] Rin Sherwood, PROCESS DEVELOPMENT ENGINEER [address] [place] [phone] documented as of this encounter Procedures Procedure Name Priority Date/Time Associated Diagnosis Comments PET OUTSIDE IMAGES 02/04/2025 10:26 AM EDT documented in this encounter Results * PET OUTSIDE IMAGES (02/04/2025 10:26 AM EDT) Anatomical Region Laterality Modality Nuclear Medicine 02/04/2025 10:2 6 AM EDT us External Provider IMG NM PROCEDURES Edited Resul t - Final documented in this encounter Visit Diagnoses Not on filedocumented in this encounter Additional Health Concerns Assessment Noted Time PHQ-9 Depression Total Score: 3 12/08/19 24 10:00 AM EDT A fall risk assessment has been complete d for the patient 01/17/2025 8:18 AM EDT A Body Mass Index follow-up plan has been documented for the patient 01/17/2025 12:44 PM EDT documented as of this encounter Care Teams Stripper Preliminary Relationship Specialty Start Date End Date Dejon Nova MD [address] [place] [address] PCP - General Internal Medicine 11/11/21 documented as of this encounter
--- OUTSIDE RECORDS SUMMARY | 2025-04-14 00:29 | XMS_ITS ---
Author Organization [facility] Address [address] [place] [address] Care Team Providers Care Rail Car Operator Name Role Phone Dejon Nova MD Primary Care Provider + [phone] Active Problems Problem Noted Date Diagnosed Date [...] from 11/24/2021:Stage IIB(cT2, cN0, cM0, G3, ER-, MS-, HER2-) - Signed by Kori Alford on 11/24/2021 Pathologic stage from 05/28/2022: ypT1b, ypN0(sn), cM0, G3, ER-, MS-, HER2- - Signed by Kori Alford on 06/15/2022 Clinical stage from 02/07/2023:Stage IIB(rcT2, rcN0, rcM0, G3, ER-, MS-, HER2-) - Signed by Ofe Garcia MD on 05/17/2023 Pathologic stage from 08/16/2023:Stage IIA(rpT2, rpN0, rcM0, G3, ER-, MS-, HER2-) - Unsigned Current Treatment and Therapy Plans No current plan information found. Past Treatment and Therapy Plans No past plan information found. Lifetime Dose Tracking * Chemical Lifetime Dose Automatic Entry Manual Entr y Fluoro Time 0.12 minutes 0.12 minutes 0 minutes Air Kerma 2.6 mGy 2.6 mGy 0 mGy Resolved Problems Problem Noted Date Diagnosed Date Resolved Date Second hand smoke exposure 11/24/2021 0 01/27/2025
--- OUTSIDE RECORDS SUMMARY | 2025-04-14 00:29 | XMS_ITS | Encounter Summary ---
Author Organization Healthcare Address [address] [place] [address] Care Team Providers Care Shop Tailor Apprentice Name Role Phone Dejon Nova MD Primary Care Provider [phone] Encounter Details Date Type Department Care Team (Latest Contact Info) Description 02/19/2025 Travel Social History Tobacco Use Types Packs/Day Years [...] drink first t diego in the morning (EYE-DETAIL ASSEMBLER) to steady your nerves or to get [...] EST Appointment [facility] [address] [place] [address] 05/30/2025 9:30 AM EST Office Visit [place] [facility] [address], [address] [place] [address] Lebron Lopez MD [address] [place] [address] 02/12/2026 11:00 AM EDT [facility] Visit [facility] [address] [place] [address] Rin Sherwood, SHAKER REPAIRER [address] [place] [address] documented as of this encounter Visit Diagnoses Not on filedocumented [...] documented as of this encounter Care Teams Shop Tailor Apprentice Relationship Specialty Start Date End Date Dejon Nova MD [address] [place] [address] PCP - General Internal Medicine 11/11/21 documented as of this encounter
--- NOTE | 2025-04-14 00:30 | ECG_ITS ---
APPROVED REPORT Exam: Resting ECG HR:114 bpm ECG Measurements Heart Rate 114 AXES WV 153 P 55 QRSd 97 QRS -19 QT 308 T 100 QTc 375 Conclusion SINUS TACHYCARDIA NONSPECIFIC T-WAVE ABNORMALITY No STEMI Electronically signed by : MARSHALL KELLOGG, 04/15/2025 07:49:41
--- OUTSIDE RECORDS SUMMARY | 2025-04-14 00:30 | XMS_ITS | Encounter Summary ---
Author Organization Healthcare Address [address] [place] [address] Care Team Providers Care Press Shop Supervisor Name Role Phone Dejon Nova MD Primary Care Provider + [phone] Encounter Details Date Type Department Care Team (Late st Contact Info) Description 11/13/2021 Lab Requisition [facility] Lab [address] [place] [address] Kori Alford MD [address] [place] [address] Unspecified lump in the left breast, unspecified quadrant Social History Tobacco Use Types Packs/Day Years Used Date Smoking Tobacco: Never Assessed Comments Unknown Sex and Gender Information Value Date Recorded Sex Assigned at Not on file Legal Sex Female 6:18 PM EDT Gender Identity Not on file Sexual Orientation Not on file documented as of this encounter Plan of Treatment Upcoming Encounters Date Type Department Care Team (Late Contact Info) Description 05/30/2025 8:00 AM EST Appointment [facility] [address] [place] [address] 05/30/2025 9:30 AM EST Office Visit [place] [facility] [address] [place] [address] Lebron Lopez MD [address] [place] [address] 02/12/2026 11:00 AM EDT Office Visit [facility] [address] [facility]nd [place] [address] Rin Sherwood, SLASHER TENDER HELPER [address] [facility] [address] [place] [address] documented as of this encounter Procedures Procedure Name Priority Date/Time Associated Diagnosis Comments SURGICAL PATHOLOGY CONSULT Routine 11/13/2021 9:00 AM EDT Unspecified lump in the left breast, unspecified quadrant documented in this encounter Results * Surgical Pathology Consult (11/13/2021 9:00 AM EDT) Case Report Sugical Pathology Consult Case: [id number] Authorizing Provider: Kori Alford MD Collected: 11/13/2021 0900 Ordering Location: [facility] Lab Received: 11/13/2021 09 Pathologist: Jessica Schmid MD Specimen: Breast, Left, [id number] 2 10:45 AM EDT [facility] Final Diagnosis LEFT BREAST, 6:00, ULTRASOUND GUIDED CORE NEEDLE BIOPSY FOR MASS (OUTSIDE CASE: [id number]; 10/30/2021): - INVASIVE DUCTAL CARCINOMA, poorly differentiated ([place] grade III/III: tubule score=3, nuclear score=3, mitoses score=3), with necrosis, measuring up to 1.2 cm. - No lymphovascular invasion or in situ carcinoma identified. 2 10:45 AM EDT [facility] at 1045 EDT Clinical Information N63.20 - Unspecified lump in the left breast, unspecified quadrant [ICD-10-CM] 2 10:45 AM EDT [facility] Special and Immunohistochemical Stains Immunostains were performed at the outside institution with the following results for the invasive carcinoma (reviewed): - ESTROGEN RECEPTOR: NEGATIVE (0%) - PROGESTERONE RECEPTOR: NEGATIVE (0%) - HER2/OLEGARIO: NEGATIVE (1+) There are no internal controls to evaluate for estrogen and progesterone receptors. On-slide external controls reacted appropriately. 2 10:45 AM EDT [facility] Gross Description A. [id number] Received along with a corresponding pathology report from [facility] are 6 slides labeled outside case: [id number] collected on 10/30/2021. 2 10:45 AM EDT [facility] Tissue Left breast structure / Unknown 11/13/2021 9:00 AM EDT 11/13/2021 9:00 AM EDT us Kori Alford MD LAB PATHOLOGY ORDERABLES Final Result [facility] [address] [place] [address] documented in this encounter Visit Diagnoses Diagnosis Unspecified lump in the left breast, unspecified quadrant documented in this encounter Care Teams Press Shop Supervisor Relationship Specialty Start Date End Date Dejon Nova MD [address] [place] [address] PCP - General Internal Medicine 11/11/21 documented as of this encounter
--- OUTSIDE RECORDS SUMMARY | 2025-04-14 00:30 | XMS_ITS | Encounter Summary ---
Author Organization [facility] Address [address] [place] [address] Care Team Providers Care Cna Hha Name Role Phone Dejon Nova MD Primary Care Provider [phone] Reason for Referral * Consultation (Routine) - Closed Specialty Diagnoses / Procedures Referred By Contac t Referred To Contact Oncology Diagnoses Invasive ductal carcinoma of breast, female, left Dejon Nova MD [address] [address] Phone: tel: fax: Referral ID Status Reason Start Date Expiration Date V isits Requested Visits Authorized [id number] Closed Specialty Services Required 11/10/2021 05/12/2023 1 1 Encounter Details Date Type Department Care Team (Late st Contact Info) Description 11/10/2021 Community [facility] [address] [place] [address] Dejon Nova MD [address] [place], [place] [address] [address] [address] Invasive ductal carcinoma of breast, female, left (CMS/HCC) (Primary Dx) Social History Tobacco Use Types [...] EST Appointment [facility] [address] [place] [address] 05/30/2025 9:30 AM EST Office Visit [place] [facility] [address] [place] [address] Lebron Lopez MD [address] [place] [address] 02/12/2026 11:00 AM EDT [facility] [address] [place] [address] Rin Sherwood, NOCTURNIST [address] [place] [address] Scheduled Referrals Name Type Priority Associated Diagnoses Order Schedule Ambulatory referral to Medical Oncology Outpatient Referral Routine Invasive ductal carcinoma of breast, female, left (CMS/HCC) Expected: 11/10/2021 (Approximate), Expires: 05/13/2023 documented as of this encounter Visit Diagnoses Diagnosis Invasive ductal carcinoma of breast, female, left- Primary documented in this encounter Care Teams Cna Hha Relationship Specialty Start Date End Date Deojn Nova MD [address] [place] [address] PCP - General Internal Medicine 11/11/21 documented as of this encounter
--- OUTSIDE RECORDS SUMMARY | 2025-04-14 00:30 | XMS_ITS | Encounter Summary ---
Author Organization Healthcare Address [address] [place] [address] Care Team Providers Care Biometrics Technician Name Role Phone Dejon Nova MD Primary Care Provider + [phone] Encounter Details Date Type Department Care Team (Late st Contact Info) Description 01/12/2024 Lab Requisition [facility] [address] [place] [address] Elvis Baldwin MD [address] [address] Malignant neoplasm of lower-outer quadrant of right female breast (CMS/HCC) Social History Tobacco Use Types Packs/Day Years Used Date Smoking Tobacco: Never Passive Smoke Exposure: Never Smokeless Tobacco: Never Alcohol Use Standard Drinks/Week Comments Yes 0 (1 standard drink = 0.6 oz pur e alcohol) social drinker PHQ-2 Answer Date Recorded Patient Health Questionnaire-2 Score 0 12/08/2023 PHQ-9 Answer Date Recorded Patient Health Questionnaire-9 [...] drink first t diego in the morning (EYE-COSMETIC COUNSELOR) to steady your nerves or to get [...] Description 05/30/2025 8:00 AM EST Appointment [facility] [address] [place] [address] 05/30/2025 9:30 AM EST Office Visit [place] [facility] [address], [address] [place] [address] Lebron Lopez MD [address] [facility] [address] [place] [address] 02/12/2026 11:00 AM EDT Office Visit [facility] [address] [place] [address] Rin Sherwood M, EDITORIAL SPECIALIST [address] [facility] [address] [place] [address] documented as of this encounter Procedures Procedure Name Priority Date/Time Associated Diagnosis Comments AP MISCELLANEOUS LAB TEST (SO) Routine 01/12/2024 4:57 PM EDT Malignant neoplasm of lower-outer quadrant of right female breast (CMS/HCC) documented in this encounter Results * - AP Miscellaneous Test (01/12/2024 4:57 PM EDT) Test name Deonte Mercado 04/18/2024 2:15 PM [facility] Comment: Test Result [id number] A2 04/18/2024 2:15 PM [facility] See Scanned Result 04/18/2024 2:15 PM [facility] Tissue 01/12/2024 4:57 PM EDT 01/12/2024 5:07 PM EDT us Elvis Baldwin MD LAB REF LAB BLOOD AND FLUID ORD Final Result [facility] documented in this encounter Visit Diagnoses Diagnosis Malignant neoplasm of lower-outer quadrant of right female breast documented in this encounter Additional Health Concerns Assessment Noted Time PHQ-9 Depression Total Score: 3 12/08/19 24 10:00 AM EDT A fall risk assessment has been complete d for the patient 12/08/2023 9:15 AM EDT A Body Mass Index follow-up plan has been documented for the patient 12/08/2023 12:00 PM EDT documented as of this encounter Care Teams Biometrics Technician Relationship Specialty Start Date End Date Dejon Nova MD [address] [place] [address] PCP - General Internal Medicine 11/11/21 documented as of this encounter
--- NOTE | 2025-04-14 00:35 | CT_ITS ---
PROCEDURE INFORMATION: Exam: CT Abdomen And Pelvis With Contrast Exam date and time: 04/14/2025 1:20 AM Age: 59 years old Clinical indication: Nausea and vomiting; Abdominal pain; Epigastric; Additional info: Epigastric pain, n/v, current cancer PT recieving chemo TECHNIQUE: Imaging protocol: Computed tomography of the abdomen and pelvis with contrast. Radiation optimization: All CT scans at this facility use at least one of these dose optimization techniques: automated exposure control; mA and/or kV adjustment per patient size (includes targeted exams where dose is matched to clinical indication); or iterative reconstruction. Contrast material: ISOVUE; Contrast volume: 75 ml; Contrast route: IV; COMPARISON: CR XR HIP LT 2-3V W/PELVIS 01/11/2024 10:21 AM FINDINGS: Tubes, catheters and devices: Central venous catheter is noted with the tip positioned in the central superior vena cava. Lungs: There are few linear densities present suggesting subsegmental atelectasis and/or scarring. Pleural spaces: There is a trace right pleural effusion. Liver: The liver is significantly enlarged. There is severe steatosis present. Multiple lesions are noted which are hyperdense relative to the severe fatty infiltration consistent with metastatic disease. Several of the lesions coalesce within the inferior right hepatic lobe measuring nearly 10 cm in size. Gallbladder and biliary ducts: The gallbladder is absent. No biliary ductal dilation is noted. Pancreas: The pancreatic head neck and proximal body are poorly visualized due to the gland in lymphadenopathy. Posterior body and tail unremarkable. No ductal dilation is evident. Spleen: Normal. No splenomegaly. Adrenal glands: Normal. No mass. Kidneys and ureters: The left kidney demonstrates unobstructed function. There is jurb-zg-mbzcepau right hydronephrosis with obstruction of the proximal right ureter likely secondary to metastatic disease. Stomach and bowel: No bowel obstruction. Appendix: No evidence of appendicitis. Intraperitoneal space: There is mild pelvic ascites. Vasculature: Unremarkable. No abdominal aortic aneurysm. Lymph nodes: There is significant mediastinal and hilar lymphadenopathy within the imaged portions of the chest with nodes measuring up to 3 cm in size. There is significant retroperitoneal lymphadenopathy involving the left para-aortic and aortocaval regions. There is a large jose conglomerate in the edward hepatis region measuring up to 6 cm in size. Urinary bladder: Unremarkable as visualized. Reproductive: There is a 3.5 cm right adnexal mass likely representing a peritoneal metastasis. Bones/joints: Unremarkable. No acute fracture. Soft tissues: Unremarkable. IMPRESSION: 1. Obstruction of the proximal right ureter likely secondary to metastatic disease causing eddf-fy-iljjtcoi hydronephrosis. 2. Significant metastatic disease involving the mediastinum, bilateral larry, liver, upper abdominal and retroperitoneal lymph nodes and pelvic mesentery. 3. Trace right pleural effusion. 4. Mild pelvic ascites.
--- NOTE | 2025-04-14 00:35 | XR_ITS ---
PROCEDURE INFORMATION: Exam: XR Chest Exam date and time: 04/14/2025 1:30 AM Age: 59 years old Clinical indication: Pain; Other: Nasuea; Other: Epigastric; Additional info: Epigastric pain nausea, current cancer PT recieving chemo TECHNIQUE: Imaging protocol: Radiologic exam of the chest. Views: 1 view. COMPARISON: CT ABDOMEN PELVIS W CON 04/14/2025 1:20 AM FINDINGS: Tubes, catheters and devices: A right internal jugular vein Pfixjy-G-Oagh is noted with the catheter tip projecting over the central superior vena cava. Lungs: No focal consolidation or pulmonary mass. Pleural spaces: Unremarkable. No pleural effusion. No pneumothorax. Heart/Mediastinum: Bilateral hilar prominence correlating with the significant lymphadenopathy noted on the CT exam. Vasculature: Unremarkable. Bones/joints: Unremarkable. IMPRESSION: 1. No focal consolidation or overt failure. 2. Perihilar prominence correlating with lymphadenopathy noted on CT exam.
[2025-04-14 00:40] VITALS: BP 132/78; PULSE 91; RESP 18; TEMP 36.6; O2SAT 98; BMI 25.0
[2025-04-14 00:46] LABS: Hematocrit 31.1 % (37.0-47.0); Hemoglobin 10.3 g/dL (12.2-16.2); Immature Granulocytes % 1.1 %; Mean Corpuscular HGB Conc 33.1 g/dL (31.8-35.4); Mean Corpuscular Hemoglobin 29.5 pg (27.0-31.2); Mean Corpuscular Volume 89.1 fl (81-99); Nucleated Red Blood Cells % 0 %; Platelet Count 461 K/mm3 (142-424); Red Blood Count 3.49 M/mm3 (4.20-5.40); Red Cell Distribution Width-SD 56.3 fL; White Blood Count 2.8 K/mm3 (4.8-10.8)
[2025-04-14 00:47] VITALS: BP 132/78; PULSE 91; RESP 18; TEMP 37.2; O2SAT 98
[2025-04-14 01:08] LABS: Alanine Aminotransferase 73 U/L (12-78); Albumin Level 3.1 g/dl (3.5-5.0); Albumin/Globulin Ratio 0.8 (1.1-1.8); Alkaline Phosphatase 630 U/L (38-126); Anion Gap 10.6 mEq/L (5-15); Aspartate Amino Transferase 160 U/L (14-36); Bilirubin,Total 0.9 mg/dl (0.2-1.3); Blood Urea Nitrogen 17 mg/dl (7-17); Calcium 8.9 mg/dl (8.4-10.2); Carbon Dioxide 24 mmol/L (22.0-30.0); Chloride 100 mmol/L (98-107); Creatinine Clearance Estimated 60 mL/min (50-200); Creatinine,Serum 1.20 mg/dl (0.52-1.04); Estimated Glomerular Filt Rate 46 ml/min (>60); GFR (African American) 56 ML/MIN (>60); Globulin 3.9 g/dL (1.3-3.2); Glucose 145 mg/dl (74-100); Lipase 54 U/L (23-300); Potassium 3.6 mmoL/L (3.5-5.1); Sodium 131 mmol/L (136-145); Total Protein,Serum 7.0 g/dl (6.3-8.2)
[2025-04-14 01:21] LABS: Troponin I < 0.01 ng/ml (0.00-0.034)
[2025-04-14] MEDS: LACTATED RINGERS 1000ML 1,000 ML 999 ML IV (01:37)
[2025-04-14] MEDS: PROMETHAZINE HCL 25MG/ML 1ML VIAL 12.5 MG IV (01:37)
[2025-04-14] MEDS: SODIUM CHLORIDE 0.9% 25ML BAG 25 ML IV (01:37)
[2025-04-14] MEDS: IOPAMIDOL-370 (76%);100ML BOTTLE 75 ML IV (01:38)
[2025-04-14] MEDS: SODIUM CHLORIDE 0.9% 10ML SYR (RAD ONLY) 10 ML IV (01:38)
[2025-04-14 01:53] LABS: INR 1.19 (0.9-1.1); Prothrombin Time 13.0 seconds (10.1-12.5)
--- NOTE | 2025-04-14 02:06 | HMH.EDGENADL ---
Discharge Plan Disposition Patient Disposition: Home, Self-Care Condition: Fair Prescriptions Prescriptions: No Action levothyroxine [Euthyrox] 88 mcg tablet 88 mcg PO Patient Comments: TAKE 1 TABLET BY MOUTH ONCE DAILY Clenpiq 10 mg-3.5 gram- 12 gram/160 mL solution 160 ml PO DAILY Qty: 350 0RF Rx Instructions: take first dose at 5-9PM evening before colonoscopy; 2nd dose the next day approximately 5 hrs before colonoscopy Referrals Follow up/Referrals: Dejon Nova MD [Primary Care Provider, Internal Medicine] - See instructions Activity Restrictions/Add. Instructions Additional Instructions/Restrictions: You were evaluated in the ER and are believed to be appropriate for discharge at this time. Continue taking all home medications as previously prescribed. Use your prescribed Zofran or Phenergan as previously directed to manage nausea. Continue drinking plenty of fluids and use nutrition/protein shakes to maintain good nutritional status. As discussed, call your oncology team first thing Tuesday morning and make an appointment for immediate follow-up to discuss the findings on your CT including metastatic disease involving the right kidney/ureter and pelvic area Return to the ER with any new, worsening, or otherwise concerning symptoms as previously discussed. Clinical Impressions Clinical Impression: Metastatic cancer, Hydronephrosis, Nausea & vomiting, Acidosis, lactic Instructions Patient Instructions: DI for Acute Abdominal Pain Print Language Print Language: [place] Discharge ED Provider: Shelley Chang Adult HPI General Chief complaint: Abdominal Pain Stated complaint: pressure across chest, vomiting Time Seen by Provider: 04/14/25 00:21 Mode of Arrival: Ambulatory Source of Information: Patient Description of Symptoms (Recalled from ER Triage Doc. by RN): Patient states around 1430 she began having gastric pressure. States it is in the RUQ. States it is more of a pressure, than a pain. Reports a normal bowel movement today. States around 2129 she began feeling nauseous, states she vomitted today around 2129. States the pressure did not go away. States she is a cancer patient, which she is receiving chemo from at [facility]. Reports she recently started a new chemo in and it has made her more sick than usual. Denies fever, or chills. History of Present Illness HPI narrative: 59-year-old female presents to the ER complaining of 8 to 9 hours of epigastric and right upper quadrant pressure. She has known metastatic breast cancer including lesions in the liver for which she is currently undergoing chemo, her last treatment was 2-1/2 weeks ago. Patient states approximately an hour and a half after her symptoms began she drink a protein shake but 4 hours after drinking that protein shake she vomited the protein shake back up. Last bowel movement was today, normal consistency. She denies fevers, chills, chest pain, or difficulty breathing. She states she does not truly have pain but has pressure from the right upper quadrant radiating to the middle of the abdomen. She states she took Phenergan a few hours prior to arrival which did not relieve her symptoms. Reports her most recent WBC was 2.5 a few days ago. Has a port in the right upper chest. Denies dysuria or hematuria. Denies other associated symptoms. Related Data Home Medications ?Medication ?Instructions ?Recorded ?Confirmed levothyroxine 88 mcg tablet 88 mcg PO 10/21/21 02/07/23 (Euthyrox) Previous Rx's ?Medication ?Instructions ?Recorded sod picosulf 10 mg-magnes 3.5 160 ml PO DAILY 2 doses #350 mL 03/18/23 gram-citric 12 gram/160 mL oral solution (Clenpiq) Allergies Allergy/AdvReac Type Severity Reaction Status Date / Time Penicillins (PENICILLINS) Allergy Unknown Verified 02/07/23 13:28 [facility] Disclaimer: The information contained in this section may have been updated after the patient was seen, as this information can be updated by other users. Medical History (Updated 04/14/25 @ 03:07 by Shelley Chang MD) Breast cancer Surgical History (Updated 02/07/23 @ 13:29 by BRETT Ash) History of lumpectomy of left breast Family History (Updated 02/07/23 @ 13:29 by BRETT Ash) Other No significant family history Social History (Updated 02/07/23 @ 13:29 by BRETT Ash) Smoking Status: Never smoker alcohol intake: current alcohol intake frequency: holidays/special occasions only substance use type: denies use current occupational status: employed Travel in the last 8 weeks?: None housing: house Have you lived/traveled outside [place] in past 30 days?: No Contact w/someone who lives/traveled outside US past 30 days?: No Exposure to someone with infectious disease in past 14 days?: No Do you have a fever (greater than 100.4 F or 38 C)?: No Have you tested positive for COVID-19?: No Exposed to someone with COVID-19 in past 14 days?: No Do you have a sore throat?: No Do you have a cough?: No Do you have any weakness?: No Do you have any diarrhea?: No Are you experiencing any unusual bleeding?: No Do you have any muscle aches/pain?: No Do you have any abdominal pain?: No Are you experiencing loss of taste or smell?: No Other Medical History Have you received the Flu Vaccine for this season: No Have you received the Pneumonia Vaccine: No ROS Obtained: Yes Systems reviewed as appropriate & no additional complaints except as documented Per HPI Physical Exam General General appearance: alert and in no apparent distress Head Head exam: atraumatic and normocephalic Eye Eye exam: Present PERRL and EOMI ENT ENT exam: Present mucous membranes moist Neck Neck exam: Present normal inspection and full ROM Chest Chest inspection: Present symmetric chest wall rise Respiratory Respiratory exam: Present normal lung sounds bilaterally; Absent respiratory distress, wheezes or stridor Cardiovascular Cardiovascular exam: Present regular rate and normal rhythm Abdominal Exam Abdominal exam: Present soft and organomegaly (Significant hepatomegaly); Absent distention, tenderness, guarding or rebound Comment: Patient reports diffuse pressure-like discomfort in the mid and right abdomen but no tenderness Extremities Exam Extremities exam: Present full ROM Neurological Exam Neurological exam: Present alert and oriented X3; Absent motor sensory deficit Psychiatric Psychiatric exam: Present normal affect and normal mood Skin Skin exam: Present warm and dry Medical Decision Making Medical Records Medical records reviewed: Yes I reviewed the patient's medical records. Screening: Per USPSTF and CDC recommendations, given the prevalence of disease in our region, it is our hospital?s policy to screen for HIV and viral Hepatitis for all patients aged 18 and over and those with ongoing risk factors. [place] Inquiry Pt receiving controlled substance: No Vital Signs: 04/14/25 00:40 04/14/25 00:47 04/14/25 03:09 Temperature 97.8 F 98.9 F 98.9 F Temperature Source Oral Oral Oral Pulse Rate 91 H 98 H Pulse Rate [Right] 91 H Respiratory Rate 18 18 18 Blood Pressure 132/78 131/89 Blood Pressure [Right Arm] 132/78 Blood Pressure Mean [Right Arm] 96 02 Sat by Pulse Oximetry 98 98 Oxygen Delivery Method Room Air Room Air Room Air Lab Data Lab Results 04/14/25 00:37: WBC 2.8 L, RBC 3.49 L, Hgb 10.3 L, Hct 31.1 L, MCV 89.1, MCH 29.5, MCHC 33.1, RDW 18.2 H, Plt Count 461 H, MPV 11.0 H, Neut % (Auto) 54.5, Lymph % (Auto) 30.9, Howell % (Auto) 11.3 H, Eos % (Auto) 1.1, Baso % (Auto) 1.1, Neut # (Auto) 1.5 L, Lymph # (Auto) 0.9, Howell # (Auto) 0.3, Eos # (Auto) 0.0, Baso # (Auto) 0.0, PT 13.0 H, INR 1.19 H, Sodium 131 L, Potassium 3.6, Chloride 100, Carbon Dioxide 24, Anion Gap 10.6, BUN 17, Creatinine 1.20 H, Estimated Creat Clear 60, Estimated GFR 46 L, Est GFR ( Amer) 56 L, Glucose 145 H, Lactate 2.2 H, Calcium 8.9, Total Bilirubin 0.9, AST 160 H, ALT 73, Alkaline Phosphatase 630 H, Troponin I < 0.01, Total Protein 7.0, Albumin 3.1 L, Globulin 3.9 H, Albumin/Globulin Ratio 0.8 L, Lipase 54, HCV Ab SUSAN w/Rflx PCR Qn Negative, HIV Ag/Ab Combo Qual Negative 04/14/25 00:37 04/14/25 00:37 Orders (Tests/Meds): ED MEDICATIONS Discontinued Medications Generic Name Dose Route Start Last Admin Trade Name Freq PRN Reason Stop Dose Admin Lactated Ringer's 1,000 mls @ 999 mls/hr 04/14/25 01:25 04/14/25 01:37 Lactated Ringer's 1000 Ml Bag IV 04/14/25 02:25 999 mls/hr .Q1H1M ONE Administration Iopamidol 75 ml 04/14/25 01:37 04/14/25 01:38 Iopamidol-370 (76%);100ml Bottle IV 04/14/25 01:38 75 ml ONCE ONE Administration Promethazine HCl 12.5 mg 04/14/25 01:25 04/14/25 01:37 Promethazine Hcl 25mg/Ml 1ml Vial IV 04/14/25 01:26 12.5 mg ONCE ONE Administration Sodium Chloride 25 ml 04/14/25 01:25 04/14/25 01:37 Sodium Chloride 0.9% 25ml Bag IV 04/14/25 01:26 25 ml ONCE ONE Administration Sodium Chloride 10 ml 04/14/25 01:37 04/14/25 01:38 Sodium Chloride 0.9% 10ml Syr (Rad Only) IV 04/14/25 01:38 10 ml ONCE ONE Administration ORDERS Category Date Time Status CT abdomen pelvis w con Stat Cat Scan 04/14/25 00:35 Completed XR chest portable Stat Exams 04/14/25 00:35 Completed Complete Blood Count Auto Diff Stat Lab 04/14/25 00:37 Completed Comprehensive Metabolic Panel Stat Lab 04/14/25 00:37 Completed HIV Combo Stat Lab 04/14/25 00:37 Completed Hepatitis C Ab Qual. W/ RFX Stat Lab 04/14/25 00:37 Completed Lactic Acid Stat Lab 04/14/25 00:37 Completed Lipase Stat Lab 04/14/25 00:37 Completed Prothrombin Time INR Stat Lab 04/14/25 00:37 Completed Troponin I Q3H Lab 04/14/25 03:45 Ordered Troponin I Q3H Lab 04/14/25 06:45 Ordered Troponin I Stat Lab 04/14/25 00:37 Completed Urinalysis and Microscopic Stat Lab 04/14/25 00:35 Ordered Medical Decision Narrative: In summary, this 59-year-old female with comorbidities described in the HPI presents to the emergency department today with upper and right upper abdominal discomfort, nausea, vomiting. On initial evaluation patient is hemodynamically stable, afebrile, GCS 15, exam is notable for obvious hepatomegaly, no tenderness, no peritonitic findings, no other acute abnormalities appreciated on exam. Differential diagnosis includes but is not limited to metastatic disease, bowel obstruction, pancreatitis, viral syndrome, I did consider the possibility of atypical presentation of ACS though I have lower suspicion for this, did consider electrolyte abnormality, dehydration, among other. Based on these concerns, I ordered hematologic and serum labs, CT imaging, cardiac workup. ECG personally interpreted demonstrates sinus tachycardia, rate 114, normal axis, normal SD and QTc, no STEMI. Patient received IV fluids, Phenergan for treatment. She was offered pain medication but declined. Labs personally reviewed demonstrate leukopenia WBC 2.8 which patient reports is actually slightly improved than a few days ago, hemoglobin 10.3 is nonactionable at this time, thrombocythemia platelets 461, PT/INR nonactionable, CMP with slight hyponatremia is nonactionable, creatinine 1.2 does not represent KILEY based on previous labs, patient does have mildly elevated lactic at 2.2 but is already receiving IV fluids, patient does have transaminitis AST 160, ALT is normal, alk phos significantly elevated at 630 likely related to metastatic burden. Troponin undetectably low less than 0.01 significantly reassuring in the setting of nonischemic ECG and patient's duration of symptoms. I do not believe serial troponin is indicated at this time.. XR personally interpreted demonstrates findings concerning for hilar adenopathy but no other acute intrathoracic abnormality, see radiology read for final interpretation. CT imaging personally interpreted demonstrate significant metastatic burden in the liver, retroperitoneal space, and presence of ascites. See radiology read for final interpretation which comments on these findings as well as an adnexal mass and mass that appears to be causing mild to moderate hydronephrosis of the right kidney. See radiology read for final interpretation. I specifically called and spoke with the reading radiologist about the CT because of the patient's nausea and a significant hepatomegaly and metastatic burden in the area of the stomach and proximal small intestine. He states there is no obvious obstruction but there is some outlet narrowing which could be contributing to her symptoms. I discussed the findings with the patient and she states she does not recall having disease in the pelvis or compromising the kidney but knew her kidney function has been decreasing. She reiterates that she has no burning with urination, no hematuria, no fevers, no pelvic discomfort or suprapubic tenderness. I explained to the patient that it does not appear that she has an acute surgical pathology at this time but did offer the option of transfer to higher level of care for continued symptomatic management versus going home for close outpatient follow-up with her cancer team on Tuesday. She would prefer to go home which I believe is reasonable. I had her drink a bottle of water to ensure that she is able to tolerate oral intake. She was able to drink this and did not have any worsening of symptoms. She has not had any additional emesis. She would like to be discharged and is currently stable for discharge. She understands that she has evolving metastatic burden that needs very close outpatient follow-up and states she is going to follow-up on Tuesday. I provided the patient with a disc from radiology with her images since she states her last PET scan was in January and she believes some of the findings we discussed are new. Patient was given instructions on symptomatic monitoring and management, we reviewed the use of her home medications including Phenergan and Zofran so I am not prescribing any new medications, follow up instructions including to immediately follow-up with her oncology team, and return precautions for the emergency department. Patient indicated understanding and was discharged in stable condition. Critical Care Critical Care Time Critical Care Time: No
[2025-04-14 03:09] VITALS: BP 131/89; PULSE 98; RESP 18; TEMP 37.2; O2SAT 94
[2025-04-14 03:21] LABS: Hepatitis C Ab Qual. W/ RFX NEGATIVE (Negative)
[2025-04-14 04:42] LABS: Reflex Lactic Add Lactic Reflex
== END 2025-04-14 03:50 | disposition home or self-care (01) ==
PROVIDERS: Emergency Provider Emergency Medicine; PCP Internal Medicine Adolescent Medicine
DX: R10.13 Epigastric pain (principal); R10.11 Right upper quadrant pain; N13.39 Other hydronephrosis; R74.02 Elevation of levels of lactic acid dehydrogenase [LDH]; R11.2 Nausea with vomiting, unspecified; E87.1 Hypo-osmolality and hyponatremia; R00.0 Tachycardia, unspecified; C50.919 Malignant neoplasm of unspecified site of unspecified female breast; C78.7 Secondary malignant neoplasm of liver and intrahepatic bile duct; Z92.21 Personal history of antineoplastic chemotherapy
CPT/HCPCS: 71045; 74177; 80053; 83605; 83690; 84484; 85025; 85610; 86803; 87389; 93005; 96361; 96374; 99285; J2550; J7120; Q9967